=== PATIENT | male | born 1955 | race Caucasian/White ===

== ENCOUNTER 2019-12-09 15:40 | Inpatient (IN) ==
[2019-12-09] MEDS ORDERED: ASPIRIN CHEW 324 MG PO STA (16:05)
[2019-12-09] MEDS ORDERED: HEPARIN (PORCINE) 1000 UNIT/ML 10 ML (CATH LAB USE ONLY) ONE (16:15)
[2019-12-09] MEDS ORDERED: NiCARDipine HCL INJ 2.5 MG/ML 10 ML AMP ONE (16:15)
[2019-12-09] MEDS ORDERED: MIDAZOLAM HCL 1 MG/ML 2ML VIAL ONE (16:16)
[2019-12-09] MEDS ORDERED: fentaNYL citrate 100 MCG/2 ML VIAL ONE (16:16)
[2019-12-09] MEDS ORDERED: NITROGLYCERIN/D5W 100MCG/ML 20ML SYR ONE (16:17)
[2019-12-09 16:31] LABS: Basophils # (auto) 0.01 K/uL (0-0.2); Basophils % (auto) 0.1 %; Eosinophils # (auto) 0.04 K/uL (0-0.5); Eosinophils % (auto) 0.4 %; Hematocrit (blood only) 49.6 % (42-52); Hemoglobin 17.7 g/dL (14.0-18.0); Immature Granulocytes # (auto) 0.01 K/uL (0.00-0.02); Immature Granulocytes % (auto) 0.1 %; Lymphocytes # (auto) 1.36 K/uL (1.2-3.4); Lymphocytes % (auto) 14.2 %; Mean Corpuscular Hemoglobin 30.7 pg (25-34); Mean Corpuscular Hgb Conc 35.7 g/dL (32-36); Mean Platelet Volume 11.5 fL (7.4-10.4); Monocytes # (auto) 0.74 K/uL (0.11-0.59); Monocytes % (auto) 7.7 %; Neutrophils # (auto) 7.44 K/uL (1.4-6.5); Neutrophils % (auto) 77.5 %; Platelet Count 168 K/uL (130-400); RDW Coefficient of Variation 14.1 % (11.5-14.5); RDW Standard Deviation 43.3 fL (36.4-46.3); Red Blood Count 5.77 M/uL (4.7-6.1)
[2019-12-09] MEDS ORDERED: Heparin IV Low Dose WITH Bolus IV STA (16:38)
[2019-12-09 16:51] LABS: BUN Creatinine Ratio 10.5 (10-20); Calcium 9.6 mg/dl (8.5-10.1); Creatinine Clr Calc Pharmacy 47.5 ml/min; Est GFR (African American) 39.9; Est GFR (Non-African American) 34.4; Potassium 3.5 mmol/L (3.5-5.1)
[2019-12-09 17:01] LABS: Troponin I 0.033 ng/ml (0-0.045)
--- NOTE | 2019-12-09 17:39 | Cardiology Consultation ---
Date of Consultation December 09, 2019 Assessment & Plan (1) Atrial fibrillation: (2) Cardiomyopathy: (3) Pulmonary hypertension: (4) LBBB (left bundle branch block): (5) Shortness of breath: (6) Hypertension: (7) Tricuspid regurgitation: (8) CKD (chronic kidney disease): ASSESSMENT/PLAN: 1. Atrial fibrillation: New diagnosis for him. Could be causing his dyspnea with exertion as he is likely more tachycardic with exertion. At rest his heart rate was mostly 90s to 110s. Recommend increasing metoprolol and changing to metoprolol succinate given his reduced LV systolic function. Please consider metoprolol succinate 200 mg daily. Elevated chads Vasc score. Recommend antic oagulation for stroke risk reduction. He was agreeable. 2. Cardiomyopathy: Etiology uncertain. He does have significant QRS widening with his left bundle branch block. He has multiple risk factors for coronary disease including prior tobacco abuse, diabetes, and hypertension. We discussed potential ischemic evaluation but there is no urgent indication at this time is he does not appear to be acutely infarcting. His creatinine is elevated at 1.97 and therefore coronary angiography would increase risk of worsening renal function. It is not clear if this is his new baseline. Recommend metoprolol succinate as above. On losartan at home and can continue with no worsening of his renal function or consider changing to CHARITO-inhibitor. He appears euvolemic on examination and has recently lost 30 lb. Check BNP. He is not hypoxic. Check TSH. Cannot exclude tachycardia as a cause of his cardiomyopathy. 3. LBBB: New diagnosis for him but his most recent ECG to compare to was from 2 007. No acute symptoms to suggest acute infarct. Heart alert canceled. 4. Pulmonary hypertension: Etiology uncertain. No acute symptoms to suggest PE and he will be anticoagulated for atrial fibrillation. If cardiac catheterization is performed, would consider right heart catheterization as well. Does have Tobacco history. 5. Tricuspid regurgitation: Appeared moderate. Follow over time. 6. Hypertension: The can continue home medications with titration of beta- beverly as above for atrial fibrillation and cardiomyopathy. 7. CKD: On 04/06/2019 was 1.47 and today 1.97. As per primary service. 8. Disposition: I will be away from the hospital for the next [address] Huang will be available for any questions or concerns. Plan of care has been discussed with Dr. Wagner the primary hospitalist service. Highly complex medical issues. Thank you for allowing me to participate in the care of your patient. Please call for any other questions or concerns. Sincerely, Justin Solorzano M.D. History of Present Illness Reason for Consultation: Heart Alert Requesting Physician: Dr. Su Attending Physician: Dr. Su History of Present Illness Mr. Wang is a pleasant 64-year-old gentleman with a history significant for type 2 diabetes, prior stroke, and hypertension who was referred to the emergency department by his PCP today due to atrial fibrillation, dyspnea with exertion, and left bundle-branch block. Office ECG demonstrated atrial fibrillation at 92 bpm and LBBB. When he got to the emergency department, he had another ECG which demonstrated atrial fibrillation versus flutter at 97 bpm with LBBB. Due to symptoms of shortness of breath and ECG, heart alert was called by the emergency department. When presenting to the bedside, he admits that he has been short of breath for several months dating back to the summer. His shortness of breath is mostly dyspnea with exertion and believes it actually has gotten better recently. He recalls having PND a few weeks ago but none more recent. He denies orthopnea, syncope, near-syncope, chest discomfort, edema, palpitations, or bleeding such as melena, hematochezia, or hematuria. He has been unable to eat recently due to decreased appetite and could not give any further explanation but admits that he has lost approximately 30 lb over the past couple of months. He is adamant that his symptoms are no worse today than usual and that he is simply here because he was sent by his PCPs office. His PCP appointment was set up a few weeks ago as his neighbor is a physician and recommended that he be evaluated. at times, he denied shortness of breath currently but did appear short of breath at times when moving around in his bed. He denies leg pain, recent fevers, abdominal pain, nausea, vomiting, diarrhea. Review of systems: As above. Review of systems otherwise negative/unremarkable. Family history: No known premature CAD. Father had NV in his 70s. Social history: He quit smoking years ago. He has not consumed alcohol for greater than 1 year. No drugs. He has not been . No children. He lives alone. 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 He is unaccompanied. Allergies Allergy/AdvReac Type Severity Reaction Status Date / Time No Known Allergies Allergy Mild Verified 05/24/19 13:41 Home Medications Home Medications Medication Instructions Recorded Confirmed Type amlodipine 10 mg tablet 5 mg PO BID #30 tab 04/25/19 05/24/19 Rx losartan 100 mg tablet 100 mg PO DAILY #90 tab 06/24/19 Rx metoprolol tartrate 50 mg tablet 50 mg PO BID #180 tab 06/24/19 Rx peg 3350-electrolytes 236 240 ml PO Q10M #4000 ml 07/20/19 Rx gram-22.74 gram-6.74 gram-5.86 gram solution aspirin 81 mg tablet,delayed 81 mg PO DAILY #30 tab 11/29/19 11/29/19 History release metformin 500 mg tablet 500 mg PO DAILY #60 tab 11/29/19 11/29/19 History Patient History Medical History H/O: CVA (cerebrovascular accident) (Resolved) Hypertension (Chronic) Type 2 diabetes mellitus (Chronic) Surgical History History of facial surgery Family History Father Lymphoma Myocardial infarction Mother Lung cancer Social History Preferred Language: Indonesian Feels Safe at Home: Yes Smoking Status: Former smoker Age Started Using Tobacco: 14 ; Age Quit Using Tobacco: 48 ; Cigarettes Per Day: 10 ; Second Hand Exposure: No ; Physical Exam Physical Exam: Gen.: No acute distress. Alert and oriented. HEENT: Anicteric sclera. Neck: No appreciable JVD, but thick neck. No bruits. Normal carotid upstrokes bilaterally. Cardiac: PMI was nondisplaced. No ventricular heave. Irregularly irregular. Normal S1-S2. No murmurs, rubs, or gallops. Pulmonary: Clear to auscultation bilaterally without wheezes, rales, or rhonchi. Abdomen: Soft, nontender, nondistended, with normoactive bowel sounds. No bruits noted. Extremities: 2+ radial pulses bilaterally. 2+ posterior tibialis pulses bilaterally. No edema or cyanosis. No palpable cords. Psychiatric: Affect appears appropriate. Results & Data Vital Signs (Past 12 Hours) Vital Signs Temp Pulse Pulse Resp BP BP Pulse Ox 12/09/19 16:00 84 22 133/100 98 12/09/19 15:45 36.4 C L 104 H 22 154/93 H 97 Laboratory Results Laboratory Results - last 24 hr 12/09/19 12/09/19 12/09/19 16:15 16:15 16:15 WBC 9.60 RBC 5.77 Hgb 17.7 Hct 49.6 MCV 86.0 MCH 30.7 MCHC 35.7 RDW Std Deviation 43.3 RDW Coeff of Liss 14.1 Plt Count 168 MPV 11.5 H Immature Gran % (Auto) 0.1 Neut % (Auto) 77.5 Lymph % (Auto) 14.2 [place] % (Auto) 7.7 Eos % (Auto) 0.4 Baso % (Auto) 0.1 Immature Gran # (Auto) 0.01 Neut # (Auto) 7.44 H Lymph # (Auto) 1.36 [place] # (Auto) 0.74 H Eos # (Auto) 0.04 Baso # (Auto) 0.01 Sodium 139 Potassium 3.5 Chloride 106 Carbon Dioxide 22 Anion Gap 11.0 BUN 21 H Creatinine 1.97 H Est Cr Clr Drug Dosing 47.5 Est GFR ( Amer) 39.9 Est GFR (Non-Af Amer) 34.4 BUN/Creatinine Ratio 10.5 Glucose 181 H Calcium 9.6 Troponin I 0.033 Lipase 256 Diagnostic Findings ECGs personally reviewed as noted above. ECG from 05/03/2007 reviewed: Sinus rhythm 89 bpm. LVH. Lateral T-wave inversion. Chest x-ray 12/09/2019: Personally reviewed. Radiology interpretation is pending. No obvious infiltrate. Cardiomegaly however AP study. Vascular markings similar to 04/06/2019 chest x-ray. Echo 12/09/2019 reviewed at the bedside: Normal LV size with moderately to severely reduced systolic function. EF 30-35%. Global hypokinesis. Septal motion consistent with bundle-branch block. Mild to moderate LVH. Mildly dilated RV with mildly reduced systolic function. Mild MR. Moderate TR. RVSP 73. Medications Administered Current Inpatient Medications Heparin Sodium/Dextrose (Heparin Sodium/Dextrose) 25,000 units in 500 mls @ 20 mls/hr IV .Q24H YESSENIA; Protocol Stop: 01/08/20 16:44 PG Care Time/CCT Total # of Minutes Spent Total Time Spent with Patient: Total time spent is greater than 50% in coordination of care (as documented) at patient's floor/unit and/or counseling patient: Coding Level of Care Code 52069 Initial Inpt Care Lvl 3 Diagnoses Atrial fibrillation I48.91 Cardiomyopathy I42.9 Pulmonary hypertension I27.20 LBBB (left bundle branch block) I44.7 Shortness of breath R06.02 Hypertension I10 Tricuspid regurgitation I07.1 CKD (chronic kidney disease) N18.9
[2019-12-09] MEDS ORDERED: HEPARIN SOD (PORCINE) 1000 UNIT/ML 10 ML VIAL ONE (17:51)
[2019-12-09] MEDS: HEPARIN SODIUM/DEXTROSE 25,000 UNITS/500 ML BAG IV SCH (17:56)
--- NOTE | 2019-12-09 18:13 | XRay Report ---
XR chest 1V portable HISTORY: Atypical Chest Pain COMPARISON: Chest 04/06/2019. FINDINGS: The heart remains mildly enlarged. There are low lung volumes. The lungs are clear. No pleu ral effusion. No pneumothorax. No evidence for pulmonary edema. IMPRESSION: Stable mild cardiomegaly. ACT 112: Negative or not required by law. Electronically signed by: Lester Aviles M.D. 12/09/2019 6:11 PM
[2019-12-09] MEDS ORDERED: ACETAMINOPHEN 325 MG TAB PO PRN (18:36)
[2019-12-09] MEDS ORDERED: ONDANSETRON INJ 2 MG/ML 2 ML VIAL IV PRN (18:36)
[2019-12-09 19:09] LABS: Thyroid Stimulating Hormone 1.68 uIu/ml (0.300-4.500)
--- NOTE | 2019-12-09 19:12 | History & Physical Report ---
Date of Service December 09, 2019 Assessment & Plan (1) Atrial fibrillation: new diagnosis, rate is somewhat controlled at rest, 90-100, goes up with minimal activity will give Lopressor 100mg this evening (increase from normal 50mg dose) will start Toprol 200mg daily in the morning heparin drip for initial anticoagulation because renal function prohibits Lovenox may need a procedure while here so will not commit to NOAC until plan is clearer observation on tele (2) Shortness of breath: chief complaint, ongoing for about a year, slowly getting worse likely multifactorial could have undiagnosed lung disease as he was a smoker up until 15 years ago has severe pulmonary hypertension which is also contributing could be rate related dyspnea if he is have RVR on exertion will discussed with pulmonary tomorrow, hold on formal consult since it could likely wait until outpatient setting (3) Cardiomyopathy: change to Toprol 200mg daily continue Losartan certainly could have ischemic heart disease no need for urgent cath as there is no evidence of infarction renal function would need to be better prior to cath can likely defer to outpatient (4) Pulmonary hypertension: continue Amlodipine discuss with pulmonary may consider work up such as right heart cath while here (5) LBBB (left bundle branch block): troponin negative no chest pain/pressure likely chronic issue (6) CKD (chronic kidney disease): stage III/IV disease will follow BMP daily may be prohibitive of getting heart cath (7) Type 2 diabetes mellitus: (8) Hypertension: History of Present Illness Chief Complaint: I can't breathe Primary Care Provider: Nora Womack MD 64 yo male with history of HTN, tobacco abuse who presented to the ED today due to worsening shortness of breath. He reports that he has noticed some dyspnea over the past year, started with some mild dyspnea on exertion, he noticed he would get winded faster than in the past. He noticed that he could not walk as far without getting short of breath. Progressed to the point that he was having some dyspnea at rest, had some nocturnal dyspnea, orthopnea. He was advised by his neighbor to get evaluated. He called his PCP and she advised him to come to the ED for evaluation. Dyspnea is his primary complaint. He denies having chest pain or pressure, no palpitations. No fever/chills, no cough. He smoked up until 15 years ago, he was 49 at the time he quit, smoked for 30 years. 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 Prior to these symptoms starting gradually a year ago, he has never experienced shortness of breath. Reports that he was an avid hiker, would carry heavy back pack and would hike up the mountains in the area without difficulty. He has not been able to do that the past year. No known history of coronary disease. He does not follow with his PCP very closely, has a history of HTN and he reports that he takes his medications as prescribed. In the ED he was found to be in atrial fibrillation with rates in the 90-100 range. He had a new LBBB on the EKG. Cardiology called to evaluate patient, initially a heart alert was called due to the new LBBB finding. Since he had no chest pain or pressure and it was unclear if the LBBB was brand new, a troponin was ordered. Troponin was 0.03 so he was not taken for heart cath. CXR showed cardiomegaly. BNP elevated at 5000. Urgent echocardiogram performed, showed reduced EF of 35%, extremely high pulmonary pressures at 73mmHg, tricuspid regurgitation. Discussed plan with Dr. Solorzano at the time of admission. Allergies Allergy/AdvReac Type Severity Reaction Status Date / Time No Known Allergies Allergy Mild Verified 05/24/19 13:41 Home Medications Home Medications Medication Instructions Recorded Confirmed Type amlodipine 10 mg tablet 5 mg PO BID #30 tab 04/25/19 05/24/19 Rx losartan 100 mg tablet 100 mg PO DAILY #90 tab 06/24/19 Rx metoprolol tartrate 50 mg tablet 50 mg PO BID #180 tab 06/24/19 Rx peg 3350-electrolytes 236 240 ml PO Q10M #4000 ml 07/20/19 Rx gram-22.74 gram-6.74 gram-5.86 gram solution aspirin 81 mg tablet,delayed 81 mg PO DAILY #30 tab 11/29/19 11/29/19 History release metformin 500 mg tablet 500 mg PO DAILY #60 tab 11/29/19 11/29/19 History Past Med/Surg History Medical History H/O: CVA (cerebrovascular accident) (Resolved) Hypertension (Chronic) Type 2 diabetes mellitus (Chronic) Surgical History History of facial surgery Family History Father Lymphoma Myocardial infarction Mother Lung cancer Social History Preferred Language: [place] Communication Ability: Effective 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 Beliefs That Will Affect Care: None Current Living Situation: Alone Feels Safe at Home: Yes Smoking Status: Former smoker Age Started Using Tobacco: 14 ; Age Quit Using Tobacco: 48 ; Cigarettes Per Day: 10 ; Second Hand Exposure: No ; Hx Alcohol Use: No Hx Substance Use: No Review of Systems Review of Systems: All systems reviewed & are unremarkable except as noted in HPI & below Constitutional: + weight loss (30 lbs); no fever, no chills, no sweats, no fatigue and no weakness Respiratory: + dyspnea and + dyspnea on exertion; no cough, no hemoptysis and no wheezing Cardiovascular: + dyspnea and + dyspnea on exertion; no chest pain, no palpitations, no syncope and no edema Gastrointestinal: no abdominal pain, no nausea, no vomiting, no constipation and no diarrhea/loose stools Genitourinary: no dysuria, no difficulty urinating, no urinary frequency and no urinary hesitancy Neurologic: no falls, no localized weakness, no generalized weakness, no numbness, no tremor(s) and no headache(s) Physical Exam Constitutional: WD/WN, vitals as above + obese; no acute distress Eyes: PERRL, conjunctivae normal, anicteric sclerae ENMT: external ear and nose normal, oropharynx normal Neck: trachea midline, no thyromegaly Respiratory: normal respiratory effort; no respiratory distress Auscultation: + diminished lung sounds; no crackles, no rhonchi and no wheezes Cardiovascular: Rate/Rhythm: + tachycardic and + irregularly irregular Heart Sounds: normal S1 and normal S2 Extremities: normal capillary refill; no edema Gastrointestinal (Abdomen): normal bowel sounds, soft, nontender, no hepatosplenomegaly Musculoskeletal: no cyanosis or clubbing, extremities motor strength 5/5 Skin: no rashes, warm and dry Neurologic: patellar DTR's 2+ bilat, sensation intact and PERRL, EOMI, accommodation nl, no face palsy, no dysarthria Psychiatric: A+Ox3, euthymic affect Lymphatic: no cervical or axillary lymphadenopathy Results & Data Vital Signs (Past 12 Hours) Vital Signs Temp Pulse Pulse Resp BP BP Pulse Ox 12/09/19 18:38 36.8 C 92 H 18 172/100 H 97 12/09/19 18:00 110 H 14 124/69 95 12/09/19 16:05 95 12/09/19 16:00 84 22 133/100 98 12/09/19 15:45 36.4 C L 104 H 22 154/93 H 97 Laboratory Results Laboratory Results - last 24 hr 12/09/19 12/09/19 12/09/19 16:15 16:15 16:15 WBC 9.60 RBC 5.77 Hgb 17.7 Hct 49.6 MCV 86.0 MCH 30.7 MCHC 35.7 RDW Std Deviation 43.3 RDW Coeff of Liss 14.1 Plt Count 168 MPV 11.5 H Immature Gran % (Auto) 0.1 Neut % (Auto) 77.5 Lymph % (Auto) 14.2 [place] % (Auto) 7.7 Eos % (Auto) 0.4 Baso % (Auto) 0.1 Immature Gran # (Auto) 0.01 Neut # (Auto) 7.44 H Lymph # (Auto) 1.36 [place] # (Auto) 0.74 H Eos # (Auto) 0.04 Baso # (Auto) 0.01 Sodium 139 Potassium 3.5 Chloride 106 Carbon Dioxide 22 Anion Gap 11.0 BUN 21 H Creatinine 1.97 H Est Cr Clr Drug Dosing 47.5 Est GFR ( Amer) 39.9 Est GFR (Non-Af Amer) 34.4 BUN/Creatinine Ratio 10.5 Glucose 181 H POC Glucose Calcium 9.6 Magnesium Troponin I 0.033 NT-Pro-B Natriuret Pep Lipase 256 TSH 12/09/19 12/09/19 16:15 20:17 WBC RBC Hgb Hct MCV MCH MCHC RDW Std Deviation RDW Coeff of Liss Plt Count MPV Immature Gran % (Auto) Neut % (Auto) Lymph % (Auto) [place] % (Auto) Eos % (Auto) Baso % (Auto) Immature Gran # (Auto) Neut # (Auto) Lymph # (Auto) [place] # (Auto) Eos # (Auto) Baso # (Auto) Sodium Potassium Chloride Carbon Dioxide Anion Gap BUN Creatinine Est Cr Clr Drug Dosing Est GFR ( Amer) Est GFR (Non-Af Amer) BUN/Creatinine Ratio Glucose POC Glucose 171 H Calcium Magnesium 2.0 Troponin I NT-Pro-B Natriuret Pep 5689 H Lipase TSH 1.680 Diagnostic Findings XR chest 1V portable IMPRESSION: Stable mild cardiomegaly ECHOCARDIOGRAM reduced EF of 35%, elevated pulmonary arterial pressure of 73mmHg, tricuspid regurgitation ECG Indication: SOB/dyspnea Rhythm: atrial fibrillation Findings: + LBBB Change: the following changes noted (LBBB) Code Status & VTE Plan Code Status full code VTE Prophylaxis Plan VTE Prophylaxis will be ordered: Yes PG Care Time/CCT Total # of Minutes Spent Total Time Spent with Patient: Total time spent is greater than 50% in coordination of care (as documented) at patient's floor/unit and/or counseling patient: Coding Level of Care Code 34259 OBS Care - Level 3 Diagnoses Atrial fibrillation I48.91 Shortness of breath R06.02 Cardiomyopathy I42.9 Pulmonary hypertension I27.20 LBBB (left bundle branch block) I44.7 CKD (chronic kidney disease) N18.9 Type 2 diabetes mellitus E11.9 Hypertension I10
--- NOTE | 2019-12-09 20:10 | Emergency Department Note ---
Entered by Bulmaro Hannah acting as a scribe for History of Present Illness General Chief complaint: Shortness of Breath/Dyspnea Stated complaint: SOB Time Seen by Provider: 12/09/19 16:00 Source: patient History of Present Illness Onset (ago): month(s) (few) Location: chest Pain Consistency: + intermittent Maximum Pain Intensity: 1 Quality: + other (SOB) Exacerbated By: + movement (exertion) Associated symptoms: + denies other symptoms (palpitations); no chest pain The patient is a 64 y/o male who presents to the ED w/ CC of intermittent shortness of breath beginning a few months ago. The patient states his shortness of breath worsens with exertion. He reports he was evaluated by his PCP and was diagnosed with new onset A-fib. The patient notes he was told to come to the ED for further evaluation. He denies chest pain at this time and palpitations. Patient denies any recent travel. No exogenous hormone usage. No hemoptysis. No fevers. Home Medications Home Medications Medication Instructions Recorded Confirmed Type amlodipine 10 mg tablet 5 mg PO BID #30 tab 04/25/19 05/24/19 Rx losartan 100 mg tablet 100 mg PO DAILY #90 tab 06/24/19 Rx metoprolol tartrate 50 mg tablet 50 mg PO BID #180 tab 06/24/19 Rx peg 3350-electrolytes 236 240 ml PO Q10M #4000 ml 07/20/19 Rx gram-22.74 gram-6.74 gram-5.86 gram solution aspirin 81 mg tablet,delayed 81 mg PO DAILY #30 tab 11/29/19 11/29/19 History release metformin 500 mg tablet 500 mg PO DAILY #60 tab 11/29/19 11/29/19 History Allergies Allergy/AdvReac Type Severity Reaction Status Date / Time No Known Allergies Allergy Mild Verified 05/24/19 13:41 Past Med/Surg History Medical History H/O: CVA (cerebrovascular accident) (Resolved) Hypertension (Chronic) Type 2 diabetes mellitus (Chronic) Surgical History History of facial surgery Family History Father Lymphoma Myocardial infarction Mother Lung cancer Social History Preferred Language: Bahamian Communication Ability: Effective Ignition Mechanic Required: No Beliefs That Will Affect Care: None Current Living Situation: Alone Feels Safe at Home: Yes Smoking Status: Former smoker Age Started Using Tobacco: 14 ; Age Quit Using Tobacco: 48 ; Cigarettes Per Day: 10 ; Second Hand Exposure: No ; Hx Alcohol Use: No Hx Substance Use: No Review of Systems See HPI for pertinent positives & negatives. and A total of 10 systems reviewed and were otherwise negative Physical Exam Vital Signs Vital Signs - 24 hr 12/09/19 15:45 12/09/19 16:00 12/09/19 16:05 Temperature 36.4 C L Temperature Source Oral Pulse Rate 104 H Pulse Rate [Right Radial] 84 Pulse Rhythm [Right Radial] Irregular Pulse Strength [Right Radial] Normal Respiratory Rate 22 22 Respiratory Effort / Characteristics Non-Labored Spontaneous Respiratory Depth Normal Respiratory Pattern Regular Blood Pressure 154/93 H Blood Pressure [Right Arm] 133/100 Blood Pressure Mean 113 Blood Pressure Mean [Right Arm] 111 Blood Pressure Position [Right Arm] Sitting Pulse Oximetry 97 98 95 Oxygen Delivery Method Room Air Room Air Room Air Sepsis Recent Fever Within 48 Hours No Sepsis New/Unexplained Change in Mental Status No Sepsis Action Taken by Nursing No Action Required GENERAL: He is oriented to person, place, and time. He appears well-developed and well-nourished. He does not appear distressed. HENT: Exam performed. - Head: Normocephalic and atraumatic. - Right Ear: External ear normal. No mastoid tenderness. - Left Ear: External ear normal. No mastoid tenderness. - Mouth/Throat: The oropharynx is clear and moist. No trismus in the jaw. No dental abscesses or uvula swelling. No oropharyngeal exudate or tonsillar abscesses. EYES: Conjunctivae and EOM are normal. Pupils are equal, round, and reactive to light. Right eye exhibits no discharge. Left eye exhibits no discharge. No scleral icterus. NECK: Normal range of motion. Neck supple. No JVD present. No spinous process tenderness present. No carotid bruit present. No rigidity. No tracheal deviation and normal range of motion present. No Brudzinski's sign and no Kernig's sign noted. CV: Regular rate, irregular rhythm, normal heart sounds and intact distal pulses. There is no peripheral edema. Palpable radial pulses bue. PULM/CHEST: Effort normal and breath sounds normal. No respiratory distress. No stridor. He has no wheezes. He has no rales. - Chest Wall: He exhibits no tenderness. ABD: The abdomen is soft. Bowel sounds are normal. He has no distension. No mass is present. There is no tenderness. There is no rebound, no guarding, no Frausto's sign and no tenderness at McBurney's point. Rovsig negative. MUSC/SKEL: Normal range of motion. There is no peripheral edema, tenderness or deformity. LYMPH: No cervical adenopathy. NEURO: He is alert and oriented to person, place, and time. He has normal strength. No cranial nerve deficit or sensory deficit. Coordination and gait normal. GCS eye subscore is 4. GCS verbal subscore is 5. GCS motor subscore is 6. Cerebellar tests wnl. SKIN: Skin is warm and dry. He is not diaphoretic. PSYCH: He has a normal mood and affect. Behavior is normal. Judgment and thought content normal. Course Course 1601: Past medical records reviewed. The patient was evaluated in room B10. A complete history and physical exam was performed. 1613: EKG showed atrial fibrillation with a new left bundle branch block. Kylie's was positive. When compared to the previous EKG, the atrial fibrillation and left bundle branch block are new. A heart alert was called. Dr. Solorzano, Cardiology evaluated the patient because Dr. Andrews was scrubbed in on in the procedure. He asked me to order a STAT echocardiogram. 1623: Dr. Solorzano at bedside viewing the stat echo performed by the machine operator slitter technician and he states the patient has a poor EF and should be admitted to the hospitalist service and started on heparin. If the patient has an elevated troponin, he will take the patient to the lab coordinator. If there is no elevation in his troponin, the patient does not need an emergent catheterization. 1650: I updated the patient of the treatment plan. He is in agreement with the plan. I reviewed the patient's case with Konstantin [facility] Hospitalist. She will evaluate the patient for further management. Administered Medications Heparin Sodium/Dextrose (Heparin Sodium/Dextrose) 25,000 units in 500 mls @ 20 mls/hr IV .Q24H YESSENIA; Protocol Stop: 01/08/20 16:44 Last Titration: 12/09/19 19:15 Dose: 1,000 units/hr, 20 mls/hr Documented by: [id number] Cosigned by: [id number] Titration: 12/09/19 18:30 Dose: 1,000 units/hr, 20 mls/hr Documented by: [id number] Cosigned by: [id number] Admin: 12/09/19 17:56 Dose: 1,000 units/hr, 20 mls/hr Documented by: [id number] Cosigned by: [id number] Discontinued Medications Aspirin (Aspirin) 324 mg PO NOW STA Stop: 12/09/19 16:06 Last Admin: 12/09/19 16:15 Dose: 324 mg Documented by: [id number] Fentanyl Citrate (Fentanyl Citrate) Confirm Administered Dose 100 mcg .ROUTE .STK-MED ONE Stop: 12/09/19 16:17 Last Admin: 12/09/19 17:35 Dose: Not Given Documented by: [id number] Heparin Sodium (Porcine) (Heparin Iv Bolus ([employer] Use Only)) Confirm Ad ministered Dose 10,000 units .ROUTE .STK-MED ONE Stop: 12/09/19 16:16 Last Admin: 12/09/19 17:36 Dose: Not Given Documented by: [id number] Heparin Sodium (Porcine) (Heparin Iv Bolus) Confirm Administered Dose 10,000 units .ROUTE .STK-MED ONE Stop: 12/09/19 17:52 Last Admin: 12/09/19 17:56 Dose: 4,000 units Documented by: [id number] Cosigned by: [id number] Heparin Sodium/Dextrose () 1 ea IV NOW STA; Protocol Stop: 12/09/19 16:39 Last Admin: 12/09/19 17:55 Dose: 1 ea Documented by: [id number] Heparin Sodium/Sodium Chloride (Heparin/Nss 1000 Unit/500ml Flush Bag) Confirm Administered Dose 3,000 units IV .STK-MED ONE Stop: 12/09/19 16:18 Last Admin: 12/09/19 17:35 Dose: Not Given Documented by: [id number] Midazolam HCl (Versed) Confirm Administered Dose 2 mg .ROUTE .STK-MED ONE Stop: 12/09/19 16:17 Last Admin: 12/09/19 17:35 Dose: Not Given Documented by: [id number] Nicardipine HCl (Cardene) Confirm Administered Dose 25 mg .ROUTE .STK-MED ONE Stop: 12/09/19 16:16 Last Admin: 12/09/19 17:36 Dose: Not Given Documented by: [id number] Nitroglycerin/Dextrose (Nitroglycerin/D5w 100 Mcg/Ml 20ml Syringe) Confirm Administered Dose 2,000 mcg .ROUTE .STK-MED ONE Stop: 12/09/19 16:18 Last Admin: 12/09/19 17:35 Dose: Not Given Documented by: [id number] Critical Care Time Critical Care Time: Yes Total Critical Care Time: 49 I have personally spent 49 minutes of critical care time in the direct management of this patient. This includes bedside care, interpretation of diagnostic studies, and testing, discussion with consultants, patient, and family members, and other required patient management activities. This 49 minutes is in excess of all separately billable procedures. Medical Decision Making Medical Records Attestation: I reviewed the patient's medical records. Home Medications Current Medication List: was personally reviewed by me Laboratory Data Attestation: I reviewed the patient's lab results. Result diagrams: 12/09/19 16:15 12/09/19 16:15 Lab Results 12/09/19 12/09/19 12/09/19 Range/Units 16:15 16:15 16:15 WBC 9.60 (4.8-10.8) K/uL RBC 5.77 (4.7-6.1) M/uL Hgb 17.7 (14.0-18.0) g/dL Hct 49.6 (42-52) % MCV 86.0 (80-100) fL MCH 30.7 (25-34) pg MCHC 35.7 (32-36) g/dL RDW Std Deviation 43.3 (36.4-46.3) fL RDW Coeff of Liss 14.1 (11.5-14.5) % Plt Count 168 (130-400) K/uL MPV 11.5 H (7.4-10.4) fL Immature Gran % (Auto) 0.1 % Neut % (Auto) 77.5 % Lymph % (Auto) 14.2 % [place] % (Auto) 7.7 % Eos % (Auto) 0.4 % Baso % (Auto) 0.1 % Immature Gran # (Auto) 0.01 (0.00-0.02) K/uL Neut # (Auto) 7.44 H (1.4-6.5) K/uL Lymph # (Auto) 1.36 (1.2-3.4) K/uL [place] # (Auto) 0.74 H (0.11-0.59) K/uL Eos # (Auto) 0.04 (0-0.5) K/uL Baso # (Auto) 0.01 (0-0.2) K/uL Sodium 139 (136-145) mmol/L Potassium 3.5 (3.5-5.1) mmol/L Chloride 106 (98-107) mmol/L Carbon Dioxide 22 (21-32) mmol/L Anion Gap 11.0 (3-11) BUN 21 H (7-18) mg/dl Creatinine 1.97 H (0.6-1.4) mg/dl Est Cr Clr Drug Dosing 47.5 ml/min Est GFR ( Amer) 39.9 Est GFR (Non-Af Amer) 34.4 BUN/Creatinine Ratio 10.5 (10-20) Glucose 181 H (70-99) mg/dl Calcium 9.6 (8.5-10.1) mg/dl Magnesium (1.8-2.4) mg/dl Troponin I 0.033 (0-0.045) ng/ml NT-Pro-B Natriuret Pep (0-900) pg/ml Lipase 256 (73-393) U/L TSH (0.300-4.500) uIu/ml 12/09/19 Range/Units 16:15 WBC (4.8-10.8) K/uL RBC (4.7-6.1) M/uL Hgb (14.0-18.0) g/dL Hct (42-52) % MCV (80-100) fL MCH (25-34) pg MCHC (32-36) g/dL RDW Std Deviation (36.4-46.3) fL RDW Coeff of Liss (11.5-14.5) % Plt Count (130-400) K/uL MPV (7.4-10.4) fL Immature Gran % (Auto) % Neut % (Auto) % Lymph % (Auto) % [place] % (Auto) % Eos % (Auto) % Baso % (Auto) % Immature Gran # (Auto) (0.00-0.02) K/uL Neut # (Auto) (1.4-6.5) K/uL Lymph # (Auto) (1.2-3.4) K/uL [place] # (Auto) (0.11-0.59) K/uL Eos # (Auto) (0-0.5) K/uL Baso # (Auto) (0-0.2) K/uL Sodium (136-145) mmol/L Potassium (3.5-5.1) mmol/L Chloride (98-107) mmol/L Carbon Dioxide (21-32) mmol/L Anion Gap (3-11) BUN (7-18) mg/dl Creatinine (0.6-1.4) mg/dl Est Cr Clr Drug Dosing ml/min Est GFR ( Amer) Est GFR (Non-Af Amer) BUN/Creatinine Ratio (10-20) Glucose (70-99) mg/dl Calcium (8.5-10.1) mg/dl Magnesium 2.0 (1.8-2.4) mg/dl Troponin I (0-0.045) ng/ml NT-Pro-B Natriuret Pep 5689 H (0-900) pg/ml Lipase (73-393) U/L TSH 1.680 (0.300-4.500) uIu/ml Imaging Data Radiologist's Impression: Radiology results as stated below per my review and the radiologist's interpretation: XR chest 1V portable HISTORY: Atypical Chest Pain COMPARISON: Chest 04/06/2019. FINDINGS: The heart remains mildly enlarged. There are low lung volumes. The lungs are clear. No pleural effusion. No pneumothorax. No evidence for pulmonary edema. IMPRESSION: Stable mild cardiomegaly. ACT 112: Negative or not required by law. Electronically signed by: Lester Aviles M.D. 12/09/2019 6:11 PM ECG Data Attestation: I personally reviewed and interpreted this ECG as follows: Indication: + SOB/dyspnea Rate (beats per minute): 97 Rhythm: + atrial fibrillation ECG Intervals/blocks: + Left bundle branch block ECG Findings: + Other (QRS 154, QTc 457, sgarbossa positive) Comparison ECG Date: from (2006) Change: the following changes noted (A-fib and LBBB are new) Blood Pressure Blood Pressure Findings: Elevated blood pressure Blood Pressure Disposition: further management by hospitalist FLACO Narrative 1601: Past medical records reviewed. The patient was evaluated in room B10. A complete history and physical exam was performed. 1613: EKG showed atrial fibrillation with a new left bundle branch block. Kylie's was positive. When compared to the previous EKG, the atrial fibrillation and left bundle branch block are new. A heart alert was called. Dr. Solorzano, Cardiology evaluated the patient because Dr. Andrews was scrubbed in on in the procedure. He asked me to order a STAT echocardiogram. 1623: Dr. Solorzano at bedside viewing the stat echo performed by the machine operator slitter technician and he states the patient has a poor EF and should be admitted to the hospitalist service and started on heparin. If the patient has an elevated troponin, he will take the patient to the lab coordinator. If there is no elevation in his troponin, the patient does not need an emergent catheterization. 1650: I updated the patient of the treatment plan. He is in agreement with the plan. I reviewed the patient's case with Konstantin [facility] Hospitalist. She will evaluate the patient for further management. Impression & Plan Atrial fibrillation, Left bundle branch block (LBBB) Discharge Plan Visit Data *Final* Discharge Date/Time: 12/09/19 18:12 Chief Complaint: Shortness of Breath/Dyspnea Stated Complaint: SOB ED Provider: Darian Su Discharge Problem: Atrial fibrillation, Left bundle branch block (LBBB) Patient Disposition: Being Evaluated by Hospitalist Discharge Instructions Interventions: ED Discharge Assessment Last Done: 12/09/19 18:12 Discharge Problem: Atrial fibrillation Qualifiers: Atrial fibrillation type: unspecified Qualified Code(s): I48.91 - Unspecified atrial fibrillation The scribe's documentation has been prepared under my direction and personally reviewed by me in its entirety. I confirm that the note above accurately reflects all work, treatment, procedures, and medical decision making performed by me.
[2019-12-09] MEDS: AMLODIPINE BESYLATE 5 MG TAB PO SCH (20:28)
[2019-12-09] MEDS: METOPROLOL TARTRATE 100 MG TAB PO SCH (20:38)
[2019-12-09] MEDS ORDERED: DEXTROSE 50% 50 ML SYRINGE IV PRN (20:54)
[2019-12-09] MEDS ORDERED: GLUCOSE 40% GEL 15 GM TUBE PO PRN (20:54)
[2019-12-09] MEDS ORDERED: CARBOHYDRATES FOR HYPOGLYCEMIA PO PRN (20:54)
[2019-12-09] MEDS ORDERED: GLUCAGON FOR INJ 1 MG VIAL SQ PRN (20:54)
[2019-12-09] MEDS ORDERED: GLUCOSE 10 TABS/TUBE PO PRN (20:54)
[2019-12-09] MEDS ORDERED: METOPROLOL TARTRATE 50 MG TAB PO SCH (21:00)
[2019-12-09] MEDS: INSULIN ASPART 100 UNITS/ML 3 ML PEN SC SCH (21:26)
[2019-12-10 00:43] LABS: Partial Thromboplastin Ratio 1.2; Partial Thromboplastin Time 32.2 Seconds (21.0-31.0)
[2019-12-10] MEDS ORDERED: HEPARIN IV BOLUS 4,500 UNITS in SYRINGE 0 ML IV ONE ×2 (00:49→09:00)
--- NOTE | 2019-12-10 06:42 | Electrocardiogram Report ---
Test Reason : Blood Pressure : / mmHG Vent. Rate : 097 BPM Atrial Rate : 097 BPM P-R Int : 000 ms QRS Dur : 154 ms QT Int : 360 ms P-R-T Axes : 000 -28 126 degrees QTc Int : 457 ms Atrial fibrillation Left bundle branch block Abnormal ECG When compared with ECG of 03-MAY-2007 10:06, Atrial fibrillation has replaced Sinus rhythm Left bundle branch block is now Present Confirmed by Vu Solorzano ([id number]) on 12/10/2019 6:42:16 AM Referred By: REFERRED SELF Confirmed By:Vu Solorzano
[2019-12-10 08:14] LABS: Basophils # (auto) 0.02 K/uL (0-0.2); Basophils % (auto) 0.3 %; Eosinophils # (auto) 0.08 K/uL (0-0.5); Eosinophils % (auto) 1.1 %; Hematocrit (blood only) 49.2 % (42-52); Hemoglobin 17.3 g/dL (14.0-18.0); Immature Granulocytes # (auto) 0.01 K/uL (0.00-0.02); Immature Granulocytes % (auto) 0.1 %; Lymphocytes # (auto) 1.74 K/uL (1.2-3.4); Lymphocytes % (auto) 23.1 %; Mean Corpuscular Hemoglobin 30.2 pg (25-34); Mean Corpuscular Hgb Conc 35.2 g/dL (32-36); Mean Corpuscular Volume 85.9 fL (80-100); Mean Platelet Volume 11.2 fL (7.4-10.4); Monocytes # (auto) 0.62 K/uL (0.11-0.59); Monocytes % (auto) 8.2 %; Neutrophils # (auto) 5.05 K/uL (1.4-6.5); Neutrophils % (auto) 67.2 %; Platelet Count 141 K/uL (130-400); RDW Coefficient of Variation 14.3 % (11.5-14.5); RDW Standard Deviation 43.7 fL (36.4-46.3); Red Blood Count 5.73 M/uL (4.7-6.1); White Blood Count 7.52 K/uL (4.8-10.8)
[2019-12-10 08:23] LABS: Partial Thromboplastin Ratio 1.3; Partial Thromboplastin Time 36.5 Seconds (21.0-31.0)
[2019-12-10] MEDS: INSULIN ASPART 100 UNITS/ML 3 ML PEN SC SCH ×4 (08:40→20:10)
[2019-12-10] MEDS: METOPROLOL TARTRATE 100 MG TAB PO SCH ×2 (08:41→20:12)
[2019-12-10] MEDS: ASPIRIN 81 MG ECTAB PO SCH (08:41)
[2019-12-10] MEDS: AMLODIPINE BESYLATE 5 MG TAB PO SCH ×2 (08:41→20:11)
[2019-12-10 08:55] LABS: BUN Creatinine Ratio 13.6 (10-20); Calcium 9.4 mg/dl (8.5-10.1); Creatinine Clr Calc Pharmacy 46.7 ml/min; Est GFR (African American) 39.4; Potassium 3.4 mmol/L (3.5-5.1)
[2019-12-10] MEDS: METOPROLOL SUCC 50MG EXT REL TAB PO SCH (10:11)
--- NOTE | 2019-12-10 11:10 | Hospitalist Progress Note ---
Date of Service December 10, 2019 Assessment & Plan (1) Atrial fibrillation: new diagnosis, rate is somewhat controlled at rest, 90-100, goes up with minimal activity continue Lopressor 100mg BID will start Toprol 200mg daily tomorrow morning heparin drip for initial anticoagulation because renal function prohibits Lovenox plan for NOAC tomorrow (2) Shortness of breath: chief complaint, ongoing for about a year, slowly getting worse likely multifactorial could have undiagnosed lung disease as he was a smoker up until 15 years ago has severe pulmonary hypertension which is also contributing could be rate related dyspnea if he is have RVR on exertion discussed with Dr. Roy, he recommends outpatient PFT, sleep study and pulmonary follow up (3) Cardiomyopathy: change to Toprol 200mg daily continue Losartan certainly could have ischemic heart disease no need for urgent cath as there is no evidence of infarction renal function would need to be better prior to cath d/w Dr. Huang, no plans for inpatient left heart cath (4) Pulmonary hypertension: continue Amlodipine discuss with pulmonary certainly has several reasons for pulmonary hypertension most obvious would be left heart failure needs work up for COPD with PFT, needs sleep study to look into MARIANA (5) LBBB (left bundle branch block): troponin negative no chest pain/pressure likely chronic issue (6) CKD (chronic kidney disease): stage III/IV disease will follow BMP daily Cr is 1.99, repeat tomorrow (7) Type 2 diabetes mellitus: (8) Hypertension: Subjective patient feeling better, breathing easier HR is better controlled on the metoprolol, pulse consistently in the 80's at rest will need to see his HR on exertion discussed with Dr. Huang, no need for left heart cath at this time reviewed labs, Cr is 1.99 and K is 3.4 CBC is stable patient anxious to leave Review of Systems Review of Systems: All systems reviewed & are unremarkable except as noted in HPI & below Respiratory: + dyspnea on exertion; no cough and no dyspnea Cardiovascular: no chest pain and no edema Gastrointestinal: no abdominal pain, no nausea, no vomiting, no constipation and no diarrhea/loose stools Physical Exam Constitutional: WD/WN, vitals as above + obese; no acute distress Eyes: PERRL, conjunctivae normal, anicteric sclerae ENMT: external ear and nose normal, oropharynx normal Neck: trachea midline, no thyromegaly Respiratory: normal respiratory effort; no respiratory distress Auscultation: + diminished lung sounds; no crackles, no rhonchi and no wheezes Cardiovascular: Rate/Rhythm: regular rate and + irregularly irregular Heart Sounds: normal S1 and normal S2 Extremities: normal capillary refill; no edema Gastrointestinal (Abdomen): normal bowel sounds, soft, nontender, no hepatosplenomegaly Musculoskeletal: no cyanosis or clubbing, extremities motor strength 5/5 Skin: no rashes, warm and dry Neurologic: patellar DTR's 2+ bilat, sensation intact and PERRL, EOMI, accomm odation nl, no face palsy, no dysarthria Psychiatric: A+Ox3, euthymic affect Lymphatic: no cervical or axillary lymphadenopathy Results & Data Vital Signs (Past 12 Hours) Vital Signs Temp Pulse Pulse Resp BP BP Pulse Ox 12/10/19 07:42 87 12/10/19 07:39 36.4 C L 88 22 147/99 H 91 12/10/19 02:56 36.5 C 86 20 121/89 93 12/09/19 23:55 36.5 C 87 18 129/88 91 Laboratory Results Laboratory Results - last 24 hr 12/09/19 12/09/19 12/09/19 16:15 16:15 16:15 WBC 9.60 RBC 5.77 Hgb 17.7 Hct 49.6 MCV 86.0 MCH 30.7 MCHC 35.7 RDW Std Deviation 43.3 RDW Coeff of Liss 14.1 Plt Count 168 MPV 11.5 H Immature Gran % (Auto) 0.1 Neut % (Auto) 77.5 Lymph % (Auto) 14.2 Gray % (Auto) 7.7 Eos % (Auto) 0.4 Baso % (Auto) 0.1 Immature Gran # (Auto) 0.01 Neut # (Auto) 7.44 H Lymph # (Auto) 1.36 Gray # (Auto) 0.74 H Eos # (Auto) 0.04 Baso # (Auto) 0.01 APTT PTT Ratio Sodium 139 Potassium 3.5 Chloride 106 Carbon Dioxide 22 Anion Gap 11.0 BUN 21 H Creatinine 1.97 H Est Cr Clr Drug Dosing 47.5 Est GFR ( Amer) 39.9 Est GFR (Non-Af Amer) 34.4 BUN/Creatinine Ratio 10.5 Glucose 181 H POC Glucose Calcium 9.6 Magnesium Troponin I 0.033 NT-Pro-B Natriuret Pep Lipase 256 TSH 12/09/19 12/09/19 12/10/19 16:15 20:17 00:18 WBC RBC Hgb Hct MCV MCH MCHC RDW Std Deviation RDW Coeff of Liss Plt Count MPV Immature Gran % (Auto) Neut % (Auto) Lymph % (Auto) Gray % (Auto) Eos % (Auto) Baso % (Auto) Immature Gran # (Auto) Neut # (Auto) Lymph # (Auto) Gray # (Auto) Eos # (Auto) Baso # (Auto) APTT 32.2 H PTT Ratio 1.2 Sodium Potassium Chloride Carbon Dioxide Anion Gap BUN Creatinine Est Cr Clr Drug Dosing Est GFR ( Amer) Est GFR (Non-Af Amer) BUN/Creatinine Ratio Glucose POC Glucose 171 H Calcium Magnesium 2.0 Troponin I NT-Pro-B Natriuret Pep 5689 H Lipase TSH 1.680 12/10/19 12/10/19 12/10/19 07:15 07:54 07:54 WBC 7.52 RBC 5.73 Hgb 17.3 Hct 49.2 MCV 85.9 MCH 30.2 MCHC 35.2 RDW Std Deviation 43.7 RDW Coeff of Liss 14.3 Plt Count 141 MPV 11.2 H Immature Gran % (Auto) 0.1 Neut % (Auto) 67.2 Lymph % (Auto) 23.1 Gray % (Auto) 8.2 Eos % (Auto) 1.1 Baso % (Auto) 0.3 Immature Gran # (Auto) 0.01 Neut # (Auto) 5.05 Lymph # (Auto) 1.74 Gray # (Auto) 0.62 H Eos # (Auto) 0.08 Baso # (Auto) 0.02 APTT PTT Ratio Sodium 139 Potassium 3.4 L Chloride 105 Carbon Dioxide 25 Anion Gap 9.0 BUN 27 H Creatinine 1.99 H Est Cr Clr Drug Dosing 46.7 Est GFR ( Amer) 39.4 Est GFR (Non-Af Amer) 34.0 BUN/Creatinine Ratio 13.6 Glucose 141 H POC Glucose 137 H Calcium 9.4 Magnesium Troponin I NT-Pro-B Natriuret Pep Lipase TSH 12/10/19 07:54 WBC RBC Hgb Hct MCV MCH MCHC RDW Std Deviation RDW Coeff of Liss Plt Count MPV Immature Gran % (Auto) Neut % (Auto) Lymph % (Auto) Gray % (Auto) Eos % (Auto) Baso % (Auto) Immature Gran # (Auto) Neut # (Auto) Lymph # (Auto) Gray # (Auto) Eos # (Auto) Baso # (Auto) APTT 36.5 H PTT Ratio 1.3 Sodium Potassium Chloride Carbon Dioxide Anion Gap BUN Creatinine Est Cr Clr Drug Dosing Est GFR ( Amer) Est GFR (Non-Af Amer) BUN/Creatinine Ratio Glucose POC Glucose Calcium Magnesium Troponin I NT-Pro-B Natriuret Pep Lipase TSH Medications Administered Current Inpatient Medications Acetaminophen (Tylenol) 650 mg PO Q4H PRN PRN Reason: Pain or Fever Stop: 01/08/20 18:35 Amlodipine Besylate (Norvasc) 5 mg PO BID [facility] Stop: 01/08/20 20:59 Last Admin: 12/10/19 08:41 Dose: 5 mg Documented by: Aspirin (Ecotrin Ectab) 81 mg PO DAILY [facility] Stop: 01/09/20 08:59 Last Admin: 12/10/19 08:41 Dose: 81 mg Documented by: Dextrose (Dextrose 50%) 25 - 50 ml IV UD PRN; Protocol PRN Reason: Hypoglycemia Protocol Stop: 01/08/20 20:53 Glucagon (Glucagen) 1 mg SQ UD PRN; Protocol PRN Reason: Hypoglycemia Protocol Stop: 01/08/20 20:53 Glucose (Dex4 Glucose) 4 - 8 tabs PO UD PRN; Protocol PRN Reason: Hypoglycemia Protocol Stop: 01/08/20 20:53 Glucose (Glucose 40%) 15 - 30 gm PO UD PRN; Protocol PRN Reason: Hypoglycemia Protocol Stop: 01/08/20 20:53 Heparin Sodium/Dextrose (Heparin Sodium/Dextrose) 25,000 units in 500 mls @ 28 mls/hr IV .[id number] [facility]; Protocol Stop: 01/08/20 16:44 Last Titration: 12/10/19 08:42 Dose: 1,400 units/hr, 28 mls/hr Documented by: Insulin Aspart (Novolog Flexpen) 0 units SC ACHS [facility] Stop: 01/08/20 20:59 Last Admin: 12/10/19 08:40 Dose: 1 units Documented by: Metoprolol Succinate (Toprol Xl) 200 mg PO QAM [facility] Stop: 01/09/20 08:59 Last Admin: 12/10/19 10:11 Dose: Not Given Documented by: Metoprolol Tartrate (Lopressor) 100 mg PO BID [facility] Stop: 01/08/20 20:59 Last Admin: 12/10/19 08:41 Dose: 100 mg Documented by: Miscellaneous (Carbohydrates For Hypoglycemia) 15 - 30 gm PO UD PRN PRN Reason: Hypoglycemia Protocol Stop: 01/08/20 20:53 Ondansetron HCl (Zofran) 4 mg IV Q6H PRN PRN Reason: Nausea Stop: 01/08/20 18:35 PG Care Time/CCT Total # of Minutes Spent Total Time Spent with Patient: Total time spent is greater than 50% in coordination of care (as documented) at patient's floor/unit and/or counseling patient: Coding Level of Care Code 50454 Subseq Obs Care Lvl 3 Diagnoses Atrial fibrillation I48.91 Shortness of breath R06.02 Cardiomyopathy I42.9 Pulmonary hypertension I27.20 LBBB (left bundle branch block) I44.7 CKD (chronic kidney disease) N18.9 Type 2 diabetes mellitus E11.9 Hypertension I10
--- NOTE | 2019-12-10 13:01 | Cardiology Progress Note ---
Date of Service December 10, 2019 Assessment & Plan (1) Atrial fibrillation: (2) Cardiomyopathy: (3) Pulmonary hypertension: (4) LBBB (left bundle branch block): (5) Shortness of breath: (6) Hypertension: (7) Tricuspid regurgitation: (8) CKD (chronic kidney disease): ASSESSMENT/PLAN: 1. Atrial fibrillation: Doing well on beta-blockade. No sense of palpitations. Rate seems reasonable. He is on heparin infusion will need to be transitioned to an oral anticoagulant. This could be accomplished as an outpatient. 2. Cardiomyopathy: Etiology uncertain. No current symptoms suggestive of coronary insufficiency or angina. Will likely need some form of an invasive evaluation. However, this can be deferred in the absence of an acute coronary syndrome especially in the setting of his renal dysfunction. We will initiate standard medical therapy with beta blockade. Tartrate was switched to metoprolol succinate. Defer Evan inhibition currently due to renal dysfunction. He likely has an element of pulmonary vascular congestion as well. He would likely benefit from a dose of diuretic. This may actually improve some renal function. 3. LBBB: Also consistent with his cardiomyopathy. He may be a candidate for cardiac resynchronization therapy at some point. 4. Pulmonary hypertension: Etiology uncertain. Likely combination of primary lung disease and cardiac dysfunction. 5. Tricuspid regurgitation: Appeared moderate. Follow over time. 6. Hypertension: Blood pressure appears well controlled currently. 7. CKD: No significant twisting frame changer the past 24 hours. Perhaps this represents a new baseline. Subjective This morning the patient claims to be feeling much better. He states his breathing is significantly improved. He was ambulatory around his room without limiting dyspnea. He did not report any symptoms of chest discomfort. No dizziness or lightheadedness. No sense of palpitation. Review of Systems Review of Systems: Per HPI Physical Exam Physical Exam: Gen.: No acute distress. Alert and oriented. HEENT: Anicteric sclera. Neck: No appreciable JVD, but thick neck. No bruits. Normal carotid upstrokes bilaterally. Cardiac: PMI was nondisplaced. No ventricular heave. Irregularly irregular. Normal S1-S2. No murmurs, rubs, or gallops. Pulmonary: Occasional crackle in the bases bilaterally. No expiratory wheezing. Normal respiratory effort. Abdomen: Soft, nontender, nondistended, with normoactive bowel sounds. No bruits noted. Extremities: 2+ radial pulses bilaterally. 2+ posterior tibialis pulses bilaterally. No edema or cyanosis. No palpable cords. Psychiatric: Affect appears appropriate. Results & Data Vital Signs (Past 12 Hours) Vital Signs Temp Pulse Pulse Pulse Resp BP BP 12/10/19 11:20 37.0 C 82 17 136/87 12/10/19 07:42 87 12/10/19 07:39 36.4 C L 88 22 147/99 H 12/10/19 02:56 36.5 C 86 20 121/89 Pulse Ox 12/10/19 11:20 95 12/10/19 07:42 12/10/19 07:39 91 12/10/19 02:56 93 Laboratory Results Abnormal Lab Results 12/09/19 12/09/19 12/09/19 16:15 16:15 16:15 WBC 9.60 RBC 5.77 Hgb 17.7 Hct 49.6 MCV 86.0 MCH 30.7 MCHC 35.7 RDW Std Deviation 43.3 RDW Coeff of Liss 14.1 Plt Count 168 MPV 11.5 H Immature Gran % (Auto) 0.1 Neut % (Auto) 77.5 Lymph % (Auto) 14.2 [place] % (Auto) 7.7 Eos % (Auto) 0.4 Baso % (Auto) 0.1 Immature Gran # (Auto) 0.01 Neut # (Auto) 7.44 H Lymph # (Auto) 1.36 [place] # (Auto) 0.74 H Eos # (Auto) 0.04 Baso # (Auto) 0.01 APTT PTT Ratio Sodium 139 Potassium 3.5 Chloride 106 Carbon Dioxide 22 Anion Gap 11.0 BUN 21 H Creatinine 1.97 H Est Cr Clr Drug Dosing 47.5 Est GFR ( Amer) 39.9 Est GFR (Non-Af Amer) 34.4 BUN/Creatinine Ratio 10.5 Glucose 181 H POC Glucose Calcium 9.6 Magnesium Troponin I 0.033 NT-Pro-B Natriuret Pep Lipase 256 TSH 12/09/19 12/09/19 12/10/19 16:15 20:17 00:18 WBC RBC Hgb Hct MCV MCH MCHC RDW Std Deviation RDW Coeff of Liss Plt Count MPV Immature Gran % (Auto) Neut % (Auto) Lymph % (Auto) [place] % (Auto) Eos % (Auto) Baso % (Auto) Immature Gran # (Auto) Neut # (Auto) Lymph # (Auto) [place] # (Auto) Eos # (Auto) Baso # (Auto) APTT 32.2 H PTT Ratio 1.2 Sodium Potassium Chloride Carbon Dioxide Anion Gap BUN Creatinine Est Cr Clr Drug Dosing Est GFR ( Amer) Est GFR (Non-Af Amer) BUN/Creatinine Ratio Glucose POC Glucose 171 H Calcium Magnesium 2.0 Troponin I NT-Pro-B Natriuret Pep 5689 H Lipase TSH 1.680 12/10/19 12/10/19 12/10/19 07:15 07:54 07:54 WBC 7.52 RBC 5.73 Hgb 17.3 Hct 49.2 MCV 85.9 MCH 30.2 MCHC 35.2 RDW Std Deviation 43.7 RDW Coeff of Liss 14.3 Plt Count 141 MPV 11.2 H Immature Gran % (Auto) 0.1 Neut % (Auto) 67.2 Lymph % (Auto) 23.1 [place] % (Auto) 8.2 Eos % (Auto) 1.1 Baso % (Auto) 0.3 Immature Gran # (Auto) 0.01 Neut # (Auto) 5.05 Lymph # (Auto) 1.74 [place] # (Auto) 0.62 H Eos # (Auto) 0.08 Baso # (Auto) 0.02 APTT PTT Ratio Sodium 139 Potassium 3.4 L Chloride 105 Carbon Dioxide 25 Anion Gap 9.0 BUN 27 H Creatinine 1.99 H Est Cr Clr Drug Dosing 46.7 Est GFR ( Amer) 39.4 Est GFR (Non-Af Amer) 34.0 BUN/Creatinine Ratio 13.6 Glucose 141 H POC Glucose 137 H Calcium 9.4 Magnesium Troponin I NT-Pro-B Natriuret Pep Lipase TSH 12/10/19 12/10/19 07:54 11:54 WBC RBC Hgb Hct MCV MCH MCHC RDW Std Deviation RDW Coeff of Liss Plt Count MPV Immature Gran % (Auto) Neut % (Auto) Lymph % (Auto) [place] % (Auto) Eos % (Auto) Baso % (Auto) Immature Gran # (Auto) Neut # (Auto) Lymph # (Auto) [place] # (Auto) Eos # (Auto) Baso # (Auto) APTT 36.5 H PTT Ratio 1.3 Sodium Potassium Chloride Carbon Dioxide Anion Gap BUN Creatinine Est Cr Clr Drug Dosing Est GFR ( Amer) Est GFR (Non-Af Amer) BUN/Creatinine Ratio Glucose POC Glucose 146 H Calcium Magnesium Troponin I NT-Pro-B Natriuret Pep Lipase TSH PG Care Time/CCT Total # of Minutes Spent Total Time Spent with Patient: Total time spent is greater than 50% in coordination of care (as documented) at patient's floor/unit and/or counseling patient: Coding Level of Care Code 11112 Subseq Obs Care Lvl 3 Diagnoses Atrial fibrillation I48.91 Cardiomyopathy I42.9 Pulmonary hypertension I27.20 LBBB (left bundle branch block) I44.7 Shortness of breath R06.02 Hypertension I10 Tricuspid regurgitation I07.1 CKD (chronic kidney disease) N18.9
[2019-12-10] MEDS: HEPARIN SODIUM/DEXTROSE 25,000 UNITS/500 ML BAG IV SCH (15:20)
[2019-12-10 15:23] LABS: Partial Thromboplastin Ratio 1.5; Partial Thromboplastin Time 41.6 Seconds (21.0-31.0)
[2019-12-10] MEDS ORDERED: HEPARIN IV BOLUS 4,000 UNITS in SYRINGE 0 ML IV ONE (15:45)
--- NOTE | 2019-12-10 20:15 | Electrocardiogram Report ---
Test Reason : Blood Pressure : / mmHG Vent. Rate : 086 BPM Atrial Rate : 085 BPM P-R Int : 000 ms QRS Dur : 166 ms QT Int : 434 ms P-R-T Axes : 000 -22 142 degrees QTc Int : 519 ms Atrial fibrillation Left bundle branch block Abnormal ECG When compared with ECG of 09-DEC-2019 15:56, QT has lengthened Confirmed by Morgan Huang ([id number]) on 12/10/2019 8:15:39 PM Referred By: REFERRED SELF Confirmed By:Venkat Huang
[2019-12-10 22:11] LABS: Partial Thromboplastin Ratio 1.8
[2019-12-10 22:14] LABS: Partial Thromboplastin Time 49.3 Seconds (21.0-31.0)
[2019-12-11 05:29] LABS: Hematocrit (blood only) 50.7 % (42-52); Mean Corpuscular Hemoglobin 30.8 pg (25-34); Mean Corpuscular Hgb Conc 35.5 g/dL (32-36); Mean Corpuscular Volume 86.7 fL (80-100); Mean Platelet Volume 11.7 fL (7.4-10.4); Platelet Count 153 K/uL (130-400); RDW Coefficient of Variation 14.2 % (11.5-14.5); RDW Standard Deviation 44.8 fL (36.4-46.3); Red Blood Count 5.85 M/uL (4.7-6.1); White Blood Count 8.52 K/uL (4.8-10.8)
[2019-12-11 05:39] LABS: Partial Thromboplastin Ratio 1.3; Partial Thromboplastin Time 35.1 Seconds (21.0-31.0)
[2019-12-11 05:48] LABS: BUN Creatinine Ratio 17.9 (10-20); Calcium 9.4 mg/dl (8.5-10.1); Creatinine Clr Calc Pharmacy 52.3 ml/min; Est GFR (African American) 45.1; Est GFR (Non-African American) 38.9; Potassium 3.6 mmol/L (3.5-5.1)
[2019-12-11 05:53] LABS: Prostate Specific Antigen 1.46 ng/ml (0-4)
[2019-12-11] MEDS ORDERED: HEPARIN IV BOLUS 4,500 UNITS in SYRINGE 0 ML IV ONE (07:45)
[2019-12-11] MEDS: HEPARIN SODIUM/DEXTROSE 25,000 UNITS/500 ML BAG IV SCH ×2 (08:45→23:41)
[2019-12-11] MEDS: INSULIN ASPART 100 UNITS/ML 3 ML PEN SC SCH ×4 (08:46→20:28)
[2019-12-11] MEDS: AMLODIPINE BESYLATE 5 MG TAB PO SCH ×2 (08:48→20:27)
[2019-12-11] MEDS: METOPROLOL SUCC 50MG EXT REL TAB PO SCH (08:48)
[2019-12-11] MEDS: ASPIRIN 81 MG ECTAB PO SCH (08:48)
--- NOTE | 2019-12-11 09:38 | Cardiology Progress Note ---
Date of Service December 11, 2019 Assessment & Plan (1) Atrial fibrillation: (2) Cardiomyopathy: (3) Pulmonary hypertension: (4) LBBB (left bundle branch block): (5) Shortness of breath: (6) Hypertension: (7) Tricuspid regurgitation: (8) CKD (chronic kidney disease): ASSESSMENT/PLAN: 1. Atrial fibrillation: Doing well on beta-blockade. No sense of palpitations. Seems to have good rate control on his current dose. I reviewed a switch to an oral anticoagulant. Given his degree of renal dysfunction Eliquis sounds most attractive. His renal function did improve today and Xarelto could also be considered. 2. Cardiomyopathy: He seems much better compensated after diuresis. He has been started on metoprolol succinate. He likely will require an invasive evaluation at some point to exclude coronary disease. I think we could also defer initiation of Evan inhibition until his renal function could be evaluated in the outpatient setting. Pulmonary exam is much improved today. Symptoms have also resolved. 3. LBBB: Also consistent with his cardiomyopathy. He may be a candidate for cardiac resynchronization therapy at some point. 4. Pulmonary hypertension: Etiology uncertain. Likely combination of primary lung disease and cardiac dysfunction. 5. Tricuspid regurgitation: Appeared moderate. Follow over time. 6. Hypertension: Blood pressure appears well controlled currently. 7. CKD: Improved today. I think this can be monitored in the outpatient settin g. The timing of cardiac catheterization and initiation of Evan inhibition can be deferred to the outpatient setting. Subjective This more the patient reports feeling much better. He denies significant breathing difficulty. He has been ambulatory around the room without significant limitation. No symptoms of dizziness, lightheadedness or palp itation. Review of Systems Review of Systems: Per HPI Physical Exam Physical Exam: The patient is alert and oriented. Mood and affect appeared normal. He answered all questions appropriately. HEENT: Pupils are equal and reactive to light and accommodation. Extraocular movements are intact. The sclerae are anicteric. Neuro: Cranial nerves intact Lungs: Essentially clear. Rare crackle in the base bilaterally. No expiratory wheezing. Normal respiratory effort. Cardiac: Heart demonstrates an irregular rate and rhythm. Normal S1 and S2. No murmurs on examination. Pulses: The patient has palpable radial pulses bilaterally that are equal in intensity Extremities: There was no evidence of hypoperfusion. There is no cyanosis or clubbing. Skin: I did not appreciate any rashes on examination today. Results & Data Vital Signs (Past 12 Hours) Vital Signs Temp Pulse Resp BP Pulse Ox 12/11/19 07:00 36.6 C 89 20 131/92 96 12/11/19 03:55 36.7 C 87 20 131/92 98 12/10/19 23:49 36.6 C 85 20 143/96 H 95 Laboratory Results Abnormal Lab Results 12/10/19 12/10/19 12/10/19 11:54 15:02 16:22 WBC RBC Hgb Hct MCV MCH MCHC RDW Std Deviation RDW Coeff of Liss Plt Count MPV APTT 41.6 H PTT Ratio 1.5 Sodium Potassium Chloride Carbon Dioxide Anion Gap BUN Creatinine Est Cr Clr Drug Dosing Est GFR ( Amer) Est GFR (Non-Af Amer) BUN/Creatinine Ratio Glucose POC Glucose 146 H 119 H Calcium Prostate Specific Ag 12/10/19 12/10/19 12/11/19 20:03 21:44 05:17 WBC 8.52 RBC 5.85 Hgb 18.0 Hct 50.7 MCV 86.7 MCH 30.8 MCHC 35.5 RDW Std Deviation 44.8 RDW Coeff of Liss 14.2 Plt Count 153 MPV 11.7 H APTT 49.3 H* PTT Ratio 1.8 Sodium Potassium Chloride Carbon Dioxide Anion Gap BUN Creatinine Est Cr Clr Drug Dosing Est GFR ( Amer) Est GFR (Non-Af Amer) BUN/Creatinine Ratio Glucose POC Glucose 163 H Calcium Prostate Specific Ag 12/11/19 12/11/19 12/11/19 05:17 05:17 07:19 WBC RBC Hgb Hct MCV MCH MCHC RDW Std Deviation RDW Coeff of Liss Plt Count MPV APTT 35.1 H PTT Ratio 1.3 Sodium 138 Potassium 3.6 Chloride 106 Carbon Dioxide 26 Anion Gap 6.0 BUN 32 H Creatinine 1.78 H Est Cr Clr Drug Dosing 52.3 Est GFR ( Amer) 45.1 Est GFR (Non-Af Amer) 38.9 BUN/Creatinine Ratio 17.9 Glucose 156 H POC Glucose 157 H Calcium 9.4 Prostate Specific Ag 1.460 PG Care Time/CCT Total # of Minutes Spent Total Time Spent with Patient: Total time spent is greater than 50% in coordination of care (as documented) at patient's floor/unit and/or counseling patient: Coding Level of Care Code 68771 Subseq Hosp Care Lvl 3 Diagnoses Atrial fibrillation I48.91 Cardiomyopathy I42.9 Pulmonary hypertension I27.20 LBBB (left bundle branch block) I44.7 Shortness of breath R06.02 Hypertension I10 Tricuspid regurgitation I07.1 CKD (chronic kidney disease) N18.9
[2019-12-11] MEDS ORDERED: WARFARIN SOD 10 MG TAB PO ONE (10:47)
[2019-12-11] MEDS: lisinopriL 5 MG TAB PO SCH (12:51)
--- NOTE | 2019-12-11 14:14 | Hospitalist Progress Note ---
Date of Service December 11, 2019 Assessment & Plan (1) Atrial fibrillation: new diagnosis, rate is well controlled at rest on Toprol 200mg went up to 116 with activity today which is acceptable heparin drip for initial anticoagulation because renal function prohibits Lovenox patient does not have insurance, NOAC would be too expensive start Coumadin 10mg daily, check INR ideally could use Lovenox bridge but likely Lovenox would be a few hundred dollars will need close follow up with cardiology likely a referral to coagulation clinic would be appropriate (2) Shortness of breath: chief complaint, ongoing for about a year, slowly getting worse over 6 months then really bad the past month likely multifactorial could have undiagnosed lung disease as he was a smoker up until 15 years ago has severe pulmonary hypertension which is also contributing could be rate related dyspnea if he is have RVR on exertion discussed with Dr. Roy, he recommends outpatient PFT, sleep study and pulmonary follow up [place] [facility] [place] to help set up PFT, sleep study and pulm visit also, ordered nocturnal desaturation study tonight and morning ABG to see if he would qualify for nocturnal oxygen in the meantime 2 step done today, no oxygen required at rest or on exertion (3) Cardiomyopathy: continue Toprol 200mg daily Losartan stopped start on Lisinopril 5mg daily certainly could have ischemic heart disease no need for urgent cath as there is no evidence of infarction renal function would need to be better prior to cath d/w Dr. Huang, no plans for inpatient left heart cath EF is 30-35%, global hypokinesis will need close follow up with cardiology after discharge no signs of volume overload, no edema, lungs clear, did not require Lasix during admission (4) Pulmonary hypertension: continue Amlodipine discussed with pulmonary certainly has several reasons for pulmonary hypertension most obvious would be left heart failure needs work up for COPD with PFT, needs sleep study to look into MARIANA (5) LBBB (left bundle branch block): troponin negative no chest pain/pressure likely chronic issue (6) CKD (chronic kidney disease): stage III/IV disease will follow BMP daily Cr is 1.78, repeat tomorrow (7) Type 2 diabetes mellitus: was prescribed Metformin, would not use this with CKD checking HbA1c at this time, due to complex issues with breathing and heart, would just recommend diet control certainly if his A1c is extremely high then another approach would be warranted sugars here have been stable (8) Hypertension: BP well controlled on Norvasc 5mg BID, Toprol 200mg daily and Lisinopril 5mg the Toprol and Lisinopril are new medications Plan: keep the patient again today to monitor HR response to Toprol nocturnal desaturation study tonight will need Coumadin on discharge and referral to coagulation clinic will need PFT and sleep study referrals and pulm follow up will need cardiology follow up can likely go home tomorrow, patient is anxious to leave no Medicare or other insurance, ask CM to help him with Medicare paperwork new meds are Toprol, Lisinopril, Coumadin should stop Losartan, Lopressor, Metformin Subjective patient continues to report that he is feeling better, however he gets winded just talking with me no hypoxia, had respiratory perform 2 step, no oxygen needed HR better while at rest on the Toprol 200mg, in the 80's he said that the RN placed oxygen on him last night for some desaturations, he slept well with the oxygen discussed the need to arrange for a lot of testing after discharge he has no insurance, we discussed NOAC but there is no way he could afford it will start Coumadin today 10mg Cr is 1.7 today, CBC stable PSA normal (he was c/o LUTS) HbA1c pending due to the weekend Review of Systems Review of Systems: All systems reviewed & are unremarkable except as noted in HPI & below Respiratory: + dyspnea and + dyspnea on exertion Cardiovascular: no chest pain and no edema Gastrointestinal: no abdominal pain, no nausea, no vomiting, no constipation and no diarrhea/loose stools Physical Exam Constitutional: WD/WN, vitals as above + obese; no acute distress Eyes: PERRL, conjunctivae normal, anicteric sclerae ENMT: external ear and nose normal, oropharynx normal Neck: trachea midline, no thyromegaly Respiratory: normal respiratory effort; no respiratory distress Auscultation: + diminished lung sounds; no crackles, no rhonchi and no wheezes Cardiovascular: Rate/Rhythm: regular rate and + irregularly irregular Heart Sounds: normal S1 and normal S2 Extremities: normal capillary refill; no edema Gastrointestinal (Abdomen): normal bowel sounds, soft, nontender, no hepatosplenomegaly Musculoskeletal: no cyanosis or clubbing, extremities motor strength 5/5 Skin: no rashes, warm and dry Neurologic: patellar DTR's 2+ bilat, sensation intact and PERRL, EOMI, accommodation nl, no face palsy, no dysarthria Psychiatric: A+Ox3, euthymic affect Lymphatic: no cervical or axillary lymphadenopathy Results & Data Vital Signs (Past 12 Hours) Vital Signs Temp Pulse Pulse Pulse Pulse Resp Resp 12/11/19 12:53 12/11/19 11:55 116 H 85 77 26 H 12/11/19 11:35 36.6 C 97 H 20 12/11/19 07:00 36.6 C 89 20 12/11/19 03:55 36.7 C 87 20 Resp Resp BP BP Pulse Ox Pulse Ox Pulse Ox 12/11/19 12:53 125/88 12/11/19 11:55 20 14 93 94 12/11/19 11:35 134/94 93 12/11/19 07:00 131/92 96 12/11/19 03:55 131/92 98 Pulse Ox 12/11/19 12:53 12/11/19 11:55 98 12/11/19 11:35 12/11/19 07:00 12/11/19 03:55 Laboratory Results Laboratory Results - last 24 hr 12/10/19 12/10/19 12/10/19 15:02 16:22 20:03 WBC RBC Hgb Hct MCV MCH MCHC RDW Std Deviation RDW Coeff of Liss Plt Count MPV APTT 41.6 H PTT Ratio 1.5 Sodium Potassium Chloride Carbon Dioxide Anion Gap BUN Creatinine Est Cr Clr Drug Dosing Est GFR ( Amer) Est GFR (Non-Af Amer) BUN/Creatinine Ratio Glucose POC Glucose 119 H 163 H Estimat Average Glucose Hemoglobin A1c Calcium Prostate Specific Ag 12/10/19 12/11/19 12/11/19 21:44 05:17 05:17 WBC 8.52 RBC 5.85 Hgb 18.0 Hct 50.7 MCV 86.7 MCH 30.8 MCHC 35.5 RDW Std Deviation 44.8 RDW Coeff of Liss 14.2 Plt Count 153 MPV 11.7 H APTT 49.3 H* PTT Ratio 1.8 Sodium 138 Potassium 3.6 Chloride 106 Carbon Dioxide 26 Anion Gap 6.0 BUN 32 H Creatinine 1.78 H Est Cr Clr Drug Dosing 52.3 Est GFR ( Amer) 45.1 Est GFR (Non-Af Amer) 38.9 BUN/Creatinine Ratio 17.9 Glucose 156 H POC Glucose Estimat Average Glucose Hemoglobin A1c Calcium 9.4 Prostate Specific Ag 1.460 12/11/19 12/11/19 12/11/19 05:17 05:17 07:19 WBC RBC Hgb Hct MCV MCH MCHC RDW Std Deviation RDW Coeff of Liss Plt Count MPV APTT 35.1 H PTT Ratio 1.3 Sodium Potassium Chloride Carbon Dioxide Anion Gap BUN Creatinine Est Cr Clr Drug Dosing Est GFR ( Amer) Est GFR (Non-Af Amer) BUN/Creatinine Ratio Glucose POC Glucose 157 H Estimat Average Glucose Pending Hemoglobin A1c Pending Calcium Prostate Specific Ag 12/11/19 11:30 WBC RBC Hgb Hct MCV MCH MCHC RDW Std Deviation RDW Coeff of Liss Plt Count MPV APTT PTT Ratio Sodium Potassium Chloride Carbon Dioxide Anion Gap BUN Creatinine Est Cr Clr Drug Dosing Est GFR ( Amer) Est GFR (Non-Af Amer) BUN/Creatinine Ratio Glucose POC Glucose 193 H Estimat Average Glucose Hemoglobin A1c Calcium Prostate Specific Ag Medications Administered Current Inpatient Medications Acetaminophen (Tylenol) 650 mg PO Q4H PRN PRN Reason: Pain or Fever Stop: 01/08/20 18:35 Amlodipine Besylate (Norvasc) 5 mg PO BID YESSENIA Stop: 01/08/20 20:59 Last Admin: 12/11/19 08:48 Dose: 5 mg Documented by: Aspirin (Ecotrin Ectab) 81 mg PO DAILY YESSENIA Stop: 01/09/20 08:59 Last Admin: 12/11/19 08:48 Dose: 81 mg Documented by: Dextrose (Dextrose 50%) 25 - 50 ml IV UD PRN; Protocol PRN Reason: Hypoglycemia Protocol Stop: 01/08/20 20:53 Glucagon (Glucagen) 1 mg SQ UD PRN; Protocol PRN Reason: Hypoglycemia Protocol Stop: 01/08/20 20:53 Glucose (Dex4 Glucose) 4 - 8 tabs PO UD PRN; Protocol PRN Reason: Hypoglycemia Protocol Stop: 01/08/20 20:53 Glucose (Glucose 40%) 15 - 30 gm PO UD PRN; Protocol PRN Reason: Hypoglycemia Protocol Stop: 01/08/20 20:53 Heparin Sodium/Dextrose (Heparin Sodium/Dextrose) 25,000 units in 500 mls @ 34 mls/hr IV .[id number] [facility]; Protocol Stop: 01/08/20 16:44 Last Admin: 12/11/19 08:45 Dose: 1,700 units/hr, 34 mls/hr Documented by: Insulin Aspart (Novolog Flexpen) 0 units SC ACHS [facility] Stop: 01/08/20 20:59 Last Admin: 12/11/19 12:01 Dose: 5 units Documented by: [facility]op[facility]est[facility]) [facility] Stop: 01/10/20 10:59 Last Admin: 12/11/19 12:51 Dose: 5 mg Documented by: Metoprolol Succinate (Toprol Xl) 200 [facility] [place] Stop: 01/09/20 08:59 Last Admin: 12/11/19 08:48 Dose: 200 mg Documented by: Miscellaneous (Carbohydrates For Hypoglycemia) 15 - 30 gm PO UD PRN PRN Reason: Hypoglycemia Protocol Stop: 01/08/20 20:53 Ondansetron HCl (Zofran) 4 mg IV Q6H PRN PRN Reason: Nausea Stop: 01/08/20 18:35 PG Care Time/CCT Total # of Minutes Spent Total Time Spent: 40 Total Time Spent with Patient: Total time spent is greater than 50% in coordination of care (as documented) at patient's floor/unit and/or counseling patient: Coding Level of Care Code 55275 Subseq Hosp Care Lvl 3 Diagnoses Atrial fibrillation I48.91 Shortness of breath R06.02 Cardiomyopathy I42.9 Pulmonary hypertension I27.20 LBBB (left bundle branch block) I44.7 CKD (chronic kidney disease) N18.9 Type 2 diabetes mellitus E11.9 Hypertension I10
[2019-12-11 15:19] LABS: Partial Thromboplastin Ratio 2.1
[2019-12-11 15:29] LABS: Partial Thromboplastin Time 55.7 Seconds (21.0-31.0)
--- NOTE | 2019-12-11 18:13 | Electrocardiogram Report ---
Test Reason : Blood Pressure : / mmHG Vent. Rate : 090 BPM Atrial Rate : 088 BPM P-R Int : 000 ms QRS Dur : 160 ms QT Int : 426 ms P-R-T Axes : 000 -20 132 degrees QTc Int : 521 ms Atrial fibrillation Left bundle branch block Abnormal ECG When compared with ECG of 10-DEC-2019 06:43, No significant change was found Confirmed by Morgan Huang ([id number] on 12/11/2019 6:13:13 PM Referred By: REFERRED SELF Confirmed By:Venkat Huang
[2019-12-12 06:13] LABS: Estimated Average Glucose 212 mg/dl
[2019-12-12 08:37] LABS: Base Excess ABG 0.4 mEq/L (-9-1.8); HCO3 ABG 23 mmol/L (19-24); Oxygen Saturation ABG 96.1 % (90-95); PCO2 ABG 31 mmHg (35-46); PO2 ABG 75 mmHg (80-95); pH ABG 7.48 (7.35-7.45)
[2019-12-12 08:38] LABS: Allen Test Pos (Pos)
[2019-12-12 08:51] LABS: INR 1.4 (0.9-1.1); Prothrombin Time 13.8 Seconds (9.0-12.0)
[2019-12-12] MEDS: INSULIN ASPART 100 UNITS/ML 3 ML PEN SC SCH ×4 (09:20→20:48)
[2019-12-12] MEDS: AMLODIPINE BESYLATE 5 MG TAB PO SCH ×2 (09:21→20:48)
[2019-12-12] MEDS: lisinopriL 5 MG TAB PO SCH (09:22)
[2019-12-12] MEDS: METOPROLOL SUCC 50MG EXT REL TAB PO SCH (09:23)
[2019-12-12] MEDS: ASPIRIN 81 MG ECTAB PO SCH (09:23)
--- NOTE | 2019-12-12 09:40 | Cardiology Progress Note ---
Date of Service December 12, 2019 Assessment & Plan (1) Atrial fibrillation: (2) Left bundle branch block (LBBB): (3) CKD (chronic kidney disease): (4) Tricuspid regurgitation: (5) Shortness of breath: (6) Cardiomyopathy: (7) Pulmonary hypertension: (8) Hypertension: ASSESSMENT/PLAN: 1. Atrial fibrillation: Heart rate adequately controlled. Continue metoprolol succinate 200 mg daily. This may or may not have been contributing to his symptoms of shortness of breath. Elevated chads Vasc score. Continue outpatient anticoagulation for stroke risk reduction. Hospitalist service has chosen warfarin. If financially an option, could consider Eliquis. 2. Cardiomyopathy: Etiology uncertain. He does have significant QRS widening with his left bundle branch block. He has multiple risk factors for coronary disease including prior tobacco abuse, diabetes, and hypertension. We discussed potential ischemic evaluation but there is no urgent indication at this time. He prefers to have this done as an outpatient in the future. Continue metoprolol succinate. Continue CHARITO-inhibitor, which was started during this hospitalization in place of losartan. His exam is difficult to determine volume status. Will attempt 1 dose of Lasix 40 mg IV x1 to see if it improves his breathing. Monitor electrolytes and renal function. We discussed importance of low-sodium diet. 3. LBBB: New diagnosis for him but his most recent ECG to compare to was from 2006. No acute symptoms to suggest acute infarct. 4. Pulmonary hypertension: Etiology uncertain. No acute symptoms to suggest PE and he will be anticoagulated for atrial fibrillation. If cardiac catheterization is performed, would consider right heart catheterization as well. Does have Tobacco history. 5. Tricuspid regurgitation: Appeared moderate. Follow over time. 6. Hypertension: Blood pressure mostly normal but at times mildly hypertensive. He has had several adjustments as noted above. 7. CKD: Monitor over time. 8. Shortness of breath: Could be due to underlying pulmonary issues. Cannot rule out some degree of hypervolemia however difficult exam. One dose of Lasix as above. Pulmonology evaluation is being arranged by the primary hospitalist service. He feels much better on supplemental oxygen. 9. Disposition: Recommended cardiology follow-up on discharge in approximately 2 weeks. He is asking to go home today. Plan of care discussed with Dr. Win the primary hospitalist service. Subjective He states that he feels much better. He is now on oxygen and feels much better while on supplemental oxygen. He denies shortness of breath, chest pain, syncope, near-syncope, palpitations, or edema. He wants to go home. He does not want to undergo cardiac catheterization while hospitalized. Review of systems: As above. Physical Exam Physical Exam: Gen.: No acute distress. Alert and oriented. HEENT: Anicteric sclera. Neck: No appreciable JVD, but thick neck. Cardiac: No ventricular heave. Irregularly irregular. Normal S1-S2. No murmurs, rubs, or gallops. Pulmonary: Clear to auscultation bilaterally without wheezes, rales, or rhonchi. Abdomen: Soft, nontender, nondistended, with normoactive bowel sounds. No bruits noted. Extremities: 2+ radial pulses bilaterally. 2+ posterior tibialis pulses bilaterally. No edema or cyanosis. No palpable cords. Psychiatric: Affect appears appropriate. Results & Data Vital Signs (Past 12 Hours) Vital Signs Temp Pulse Pulse Resp BP BP Pulse Ox 12/12/19 07:13 36.5 C 86 22 146/104 H 96 12/12/19 04:00 36.3 C L 78 22 143/88 H 99 12/12/19 01:35 81 12/11/19 23:48 36.4 C L 92 H 22 139/77 97 12/11/19 21:35 90 Pulse Ox 12/12/19 07:13 12/12/19 04:00 12/12/19 01:35 94 12/11/19 23:48 12/11/19 21:35 95 Intake & Output 12/10/19 12/11/19 12/12/19 12/13/19 06:59 06:59 06:59 06:59 Intake Total 1087.000 / 5707.614 9835.133 / 9385.490 6735.867 / 1672.867 260.667 / 260.667 Output Total 275 / 275 700 / 700 850 / 850 Balance 812.000 / 812.000 920.133 / 920.133 822.867 / 822.867 260.667 / 260.667 Weight 113.3 kg 114.6 kg 114.9 kg Laboratory Results Laboratory Results - last 24 hr 12/11/19 12/11/19 12/11/19 05:17 11:30 14:52 PT INR APTT 55.7 H* PTT Ratio 2.1 ABG pH ABG pCO2 ABG pO2 ABG HCO3 ABG O2 Saturation ABG Base Excess Micah Test Barometric Pressure Oxygen Given POC Glucose 193 H Estimat Average Glucose 212 Hemoglobin A1c 9.0 H 12/11/19 12/11/19 12/12/19 16:01 20:08 07:29 PT INR APTT PTT Ratio ABG pH ABG pCO2 ABG pO2 ABG HCO3 ABG O2 Saturation ABG Base Excess Micah Test Barometric Pressure Oxygen Given POC Glucose 132 H 139 H 142 H Estimat Average Glucose Hemoglobin A1c 12/12/19 12/12/19 08:22 08:22 PT 13.8 H INR 1.4 H APTT PTT Ratio ABG pH 7.48 H ABG pCO2 31 L ABG pO2 75 L ABG HCO3 23 ABG O2 Saturation 96.1 H ABG Base Excess 0.4 Micah Test Pos Barometric Pressure 725.5 Oxygen Given 2L POC Glucose Estimat Average Glucose Hemoglobin A1c Diagnostic Findings Telemetry personally reviewed: Rate controlled atrial fibrillation. Medications Administered Current Inpatient Medications Acetaminophen (Tylenol) 650 mg PO Q4H PRN PRN Reason: Pain or Fever Stop: 01/08/20 18:35 Amlodipine Besylate (Norvasc) 5 mg PO BID [facility] Stop: 01/08/20 20:59 Last Admin: 12/12/19 09:21 Dose: 5 mg Documented by: Aspirin (Ecotrin Ectab) 81 mg PO DAILY [facility] Stop: 01/09/20 08:59 Last Admin: 12/12/19 09:23 Dose: 81 mg Documented by: Dextrose (Dextrose 50%) 25 - 50 ml IV UD PRN; Protocol PRN Reason: Hypoglycemia Protocol Stop: 01/08/20 20:53 Glucagon (Glucagen) 1 mg SQ UD PRN; Protocol PRN Reason: Hypoglycemia Protocol Stop: 01/08/20 20:53 Glucose (Dex4 Glucose) 4 - 8 tabs PO UD PRN; Protocol PRN Reason: Hypoglycemia Protocol Stop: 01/08/20 20:53 Glucose (Glucose 40%) 15 - 30 gm PO UD PRN; Protocol PRN Reason: Hypoglycemia Protocol Stop: 01/08/20 20:53 Heparin Sodium/Dextrose (Heparin Sodium/Dextrose) 25,000 units in 500 mls @ 34 mls/hr IV .[id number] [facility]; Protocol Stop: 01/08/20 16:44 Last Titration: 12/12/19 07:21 Dose: 1,700 units/hr, 34 mls/hr Documented by: Insulin Aspart (Novolog Flexpen) 0 units SC ACHS [facility] Stop: 01/08/20 20:59 Last Admin: 12/12/19 09:20 Dose: 3 units Documented by: Lisinopril (Zestril) 5 mg PO [facility] Stop: 01/10/20 10:59 Last Admin: 12/12/19 09:22 Dose: 5 mg Documented by: Metoprolol Succinate (Toprol Xl) 200 mg PO [facility] Stop: 01/09/20 08:59 Last Admin: 12/12/19 09:23 Dose: 200 mg Documented by: Miscellaneous (Carbohydrates For Hypoglycemia) 15 - 30 gm PO UD PRN PRN Reason: Hypoglycemia Protocol Stop: 01/08/20 20:53 Ondansetron HCl (Zofran) 4 mg IV Q6H PRN PRN Reason: Nausea Stop: 01/08/20 18:35 Warfarin Sodium (Coumadin) 5 mg PO DAILY@1600 [facility] Stop: 01/11/20 15:59 PG Care Time/CCT Total # of Minutes Spent Total Time Spent with Patient: Total time spent is greater than 50% in coordination of care (as documented) at patient's floor/unit and/or counseling patient: Coding Level of Care Code 47382 Subseq Hosp Care Lvl 3 Diagnoses Atrial fibrillation I48.91 Atrial fibrillation type: unspecified Left bundle branch block (LBBB) I44.7 CKD (chronic kidney disease) N18.9 Tricuspid regurgitation I07.1 Shortness of breath R06.02 Cardiomyopathy I42.9 Pulmonary hypertension I27.20 Hypertension I10 (1) Atrial fibrillation Atrial fibrillation type: unspecified Qualified Code(s): I48.91 - Unspecified atrial fibrillation
[2019-12-12] MEDS ORDERED: FUROSEMIDE 40 MG in SYRINGE 0 ML IV ONE (10:00)
[2019-12-12 10:11] LABS: Partial Thromboplastin Ratio 1.8
[2019-12-12 10:45] LABS: Partial Thromboplastin Time 48.2 Seconds (21.0-31.0)
[2019-12-12] MEDS: HEPARIN SODIUM/DEXTROSE 25,000 UNITS/500 ML BAG IV SCH (11:38)
[2019-12-12] MEDS: WARFARIN SOD 5 MG TAB PO SCH (17:01)
--- NOTE | 2019-12-12 18:32 | Hospitalist Progress Note ---
Date of Service December 12, 2019 Assessment & Plan (1) Atrial fibrillation: new diagnosis, presented with rapid rate which may account for his dyspnea -Now rate is well controlled at rest on Toprol 200mg and dyspnea is resolved Appreciate cardiology management -Continue heparin drip for initial anticoagulation because renal function prohibits Lovenox patient does not have insurance, NOAC would be too expensive -Continue Coumadin 5 mg daily, check INR in a.m. ideally could use Lovenox bridge but likely Lovenox would be a few hundred dollars so will not bridge upon discharge hopefully tomorrow will need close follow up with cardiology -Referral to coagulation clinic has been made (2) Systolic CHF, acute on chronic: Acute systolic CHF in setting of Afib and cardiomyopathy Now improved after 2 doses of IV Lasix No lower extremity edema, dyspnea is resolved -Follow daily weights, I's and O's -Needs low-sodium diet, fluid restriction -On Toprol-XL, lisinopril was added -Will follow-up with cardiology as an outpatient (3) Shortness of breath: chief complaint, ongoing for about a year, slowly getting worse over 6 months then really bad the past month likely multifactorial could have undiagnosed lung disease as he was a smoker up until 15 years ago has severe pulmonary hypertension which is also contributing could be rate related dyspnea if he is have RVR on exertion -Needs outpatient PFT, sleep study and pulmonary follow up -consulted [facility] [place] Nurse Navigator to help set up PFT, sleep study and pulm visit -also, ordered nocturnal desaturation study and he qualifies for nocturnal oxygen in the meantime-Case management has arranged this-he will pay out of pocket as he has no insurance 2 step done here-no oxygen required at rest or on exertion (4) Cardiomyopathy: continue Toprol 200mg daily Losartan stopped started on Lisinopril 5mg daily certainly could have ischemic heart disease no need for urgent cath as there is no evidence of infarction renal function would need to be better prior to cath d/w cardiology, no plans for inpatient left heart cath EF is 30-35%, global hypokinesis will need close follow up with cardiology after discharge -IV Lasix was given as above (5) Pulmonary hypertension: continue Amlodipine certainly has several reasons for pulmonary hypertension most obvious would be left heart failure needs work up for COPD with PFT, needs sleep study to look into MARIANA as above (6) LBBB (left bundle branch block): New since ECG in 2017 Troponin negative no chest pain/pressure likely chronic issue (7) CKD (chronic kidney disease): stage III/IV disease will follow BMP daily Cr was 1.78, repeat tomorrow in the setting of giving IV Lasix today -Avoid nephrotoxins, renally dose medications when appropriate Consider outpatient follow-up with nephrology (8) Type 2 diabetes mellitus: was prescribed Metformin, would not use this with CKD, creatinine greater than 1.5 Hemoglobin A1c here is quite elevated at 9.0% Appreciate diabetic nurse educator speaking with him-plans for diet control at this time and he has not been able to exercise much given his dyspnea which is now improved -Could consider low-dose glipizide although with renal impairment and cardiac issues, this may not be the best choice -Follow-up with PCP ultimately (9) Hypertension: BP well controlled on Norvasc 5mg BID, Toprol 200mg daily and Lisinopril 5mg the Toprol and Lisinopril are new medications Plan: keep the patient again today to monitor response to IV Lasix and renal function will need Coumadin on discharge and referral to coagulation clinic will need PFT and sleep study referrals and pulm follow up will need cardiology follow up can likely go home tomorrow, patient is anxious to leave no Medicare or other insurance, ask CM to help him with Medicare paperwork new meds are Toprol, Lisinopril, Coumadin should stop Losartan, Lopressor, Metformin Subjective Patient feeling much improved since admission. He is making more urine today after receiving another dose of Lasix. I discussed the case with cardiology. He denies chest pain. He denies shortness of breath but has not been ambulating much. Overnight oximetry showed significant hypoxemia requiring O2 this morning. Telemetry with atrial fibrillation with rates in the 80s to 90s Review of Systems Review of Systems: All systems reviewed & are unremarkable except as noted in HPI & below Physical Exam Constitutional: WD/WN, vitals as above + obese Eyes: + anicteric sclerae ENMT: external ear and nose normal, oropharynx normal Neck: trachea midline, no thyromegaly Respiratory: normal respiratory effort, lungs clear to auscultation Cardiovascular: Rate/Rhythm: regular rate and + irregularly irregular Heart Sounds: no murmur Extremities: no edema Chest (Breasts): Chest: normal inspection of chest Gastrointestinal (Abdomen): normal bowel sounds, soft, nontender, no hepatosplenomegaly Musculoskeletal: Extremities: extremities normal to inspection; no cyanosis and no clubbing Skin: no rashes, warm and dry Neurologic: moves all extremities and awake; no focal motor deficits Psychiatric: A+Ox3, euthymic affect Lymphatic: no lymphedema Results & Data Vital Signs (Past 12 Hours) Vital Signs Temp Pulse Pulse Resp BP BP Pulse Ox 12/12/19 15:09 36.4 C L 84 26 H 134/92 96 12/12/19 12:47 79 12/12/19 11:33 87 20 135/91 97 12/12/19 07:13 36.5 C 86 22 146/104 H 96 Laboratory Results 12/12/19 12/12/19 12/12/19 Range/Units 20:37 16:18 11:40 PT (9.0-12.0) Seconds INR (0.9-1.1) APTT (21.0-31.0) Seconds PTT Ratio ABG pH (7.35-7.45) ABG pCO2 (35-46) mmHg ABG pO2 (80-95) mmHg ABG HCO3 (19-24) mmol/L ABG O2 Saturation (90-95) % ABG Base Excess (-9-1.8) mEq/L Micah Test (Pos) Barometric Pressure mm/Hg Oxygen Given POC Glucose 162 H 155 H 147 H (70-99) mg/dl Estimat Average Glucose mg/dl Hemoglobin A1c (4.5-5.6) % 12/12/19 12/12/19 12/12/19 Range/Units 08:22 08:22 08:22 PT 13.8 H (9.0-12.0) Seconds INR 1.4 H (0.9-1.1) APTT 48.2 H* (21.0-31.0) Seconds PTT Ratio 1.8 ABG pH 7.48 H (7.35-7.45) ABG pCO2 31 L (35-46) mmHg ABG pO2 75 L (80-95) mmHg ABG HCO3 23 (19-24) mmol/L ABG O2 Saturation 96.1 H (90-95) % ABG Base Excess 0.4 (-9-1.8) mEq/L Micah Test Pos (Pos) Barometric Pressure 725.5 mm/Hg Oxygen Given 2L POC Glucose (70-99) mg/dl Estimat Average Glucose mg/dl Hemoglobin A1c (4.5-5.6) % 12/12/19 12/11/19 Range/Units 07:29 05:17 PT (9.0-12.0) Seconds INR (0.9-1.1) APTT (21.0-31.0) Seconds PTT Ratio ABG pH (7.35-7.45) ABG pCO2 (35-46) mmHg ABG pO2 (80-95) mmHg ABG HCO3 (19-24) mmol/L ABG O2 Saturation (90-95) % ABG Base Excess (-9-1.8) mEq/L Micah Test (Pos) Barometric Pressure mm/Hg Oxygen Given POC Glucose 142 H (70-99) mg/dl Estimat Average Glucose 212 mg/dl Hemoglobin A1c 9.0 H (4.5-5.6) % PG Care Time/CCT Total # of Minutes Spent Total Time Spent with Patient: Total time spent is greater than 50% in coordination of care (as documented) at patient's floor/unit and/or counseling patient: Coding Level of Care Code 93438 Subseq Hosp Care Lvl 2 Diagnoses Atrial fibrillation I48.91 Systolic CHF, acute on chronic I50.23 Shortness of breath R06.02 Cardiomyopathy I42.9 Pulmonary hypertension I27.20 LBBB (left bundle branch block) I44.7 CKD (chronic kidney disease) N18.9 Type 2 diabetes mellitus E11.9 Hypertension I10
[2019-12-13] MEDS: HEPARIN SODIUM/DEXTROSE 25,000 UNITS/500 ML BAG IV SCH (02:12)
[2019-12-13 06:02] LABS: INR 2.2 (0.9-1.1); Partial Thromboplastin Ratio 2.1
[2019-12-13 06:03] LABS: Hematocrit (blood only) 50.3 % (42-52); Hemoglobin 17.6 g/dL (14.0-18.0); Mean Corpuscular Volume 85.8 fL (80-100); Mean Platelet Volume 12.2 fL (7.4-10.4); Platelet Count 116 K/uL (130-400); RDW Coefficient of Variation 14.2 % (11.5-14.5); RDW Standard Deviation 43.5 fL (36.4-46.3); Red Blood Count 5.86 M/uL (4.7-6.1); White Blood Count 7.69 K/uL (4.8-10.8)
[2019-12-13 06:04] LABS: Basophils # (auto) 0.01 K/uL (0-0.2); Basophils % (auto) 0.1 %; Eosinophils # (auto) 0.07 K/uL (0-0.5); Eosinophils % (auto) 0.9 %; Immature Granulocytes # (auto) 0.02 K/uL (0.00-0.02); Immature Granulocytes % (auto) 0.3 %; Lymphocytes # (auto) 1.27 K/uL (1.2-3.4); Lymphocytes % (auto) 16.5 %; Monocytes # (auto) 0.71 K/uL (0.11-0.59); Monocytes % (auto) 9.2 %; Neutrophils # (auto) 5.61 K/uL (1.4-6.5); Platelet Estimate Decreased (Normal)
[2019-12-13 06:11] LABS: BUN Creatinine Ratio 21.2 (10-20); Calcium 9.1 mg/dl (8.5-10.1); Creatinine Clr Calc Pharmacy 60.8 ml/min; Est GFR (African American) 53.7; Est GFR (Non-African American) 46.3; Potassium 3.4 mmol/L (3.5-5.1)
[2019-12-13] MEDS ORDERED: POTASSIUM CHLORIDE 20 MEQ TABCR PO STA (06:54)
[2019-12-13] MEDS: ASPIRIN 81 MG ECTAB PO SCH (08:09)
[2019-12-13] MEDS: METOPROLOL SUCC 50MG EXT REL TAB PO SCH (08:09)
[2019-12-13] MEDS: lisinopriL 5 MG TAB PO SCH (08:10)
[2019-12-13] MEDS: AMLODIPINE BESYLATE 5 MG TAB PO SCH ×2 (08:10→20:51)
[2019-12-13] MEDS: INSULIN ASPART 100 UNITS/ML 3 ML PEN SC SCH ×4 (08:11→20:50)
[2019-12-13] MEDS ORDERED: FUROSEMIDE 40 MG in SYRINGE 0 ML IV ONE (10:00)
[2019-12-13] MEDS ORDERED: POTASSIUM CHLORIDE 20 MEQ TABCR PO ONE (12:00)
--- NOTE | 2019-12-13 14:24 | Hospitalist Progress Note ---
Date of Service December 13, 2019 Assessment & Plan (1) Atrial fibrillation: new diagnosis, presented with rapid rate which may account for his dyspnea -Now rate is well controlled at rest on Toprol 200mg, dyspnea was improved, but now worse again as below despite rate control Appreciate cardiology management -can now dc heparin drip as INR therapeutic patient does not have insurance, NOAC would be too expensive -Continue Coumadin 5 mg daily, follow INR in a.m. -will need close follow up with cardiology -Referral to coagulation clinic has been made (2) Systolic CHF, acute on chronic: Acute systolic CHF in setting of Afib and cardiomyopathy ECHO here with reduced LVEF at 30-35%, global hypokinesis Somewhat improved after 2 doses of IV Lasix No lower extremity edema, dyspnea is worse today though, weight slightly down, I/Os not accurate -give another IV lasix today -Follow daily weights, I's and O's -continue low-sodium diet, fluid restriction -On Toprol-XL, lisinopril was added -Will follow-up with cardiology as an outpatient (3) Shortness of breath: chief complaint, ongoing for about a year, slowly getting worse over 6 months then really bad the past month likely multifactorial could have undiagnosed lung disease as he was a smoker up until 15 years ago has severe pulmonary hypertension which is also contributing could be rate related dyspnea if he is have RVR on exertion Was much improved, now worse again, especially with minimal exertion -diuresing as above -start IV Solu Medrol -continue scheduled nebs -Needs outpatient PFT, sleep study and pulmonary follow up-consulted [facility] Nurse Navigator to help set up -also, ordered nocturnal desaturation study and he qualifies for nocturnal oxygen in the meantime-Case management has arranged this-he will pay out of pocket as he has no insurance -will need repeat 2 step walk test prior to dc (4) Acute respiratory failure with hypoxia: as above, now requiring O2 during day and at nighttime -continue supplemental O2 to keep POx>88-92% (5) Cardiomyopathy: continue Toprol 200mg daily Losartan from home stopped started on Lisinopril 5mg daily certainly could have ischemic heart disease no need for urgent cath as there is no evidence of infarction renal function would need to be better prior to cath d/w cardiology, no plans for inpatient left heart cath EF is 30-35%, global hypokinesis will need close follow up with cardiology after discharge -IV Lasix was given as above (6) Pulmonary hypertension: continue Amlodipine certainly has several reasons for pulmonary hypertension most obvious would be left heart failure needs work up for COPD with PFT, needs sleep study to look into MARIANA as above (7) LBBB (left bundle branch block): New since ECG in 2017 Troponin negative no chest pain/pressure likely chronic issue (8) CKD (chronic kidney disease): stage III/IV disease will follow BMP daily Cr was 1.78, now down to 1.5 after IV lasix -Avoid nephrotoxins, renally dose medications when appropriate Consider outpatient follow-up with nephrology (9) Type 2 diabetes mellitus: was prescribed Metformin, would not use this with CKD, creatinine greater than 1.5 Hemoglobin A1c here is quite elevated at 9.0% Appreciate diabetic nurse educator speaking with him-plans for diet control at this time and he has not been able to exercise much given his dyspnea which is now improved -Could consider low-dose glipizide although with renal impairment and cardiac issues, this may not be the best choice -Follow-up with PCP ultimately (10) Hypertension: BP well controlled on Norvasc 5mg BID, Toprol 200mg daily and Lisinopril 5mg the Toprol and Lisinopril are new medications Plan: keep the patient again today for worsening dyspnea will need Coumadin on discharge and referral to coagulation clinic will need PFT and sleep study referrals and pulm follow up will need cardiology follow up can likely go home tomorrow, patient is anxious to leave no Medicare or other insurance, ask CM to help him with Medicare paperwork new meds are Toprol, Lisinopril, Coumadin should stop Losartan, Lopressor, Metformin Subjective Pt significantly more SOB today and not sure why. He denies cough. He ambulated to the bathroom and back shortly before I saw him and he remained tachypneic, working ot breathe which did improve with time at rest. No chest pain. He is back on O2 today. IV lasix given again this AM andhe is urinating more today. UOP not accurately recorded from yesterday. No fevers. Tele with Afib, rates mostly 80s-90s, with some brief dips into the 40s at times. Review of Systems Review of Systems: All systems reviewed & are unremarkable except as noted in HPI & below Physical Exam Constitutional: WD/WN, vitals as above + obese Eyes: + anicteric sclerae Neck: trachea midline, no thyromegaly Respiratory: + labored breathing Auscultation: + diminished lung sounds (throughout); no crackles, no rhonchi and no wheezes Cardiovascular: Rate/Rhythm: regular rate and + irregularly irregular Heart Sounds: no murmur Extremities: no edema Chest (Breasts): Chest: normal inspection of chest Gastrointestinal (Abdomen): normal bowel sounds, soft, nontender, no hepatosplenomegaly Musculoskeletal: Extremities: extremities normal to inspection; no cyanosis and no clubbing Skin: no rashes, warm and dry Neurologic: moves all extremities and awake; no focal motor deficits Psychiatric: A+Ox3, euthymic affect Lymphatic: no lymphedema Results & Data Vital Signs (Past 12 Hours) Vital Signs Temp Pulse Resp BP Pulse Ox Pulse Ox Pulse Ox 12/13/19 11:05 36.3 C L 92 H 26 H 119/85 92 12/13/19 10:37 92 92 12/13/19 07:13 92 12/13/19 07:08 26 H 134/96 84 L 12/13/19 04:07 36.3 C L 97 H 20 155/94 H 94 Pulse Ox 12/13/19 11:05 12/13/19 10:37 88 L 12/13/19 07:13 12/13/19 07:08 12/13/19 04:07 Laboratory Results 12/13/19 12/13/19 12/13/19 Range/Units 20:33 16:27 11:27 WBC (4.8-10.8) K/uL RBC (4.7-6.1) M/uL Hgb (14.0-18.0) g/dL Hct (42-52) % MCV (80-100) fL MCH (25-34) pg MCHC (32-36) g/dL RDW Std Deviation (36.4-46.3) fL RDW Coeff of Liss (11.5-14.5) % Plt Count (130-400) K/uL MPV (7.4-10.4) fL Immature Gran % (Auto) % Neut % (Auto) % Lymph % (Auto) % Thomas % (Auto) % Eos % (Auto) % Baso % (Auto) % Immature Gran # (Auto) (0.00-0.02) K/uL Neut # (Auto) (1.4-6.5) K/uL Lymph # (Auto) (1.2-3.4) K/uL Thomas # (Auto) (0.11-0.59) K/uL Eos # (Auto) (0-0.5) K/uL Baso # (Auto) (0-0.2) K/uL Platelet Estimate (Normal) PT (9.0-12.0) Seconds INR (0.9-1.1) APTT (21.0-31.0) Seconds PTT Ratio Sodium (136-145) mmol/L Potassium (3.5-5.1) mmol/L Chloride (98-107) mmol/L Carbon Dioxide (21-32) mmol/L Anion Gap (3-11) BUN (7-18) mg/dl Creatinine (0.6-1.4) mg/dl Est Cr Clr Drug Dosing ml/min Est GFR ( Amer) Est GFR (Non-Af Amer) BUN/Creatinine Ratio (10-20) Glucose (70-99) mg/dl POC Glucose 257 H 142 H 174 H (70-99) mg/dl Calcium (8.5-10.1) mg/dl Magnesium (1.8-2.4) mg/dl 12/13/19 12/13/19 12/13/19 Range/Units 07:08 05:20 05:20 WBC 7.69 (4.8-10.8) K/uL RBC 5.86 (4.7-6.1) M/uL Hgb 17.6 (14.0-18.0) g/dL Hct 50.3 (42-52) % MCV 85.8 (80-100) fL MCH 30.0 (25-34) pg MCHC 35.0 (32-36) g/dL RDW Std Deviation 43.5 (36.4-46.3) fL RDW Coeff of Liss 14.2 (11.5-14.5) % Plt Count 116 L (130-400) K/uL MPV 12.2 H (7.4-10.4) fL Immature Gran % (Auto) 0.3 % Neut % (Auto) 73.0 % Lymph % (Auto) 16.5 % Thomas % (Auto) 9.2 % Eos % (Auto) 0.9 % Baso % (Auto) 0.1 % Immature Gran # (Auto) 0.02 (0.00-0.02) K/uL Neut # (Auto) 5.61 (1.4-6.5) K/uL Lymph # (Auto) 1.27 (1.2-3.4) K/uL Thomas # (Auto) 0.71 H (0.11-0.59) K/uL Eos # (Auto) 0.07 (0-0.5) K/uL Baso # (Auto) 0.01 (0-0.2) K/uL Platelet Estimate Decreased L (Normal) PT (9.0-12.0) Seconds INR (0.9-1.1) APTT (21.0-31.0) Seconds PTT Ratio Sodium 138 (136-145) mmol/L Potassium 3.4 L (3.5-5.1) mmol/L Chloride 107 (98-107) mmol/L Carbon Dioxide 22 (21-32) mmol/L Anion Gap 9.0 (3-11) BUN 33 H (7-18) mg/dl Creatinine 1.54 H (0.6-1.4) mg/dl Est Cr Clr Drug Dosing 60.8 ml/min Est GFR ( Amer) 53.7 Est GFR (Non-Af Amer) 46.3 BUN/Creatinine Ratio 21.2 H (10-20) Glucose 161 H (70-99) mg/dl POC Glucose 181 H (70-99) mg/dl Calcium 9.1 (8.5-10.1) mg/dl Magnesium 2.0 (1.8-2.4) mg/dl 12/13/19 Range/Units 05:20 WBC (4.8-10.8) K/uL RBC (4.7-6.1) M/uL Hgb (14.0-18.0) g/dL Hct (42-52) % MCV (80-100) fL MCH (25-34) pg MCHC (32-36) g/dL RDW Std Deviation (36.4-46.3) fL RDW Coeff of Liss (11.5-14.5) % Plt Count (130-400) K/uL MPV (7.4-10.4) fL Immature Gran % (Auto) % Neut % (Auto) % Lymph % (Auto) % Thomas % (Auto) % Eos % (Auto) % Baso % (Auto) % Immature Gran # (Auto) (0.00-0.02) K/uL Neut # (Auto) (1.4-6.5) K/uL Lymph # (Auto) (1.2-3.4) K/uL Thomas # (Auto) (0.11-0.59) K/uL Eos # (Auto) (0-0.5) K/uL Baso # (Auto) (0-0.2) K/uL Platelet Estimate (Normal) PT 21.0 H (9.0-12.0) Seconds INR 2.2 H (0.9-1.1) APTT 58.0 H* (21.0-31.0) Seconds PTT Ratio 2.1 Sodium (136-145) mmol/L Potassium (3.5-5.1) mmol/L Chloride (98-107) mmol/L Carbon Dioxide (21-32) mmol/L Anion Gap (3-11) BUN (7-18) mg/dl Creatinine (0.6-1.4) mg/dl Est Cr Clr Drug Dosing ml/min Est GFR ( Amer) Est GFR (Non-Af Amer) BUN/Creatinine Ratio (10-20) Glucose (70-99) mg/dl POC Glucose (70-99) mg/dl Calcium (8.5-10.1) mg/dl Magnesium (1.8-2.4) mg/dl PG Care Time/CCT Total # of Minutes Spent Total Time Spent with Patient: Total time spent is greater than 50% in coordination of care (as documented) at patient's floor/unit and/or counseling patient: Coding Level of Care Code 86743 Subseq Hosp Care Lvl 3 Diagnoses Atrial fibrillation I48.91 Systolic CHF, acute on chronic I50.23 Shortness of breath R06.02 Acute respiratory failure with hypoxia J96.01 Cardiomyopathy I42.9 Pulmonary hypertension I27.20 LBBB (left bundle branch block) I44.7 CKD (chronic kidney disease) N18.9 Type 2 diabetes mellitus E11.9 Hypertension I10
[2019-12-13] MEDS ORDERED: methylPREDNISolone 125 MG in SYRINGE 0 ML IV STA (14:28)
[2019-12-13] MEDS: ALBUT/IPRATROP 3MG/0.5MG NEB 3 ML VIAL NEB SCH ×2 (15:32→19:49)
[2019-12-13] MEDS: WARFARIN SOD 5 MG TAB PO SCH (16:07)
[2019-12-14] MEDS: methylPREDNISolone 60 MG in SYRINGE 0 ML IV SCH ×2 (03:53→12:33)
[2019-12-14] MEDS: ALBUT/IPRATROP 3MG/0.5MG NEB 3 ML VIAL NEB SCH (07:10)
[2019-12-14 07:42] LABS: Prothrombin Time 41.7 Seconds (9.0-12.0)
[2019-12-14 08:00] LABS: BUN Creatinine Ratio 24.2 (10-20); Calcium 9.5 mg/dl (8.5-10.1); Est GFR (African American) 50.9; Est GFR (Non-African American) 43.9; Magnesium 2.2 mg/dl (1.8-2.4); Potassium 4.6 mmol/L (3.5-5.1)
[2019-12-14 08:10] LABS: INR 4.5 (0.9-1.1)
[2019-12-14] MEDS: INSULIN ASPART 100 UNITS/ML 3 ML PEN SC SCH ×2 (08:39→12:34)
[2019-12-14] MEDS: ASPIRIN 81 MG ECTAB PO SCH (08:40)
[2019-12-14] MEDS: lisinopriL 5 MG TAB PO SCH (08:40)
[2019-12-14] MEDS: METOPROLOL SUCC 50MG EXT REL TAB PO SCH (08:40)
[2019-12-14] MEDS: AMLODIPINE BESYLATE 5 MG TAB PO SCH (08:42)
[2019-12-14] MEDS ORDERED: guaiFENesin 600 MG TABCR PO SCH (09:00)
--- NOTE | 2019-12-14 09:05 | Cardiology Progress Note ---
Date of Service December 14, 2019 Assessment & Plan (1) Atrial fibrillation: (2) Left bundle branch block (LBBB): (3) CKD (chronic kidney disease): (4) Tricuspid regurgitation: (5) Shortness of breath: (6) Cardiomyopathy: (7) Pulmonary hypertension: (8) Hypertension: ASSESSMENT/PLAN: 1. Atrial fibrillation: Heart rate adequately controlled. Metoprolol has been increased during this hospital stay. Continue metoprolol succinate 200 mg daily. Elevated chads Vasc score. Continue outpatient anticoagulation for stroke risk reduction. Hospitalist service has chosen warfarin. Financial issues have made it more challenging for NOAC agent. INR currently supratherapeutic. Hold/adjust warfarin. 2. Cardiomyopathy: Etiology uncertain. He does have significant QRS widening with his left bundle branch block. He has multiple risk factors for coronary disease including prior tobacco abuse, diabetes, and hypertension. We discussed potential ischemic evaluation but there is no urgent indication at this time. He has declined cardiac catheterization during this hospitalization but states that he would consider in the future. Continue metoprolol succinate. Continue CHARITO-inhibitor, which was started during this hospitalization in place of losartan. He has received 2 doses of Lasix 40 mg IV. His net fluid balance remains positive however he did not collect all of his urine. His weight has not significantly improved. His breathing difficulties likely due to COPD, w hich is not yet formally diagnosed. He does not appear to be significantly hypervolemic, however difficult exam. We have discussed importance of a low- sodium diet. Check daily weights at home. Titrate medications as an outpatient. 3. LBBB: New diagnosis for him but his most recent ECG to compare to was from 2006. No acute symptoms to suggest acute infarct. 4. Pulmonary hypertension: Etiology uncertain. No acute symptoms to suggest PE and he will be anticoagulated for atrial fibrillation. If cardiac catheterization is performed, would consider right heart catheterization as well. Does have Tobacco history and likely COPD. 5. Tricuspid regurgitation: Appeared moderate. Follow over time. 6. Hypertension: Blood pressure reasonably controlled. Continue current regimen. 7. CKD: Monitor over time. 8. Shortness of breath: Likely due to COPD, however he has not yet had PFTs. He has noted significant improvement in his breathing following administration of IV steroids and albuterol. As per primary service. 9. Disposition: Recommended cardiology follow-up on discharge in approximately 2 weeks. He wants to go home today. Plan of care discussed with Dr. Win the primary hospitalist service. Subjective He feels much better today. His dyspnea with exertion has almost resolved. He has received 2 doses of IV Lasix and admits that he did not collect all of his urine but most of it. Despite this, his net fluid balance is still quite positive for hospital stay if accurate. His weight has also not significantly improve, changing less than 1 keeping g. He reports significant improvement in his breathing after receiving nebulizer treatment yesterday. He really wants to go home today. He denies bleeding, chest pain, palpitations, syncope, orthopnea, or PND. Review of systems: As above. Physical Exam Physical Exam: Gen.: No acute distress. Alert and oriented. HEENT: Anicteric sclera. Neck: No appreciable JVD, but thick neck. Cardiac: No ventricular heave. Irregularly irregular. Normal heart rate. Normal S1-S2. No murmurs, rubs, or gallops. Pulmonary: Clear to auscultation bilaterally without wheezes, rales, or rhonchi. Abdomen: Soft, nontender, nondistended, with normoactive bowel sounds. No bruits noted. Extremities: 2+ radial pulses bilaterally. 2+ posterior tibialis pulses bilaterally. No edema or cyanosis. Psychiatric: Affect appears appropriate. Results & Data Vital Signs (Past 12 Hours) Vital Signs Temp Pulse Resp BP Pulse Ox 12/14/19 07:36 36.5 C 90 18 140/84 93 12/14/19 07:11 91 H 16 94 12/14/19 03:49 36.6 C 88 32 H 136/95 98 12/13/19 23:30 36.8 C 99 H 32 H 130/90 97 Intake & Output 12/12/19 12/13/19 12/14/19 12/15/19 06:59 06:59 06:59 06:59 Intake Total 1672.867 / 0398.814 4102.567 / 5167.208 9142 / 1550 Output Total 850 / 850 301 / 301 600 / 600 Balance 822.867 / 359.537 5675.567 / 1320.567 950 / 950 Weight 114.9 kg 114.4 kg 114.2 kg Laboratory Results Laboratory Results - last 24 hr 12/13/19 12/13/19 12/13/19 11:27 16:27 20:33 PT INR Sodium Potassium Chloride Carbon Dioxide Anion Gap BUN Creatinine Est Cr Clr Drug Dosing Est GFR ( Amer) Est GFR (Non-Af Amer) BUN/Creatinine Ratio Glucose POC Glucose 174 H 142 H 257 H Calcium Magnesium 12/14/19 12/14/19 12/14/19 07:07 07:07 07:33 PT 41.7 H INR 4.5 H Sodium 139 Potassium 4.6 D Chloride 108 H Carbon Dioxide 21 Anion Gap 9.0 BUN 39 H Creatinine 1.61 H Est Cr Clr Drug Dosing 58.0 Est GFR ( Amer) 50.9 Est GFR (Non-Af Amer) 43.9 BUN/Creatinine Ratio 24.2 H Glucose 273 H POC Glucose 252 H Calcium 9.5 Magnesium 2.2 Diagnostic Findings Telemetry personally reviewed: Atrial fibrillation. Reasonable heart rate control. Medications Administered Current Inpatient Medications Acetaminophen (Tylenol) 650 mg PO Q4H PRN PRN Reason: Pain or Fever Stop: 01/08/20 18:35 Albuterol (Duoneb) 3 ml NEB QIDR [facility] Stop: 01/12/20 14:59 Last Admin: 12/14/19 07:10 Dose: 3 ml Documented by: Amlodipine Besylate (Norvasc) 5 mg PO BID [facility] Stop: 01/08/20 20:59 Last Admin: 12/14/19 08:42 Dose: 5 mg Documented by: Aspirin (Ecotrin Ectab) 81 mg PO DAILY [facility] Stop: 01/09/20 08:59 Last Admin: 12/14/19 08:40 Dose: 81 mg Documented by: Dextrose (Dextrose 50%) 25 - 50 ml IV UD PRN; Protocol PRN Reason: Hypoglycemia Protocol Stop: 01/08/20 20:53 Glucagon (Glucagen) 1 mg SQ UD PRN; Protocol PRN Reason: Hypoglycemia Protocol Stop: 01/08/20 20:53 Glucose (Dex4 Glucose) 4 - 8 tabs PO UD PRN; Protocol PRN Reason: Hypoglycemia Protocol Stop: 01/08/20 20:53 Glucose (Glucose 40%) 15 - 30 gm PO UD PRN; Protocol PRN Reason: Hypoglycemia Protocol Stop: 01/08/20 20:53 Guaifenesin (Mucinex) 1,200 mg PO Q12 [facility] Stop: 01/13/20 08:59 Last Admin: 12/14/19 08:40 Dose: 1,200 mg Documented by: Methylprednisolone 60 mg/ (Syringe) 0.96 mls @ 1.5 mls/min IV Q12H [facility] Stop: 01/13/20 01:59 Last Admin: 12/14/19 03:53 Dose: 1.5 mls/min Documented by: Insulin Aspart (Novolog Flexpen) 0 units SC ACHS [facility] Stop: 01/08/20 20:59 Last Admin: 12/14/19 08:39 Dose: 6 units Documented by: Insulin Glargine (Lantus Solostar Pen) 5 units SC DAILY [facility] Stop: 01/13/20 08:59 Lisinopril (Zestril) 5 mg PO QAM [facility] Stop: 01/10/20 10:59 Last Admin: 12/14/19 08:40 Dose: 5 mg Documented by: Metoprolol Succinate (Toprol Xl) 200 mg PO QAM [facility] Stop: 01/09/20 08:59 Last Admin: 12/14/19 08:40 Dose: 200 mg Documented by: Miscellaneous (Carbohydrates For Hypoglycemia) 15 - 30 gm PO UD PRN PRN Reason: Hypoglycemia Protocol Stop: 01/08/20 20:53 Ondansetron HCl (Zofran) 4 mg IV Q6H PRN PRN Reason: Nausea Stop: 01/08/20 18:35 Warfarin Sodium (Coumadin) 5 mg PO DAILY@1600 [facility] Stop: 01/11/20 15:59 Last Admin: 12/13/19 16:07 Dose: 5 mg Documented by: PG Care Time/CCT Total # of Minutes Spent Total Time Spent with Patient: Total time spent is greater than 50% in coordination of care (as documented) at patient's floor/unit and/or counseling patient: Coding Level of Care Code 08789 Subseq Hosp Care Lvl 3 Diagnoses Atrial fibrillation I48.91 Atrial fibrillation type: unspecified Left bundle branch block (LBBB) I44.7 CKD (chronic kidney disease) N18.9 Tricuspid regurgitation I07.1 Shortness of breath R06.02 Cardiomyopathy I42.9 Pulmonary hypertension I27.20 Hypertension I10 (1) Atrial fibrillation Atrial fibrillation type: unspecified Qualified Code(s): I48.91 - Unspecified atrial fibrillation
[2019-12-14] MEDS ORDERED: INSULIN GLARGINE SOLOSTAR 100 UNITS/ML 3 ML PEN SC SCH (10:00)
--- NOTE | 2019-12-14 12:45 | Discharge Summary ---
Date of Service December 14, 2019 Admission HPI Per Admitting Provider 64 yo male with history of HTN, tobacco abuse who presented to the ED today due to worsening shortness of breath. He reports that he has noticed some dyspnea over the past year, started with some mild dyspnea on exertion, he noticed he would get winded faster than in the past. He noticed that he could not walk as far without getting short of breath. Progressed to the point that he was having some dyspnea at rest, had some nocturnal dyspnea, orthopnea. He was advised by his neighbor to get evaluated. He called his PCP and she advised him to come to the ED for evaluation. Dyspnea is his primary complaint. He denies having chest pain or pressure, no palpitations. No fever/chills, no cough. He smoked up until 15 years ago, he was 49 at the time he quit, smoked for 30 years. 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 Prior to these symptoms starting gradually a year ago, he has never experienced shortness of breath. Reports that he was an avid hiker, would carry heavy back pack and would hike up the mountains in the area without difficulty. He has not been able to do that the past year. No known history of coronary disease. He does not follow with his PCP very closely, has a history of HTN and he reports that he takes his medications as prescribed. In the ED he was found to be in atrial fibrillation with rates in the 90-100 range. He had a new LBBB on the EKG. Cardiology called to evaluate patient, initially a heart alert was called due to the new LBBB finding. Since he had no chest pain or pressure and it was unclear if the LBBB was brand new, a troponin was ordered. Troponin was 0.03 so he was not taken for heart cath. CXR showed cardiomegaly. BNP elevated at 5000. Urgent echocardiogram performed, showed reduced EF of 35%, extremely high pulmonary pressures at 73mmHg, tricuspid regurgitation. Discussed plan with Dr. Solorzano at the time of admission. Principal Diagnosis Rapid atrial fibrillation, Chronic systolic CHF, Nocturnal hypoxia Discharge Exam Constitutional WD/WN, vitals as above + obese Eyes + anicteric sclerae ENMT external ear and nose normal, oropharynx normal Neck trachea midline, no thyromegaly Respiratory normal respiratory effort, lungs clear to auscultation + labored breathing Auscultation: + diminished lung sounds (throughout); no crackles, no rhonchi and no wheezes Cardiovascular Rate/Rhythm: regular rate and + irregularly irregular Heart Sounds: no murmur Extremities: no edema Chest (Breasts) Chest: normal inspection of chest Gastrointestinal (Abdomen) normal bowel sounds, soft, nontender, no hepatosplenomegaly Musculoskeletal Extremities: extremities normal to inspection; no cyanosis and no clubbing Skin no rashes, warm and dry Neurologic moves all extremities and awake; no focal motor deficits Psychiatric A+Ox3, euthymic affect Lymphatic no lymphedema Discharge Data Allergies Allergy/AdvReac Type Severity Reaction Status Date / Time No Known Allergies Allergy Mild Verified 05/24/19 13:41 Consultations 12/09/19 16:51 ED Decision to Admit Stat 12/09/19 18:36 Consult Cardiology Routine 12/11/19 13:55 Consult [facility] diagnostic technologist Routine Procedures Performed Operation Date: 12/09/19 16:30 Actual Procedures p Aspiration/PCI w/SHEN for Stemi - Ezequiel Andrews MD Ordered Studies 12/09/19 16:20 CL Cath Imgs for PACS use only Stat CXR ECHO Hospital Course (1) Atrial fibrillation: new diagnosis, presented with rapid rate which may account for some of his dyspnea -Now rate is well controlled at rest on Toprol 200mg, dyspnea improved Appreciate cardiology management -initially was on heparin drip which was stopped when INR became therapeutic patient does not have insurance, NOAC would be too expensive -initiated Coumadin --> INR dale very quickly and was high on day of discharge at 4.5 -advised to hold coumadin and has appt with Anticoag clinic tomorrow -will need close follow up with cardiology (2) Systolic CHF, acute on chronic: Acute systolic CHF in setting of Afib and cardiomyopathy ECHO here with reduced LVEF at 30-35%, global hypokinesis Dyspnea also improved after several doses of IV Lasix No lower extremity edema, weight slightly down, I/Os not accurate throughout his stay -Follow daily weights at home, gave CHF counseling -continue low-sodium diet, fluid restriction -On Toprol-XL, lisinopril was added -Will follow-up with cardiology as an outpatient (3) Shortness of breath: chief complaint, ongoing for about a year, slowly getting worse over 6 months then really bad the past month likely multifactorial could have undiagnosed lung disease as he was a smoker up until 15 years ago has severe pulmonary hypertension which is also contributing could be rate related dyspnea if he is have RVR on exertion Also with newly diagnosed cardiomyopathy as above, improved with IV lasix -diuresed as above -treated with IV Solu Medrol and will give prednisone taper upon discharge -treated with bronchodilators -Needs outpatient PFT, sleep study and pulmonary follow up-consulted [facility] Nurse Navigator to help set up -also, ordered nocturnal desaturation study and he qualifies for nocturnal oxygen in the meantime-Case management has arranged this-he will pay out of pocket as he has no insurance - he passed a 2 step walk test prior to discharge and does not qualify for daytime O2 (4) Acute respiratory failure with hypoxia: as above, only needs O2 at nighttime at time of discharge, but was requiring O2 during the day intermittently througout his stay (5) Cardiomyopathy: continue Toprol 200mg daily Losartan from home stopped started on Lisinopril 5mg daily certainly could have ischemic heart disease no need for urgent cath as there is no evidence of infarction renal function would need to be better prior to cath d/w cardiology, no plans for inpatient left heart cath EF is 30-35%, global hypokinesis will need close follow up with cardiology after discharge -IV Lasix was given as above (6) Pulmonary hypertension: continue Amlodipine certainly has several reasons for pulmonary hypertension most obvious would be left heart failure needs work up for COPD with PFT, needs formal sleep study to look into MARIANA as above-continue nocturnal O2 for now (7) LBBB (left bundle branch block): New since ECG in 2017 Troponin negative no chest pain/pressure likely chronic issue (8) CKD (chronic kidney disease): stage III/IV disease will follow BMP daily Cr was 1.78, now down to 1.6 after IV lasix -Avoid nephrotoxins, renally dose medications when appropriate Consider outpatient follow-up with nephrology (9) Type 2 diabetes mellitus: was prescribed Metformin, would not use this with CKD, creatinine greater than 1.5 Hemoglobin A1c here is quite elevated at 9.0% Appreciate diabetic nurse educator speaking with him-plans for diet control at this time and he has not been able to exercise much given his dyspnea which is now improved -Could consider low-dose glipizide although with renal impairment and cardiac issues, this may not be the best choice -Follow-up with PCP ultimately--> discharged to home on NO meds for DMII--> it was felt that he would not be able to handle starting insulin currently given all of the other new medications and issues going on. ALso has no insurance and no income -needs close PCP follow up, possibly samples at office could be given (10) Hypertension: BP well controlled on Norvasc 5mg BID, Toprol 200mg daily and Lisinopril 5mg the Toprol and Lisinopril are new medications Plan: stable for dc to home, much improved no Medicare or other insurance, CM helped him with Medical assistance paperwork new meds are Toprol, Lisinopril, Coumadin should stop Losartan, Lopressor, Metformin Total Time Total Time Spent Total Time Spent (In Minutes): 45 min Total Time Includes: Examination of the Patient, Discharge Planning, Medication Reconciliation and Communication With Other Providers (Cardiology) Discharge Plan Discharge Items Patient Disposition: Home - Home Health Services Reason For Visit: NEW ONSET AFIB,SYSTOLIC HEART FAILURE Discharge Diagnosis: Atrial fibrillation, acute on chronic systolic CHF, nocturnal hypoxemia Condition on Discharge: Fair Activity: As commented below Lifting: Gradually increase as tolerated Bathing: No limitations Exercise/Sports: Gradually increase as tolerated Weightbearing: Full weightbearing Non-emergency contact: Primary Care Provider, Carton Machine Operator and Gang Worker Call non-emergency contact if: you have any medication questions and your s ymptoms worsen Follow-up/Referrals: [facility] [Provider Group] - 12/15/19 10:30 am (Please, follow up at [facility] (Coumadin Clinic) on December 15 at 10:30 am. *The clinic is located in the rear of this hospital building. Park BEHIND the hospital in [address] and enter via [facility]. If you need to change this appointment, call Central Scheduling at [phone].) Jackie Yanez PA-C [Physician Thread Trimmer] - 12/26/19 8:30 am (Please, follow up at [facility] Cardiology Office with Jackie Yanez PA-C on ThursdayDecember 26 at 8:30 am. *The office is located in [address] [facility], next to this hospital. If you need to change this appointment, call the office at [phone].) Nora Womack MD [Primary Care Provider] - 12/20/19 2:00 pm (Please, follow up with Dr. Womack on ThursdayDecember 20 at 2:00 pm. *If you need to change this appointment, call the office at [phone].) Isak Roy MD [Physician] - 12/23/19 1:00 pm (Please, follow up at [facility] Pulmonology Office with Dr. Isak Roy on ThursdayDecember 23 at 1:00 pm. *The office is located in [address] [facility], next to this hospital. If you need to change this appointment, call the office at [phone].) Diet: Carb Consistent or DM2 and Low Sodium (2gm) Fluids: 1800ml (7 cups) Addtl Attending Provider Instructions: You are admitted for shortness of breath and found to have a rapid irregular heart rhythm called atrial fibrillation. You are placed on a blood thinner to reduce the risk of you having a stroke that can be caused by atrial fibrillation. The blood thinners called Coumadin or warfarin. He requires a blood test and you have an appointment scheduled for tomorrow with the anticoagulation clinic to have this blood test done. Because your blood was too thin today, please do not take the Coumadin on 12/14 and await further instructions at the anticoagulation clinic appointment tomorrow. You have also been started on additional heart medications. Please follow the medication list carefully You most likely have COPD from your history of smoking. You were given inhaler to help with this and a course of prednisone to reduce inflammation in your lungs. It is important for you to wear the oxygen every night at bedtime or when taking naps. Because your kidney function is not normal, it is recommended that you stop taking metformin for your diabetes. Please work on eating a low carbohydrate diet and working on weight loss and increased activity as tolerated to improve your diabetes. Please discuss a different or alternative medication for your diabetes with your primary care physician. Please follow-up with the radar operator, the assistant strength coach, and your primary care physician as scheduled for you. Call your Primary Care doctor if any of the following symptoms or problems start or get worse: * Shortness of breath or difficulty breathing * Wake up at night short of breath * Chest pain * Cough * Swelling of your hands, feet, or legs * More fatigued or tired with your normal activity * Palpitations - sudden fast heart beats WEIGHT * Weigh yourself every morning after using the bathroom. * Use the same scale. * Wear the same amount of clothing. * Write your weight down on a chart. * Call your Primary Care doctor if you gain more than 2-3 pounds in 1-2 days. MEDICATIONS * Use this discharge instruction sheet for medication instructions. * Take your medications at the time your doctor ordered. * Do not skip a dose of your medicines. * If you miss a dose of medicine, take it as soon as possible, but DO NOT DOUBLE A DOSE. * Read your medicine information when you get home. * Know all of the side effects of your medicine. If in doubt, ask your pharmacist * Call your Primary Care doctor's office if you have any side effects. * Be sure all of your doctors know what medicine and herbs you take (including cold, flu, and herbal medicine). Take the following with you to your follow-up doctor appointments: * Weight Chart * Medication List * List of questions Do not drink excessive alcohol, beer or wine. Pending Studies at Discharge: No Stand-Alone Forms: [facility] Medications and DC Order Prescriptions: New Combivent Respimat 20-100 mcg/actuation Mist 1 puff inhalation QID PRN (Reason: shortness of breath or wheezing) Qty: 4 RF: 0 lisinopril [Zestril] 5 mg Tablet 5 mg PO QAM Qty: 30 RF: 0 metoprolol succinate 200 mg tablet extended release 24 hr 200 mg PO DAILY Qty: 30 RF: 0 furosemide [Lasix] 40 mg tablet 40 mg PO DAILY PRN (Reason: weight gain of 2-3 lbs in 1 day) Qty: 30 RF: 0 prednisone 10 mg tablet 40 mg PO DAILY Qty: 20 RF: 0 Continued amlodipine 10 mg tablet 5 mg PO BID Qty: 30 RF: 5 aspirin 81 mg tablet,delayed release (DR/EC) 81 mg PO DAILY Qty: 30 RF: 0 Discontinued losartan 100 mg tablet 100 mg PO DAILY Qty: 90 RF: 3 metoprolol tartrate 50 mg tablet 50 mg PO BID Qty: 180 RF: 3 peg 3350-electrolytes [Golytely] 236-22.74-6.74 -5.86 gram recon soln 240 ml PO Q10M Qty: 4000 RF: 0 metformin 500 mg tablet 500 mg PO DAILY Qty: 60 RF: 0 No Action warfarin 1 mg tablet See Rx Instructions PO DAILY 30 Days Qty: 30 RF: 2 Discharge Orders: Discharge Order (Routine); Ordered 12/14/19 Ordered By: Mi Vasquez/Other Patient Handouts: Taking Coumadin, Diabetes Technical Communication Teacher Complications, Hyperglycemia, Hypoglycemia, Diabetes Resources, Diabetes Healthy Meals, Diabetes Exercise Benefits, Diabetes Living Life, Diabetes Manage A1C Test Admission Data Admit Date/Time: 12/11/19 21:34 Attending Provider: Mi Win Admit Provider: Angel Wagner Primary Care Provider: Nora Womack Other Providers: Jaquelin Pryor ; Vu Solorzano Other Interventions: Discharge Summary Assessment (RN) Last Done: 12/14/19 13:23 DC Date/Time DO NOT enter until pt leaves facility: 12/14/19 13:57 Coding Level of Care Code D/C Day Management >30 mins Diagnoses Atrial fibrillation I48.91 Systolic CHF, acute on chronic I50.23 Shortness of breath R06.02 Acute respiratory failure with hypoxia J96.01 Cardiomyopathy I42.9 Pulmonary hypertension I27.20 LBBB (left bundle branch block) I44.7 CKD (chronic kidney disease) N18.9 Type 2 diabetes mellitus E11.9 Hypertension I10
[2019-12-14] MEDS ORDERED: IPRATROPIUM BROMIDE/ALBUTEROL respimat INH INH SCH (13:00)
== END 2019-12-14 13:57 | disposition home health service (06) | DRG 308 ==
LOC: ED 15:40 → 2S 17:08 → INTOOBSV 17:08 → 2S 18:12 → SUATTDRO 12-11 21:34

== ENCOUNTER 2020-03-02 11:02 | Inpatient (IN) ==
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
[2020-03-02] MEDS ORDERED: SODIUM CHLORIDE 0.9% 1000ML 1,000 ML IV SCH (11:30)
[2020-03-02 11:36] LABS: Basophils # (auto) 0.02 K/uL (0-0.2); Basophils % (auto) 0.2 %; Eosinophils % (auto) 2.2 %; Hematocrit (blood only) 50.8 % (42-52); Hemoglobin 16.8 g/dL (14.0-18.0); Immature Granulocytes # (auto) 0.01 K/uL (0.00-0.02); Immature Granulocytes % (auto) 0.1 %; Lymphocytes # (auto) 1.82 K/uL (1.2-3.4); Lymphocytes % (auto) 20.2 %; Mean Corpuscular Hemoglobin 29.2 pg (25-34); Mean Corpuscular Hgb Conc 33.1 g/dL (32-36); Mean Corpuscular Volume 88.2 fL (80-100); Mean Platelet Volume 11.8 fL (7.4-10.4); Monocytes # (auto) 0.55 K/uL (0.11-0.59); Monocytes % (auto) 6.1 %; Neutrophils # (auto) 6.39 K/uL (1.4-6.5); Neutrophils % (auto) 71.2 %; Platelet Count 209 K/uL (130-400); RDW Coefficient of Variation 17.8 % (11.5-14.5); RDW Standard Deviation 53.9 fL (36.4-46.3); Red Blood Count 5.76 M/uL (4.7-6.1); White Blood Count 8.99 K/uL (4.8-10.8)
--- NOTE | 2020-03-02 11:41 | XRay Report ---
XR chest 1V portable HISTORY: 64 years-old Male weakness acute weakness COMPARISON: Chest radiograph 12/09/2019 TECHNIQUE: Portable AP view of the chest FINDINGS: Cardiac silhouette is enlarged, unchanged. Mild right hemidiaphragmatic elevation. No pneumothorax, p leural effusion, airspace consolidation or overt pulmonary edema. Bones of the chest appear grossly i ntact. IMPRESSION: Cardiomegaly without acute process. ACT 112: Negative or not required by law. The above report was generated using voice recognition software. It may contain grammatical, syntax o r spelling errors. Electronically signed by: Osmin Shirley M.D. 03/02/2020 11:40 AM
[2020-03-02 11:47] LABS: INR 1.6 (0.9-1.1); Partial Thromboplastin Ratio 1.1; Partial Thromboplastin Time 29.7 Seconds (21.0-31.0); Prothrombin Time 16.1 Seconds (9.0-12.0)
[2020-03-02 11:53] LABS: Alanine Aminotransferase 45 U/L (12-78); Albumin Level 3.3 gm/dl (3.4-5.0); Aspartate Aminotransferase 39 U/L (15-37); BUN Creatinine Ratio 18.7 (10-20); Blood Urea Nitrogen 65 mg/dl (7-18); Calcium 9.2 mg/dl (8.5-10.1); Carbon Dioxide 26 mmol/L (21-32); Chloride 99 mmol/L (98-107); Est GFR (Non-African American) 17.3; Glucose 137 mg/dl (70-99); Magnesium 2.2 mg/dl (1.8-2.4); Potassium 3.8 mmol/L (3.5-5.1); Sodium 135 mmol/L (136-145)
[2020-03-02 12:04] LABS: Alkaline Phosphatase 78 U/L (45-117); Bilirubin,Total 1.6 mg/dl (0.2-1); Creatine Kinase 168 U/L (39-308); Globulin 3.2 gm/dl (2.5-4.0); Total Protein 6.5 gm/dl (6.4-8.2)
[2020-03-02 12:16] LABS: T4 Free Thyroxine 1.42 ng/dl (0.8-1.6)
--- NOTE | 2020-03-02 12:24 | CT Scan Report ---
CT head/brain wo con CLINICAL HISTORY: 64 years-old Male with confusion. Acutely altered mental status TECHNIQUE: Multiple axial CT images of the head were obtained without contrast. A dose lowering tech nique was utilized adhering to the principles of ALARA. CT DOSE: 614.27 mGy.cm COMPARISON: None. FINDINGS: No acute intracranial hemorrhage, midline shift, intracranial mass, hydrocephalus, territorial ischem ia or abnormal extra-axial collection. Age-related involutional changes with ex vacuo ventriculomegal y. Patchy white matter hypodensities suggest chronic microvascular ischemic disease. Suggestion of re mote lacunar infarcts of the bilateral squires radiata distributions. Cerebral vascular calcifications . The calvarium is intact. The paranasal sinuses, mastoid air cells, and middle ear cavities are clear . IMPRESSION: No acute intracranial abnormality. ACT 112: Negative or not required by law. The above report was generated using voice recognition software. It may contain grammatical, syntax o r spelling errors. Electronically signed by: Osmin Shirley M.D. 03/02/2020 12:23 PM
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
[2020-03-02] MEDS ORDERED: ONDANSETRON INJ 2 MG/ML 2 ML VIAL IV PRN (14:40)
[2020-03-02] MEDS ORDERED: POLYETHYLENE (MIRALAX) 17 GM PACK PO PRN (14:40)
[2020-03-02] MEDS ORDERED: IPRATROPIUM BROMIDE/ALBUTEROL respimat INH INH PRN (14:40)
[2020-03-02] MEDS ORDERED: CARBOHYDRATES FOR HYPOGLYCEMIA PO PRN (15:00)
[2020-03-02] MEDS ORDERED: DEXTROSE 50% 50 ML SYRINGE IV PRN (15:00)
[2020-03-02] MEDS ORDERED: GLUCAGON FOR INJ 1 MG VIAL IM PRN (15:00)
[2020-03-02] MEDS ORDERED: GLUCOSE 40% GEL 15 GM TUBE PO PRN (15:00)
[2020-03-02] MEDS ORDERED: GLUCOSE 10 TABS/TUBE PO PRN (15:00)
[2020-03-02] MEDS: NYSTATIN 30 ML, DEXAMETHASONE CONC 3.75 MG, DiphenhydrAMINE Syrup 300 MG, ORA-SWEET SYR... PO SCH ×2 (15:30→20:56)
[2020-03-02] MEDS: Heparin IV Standard *NO* Bolus IV SCH ×3 (15:31→15:52)
[2020-03-02] MEDS ORDERED: NSS + 20MEQ KCL 20 MEQ/1,000 ML BAG IV ONE (16:00)
[2020-03-02] MEDS: HEPARIN SODIUM/DEXTROSE 25,000 UNITS/500 ML BAG IV SCH (16:04)
[2020-03-02] MEDS: WARFARIN SOD 2 MG TAB PO SCH (16:58)
[2020-03-02 17:31] LABS: BUN Creatinine Ratio 21.5 (10-20); Calcium 9.3 mg/dl (8.5-10.1); Creatinine Clr Calc Pharmacy 26.5 ml/min; Est GFR (African American) 21.1; Est GFR (Non-African American) 18.2
--- NOTE | 2020-03-02 17:44 | Electrocardiogram Report ---
Test Reason : Blood Pressure : / mmHG Vent. Rate : 081 BPM Atrial Rate : 075 BPM P-R Int : 000 ms QRS Dur : 104 ms QT Int : 414 ms P-R-T Axes : 000 040 057 degrees QTc Int : 480 ms Atrial fibrillation T wave abnormality, consider anterolateral ischemia Prolonged QT Abnormal ECG When compared with ECG of 11-DEC-2019 06:41, Left bundle branch block is no longer Present Confirmed by Vu Solorzano ([id number]) on 03/02/2020 5:43:39 PM Referred By: ED Confirmed By:Vu Solorzano
[2020-03-02 17:45] LABS: Potassium 4.4 mmol/L (3.5-5.1)
[2020-03-02] MEDS: INSULIN ASPART 100 UNITS/ML 3 ML PEN SC SCH ×2 (17:56→21:39)
--- NOTE | 2020-03-02 19:07 | XRay Report ---
XR lumbar spine 2-3V CLINICAL HISTORY: pain s/p fall trauma. Pain. COMPARISON STUDY: No previous studies for comparison. FINDINGS: Mild degenerative disc change. Mild osteophytic formation. No evidence for compression defo rmity. No evidence for subluxation. IMPRESSION: No acute process. Mild degenerative change. ACT 112: Negative or not required by law. The above report was generated using voice recognition software. It may contain grammatical, syntax or spelling errors. Electronically signed by: Jose A Baker M.D. 03/02/2020 7:05 PM
[2020-03-02 22:31] LABS: Partial Thromboplastin Ratio 3.4
[2020-03-02 22:34] LABS: Partial Thromboplastin Time 94.3 Seconds (21.0-31.0)
[2020-03-03] MEDS: NYSTATIN 30 ML, DEXAMETHASONE CONC 3.75 MG, DiphenhydrAMINE Syrup 300 MG, ORA-SWEET SYR... PO SCH ×7 (01:26→23:46)
[2020-03-03 06:15] LABS: Appearance Urine Clear (Clear); Bilirubin Urine Negative (Negative); Blood Urine Negative (Negative); Color Urine Yellow; Glucose Urine UA Negative (Negative); Ketones Urine Negative (Negative); Leukocyte Esterase Urine Negative (Negative); Nitrite Urine Negative (Negative); Protein Urine Trace (Negative); Urobilinogen Urine Negative (Negative)
[2020-03-03 06:32] LABS: INR 1.8 (0.9-1.1); Partial Thromboplastin Ratio 3.7; Prothrombin Time 18.2 Seconds (9.0-12.0)
[2020-03-03 06:33] LABS: Bacteria Urine Negative (Negative); Epithelial Cell Urine 0-5 /lpf (0-5); RBC Urine 0-4 /hpf (0-4); WBC Urine 0-5 /hpf (0-5)
[2020-03-03 06:34] LABS: Hyaline Casts Urine 0-5 /lpf (0-5)
[2020-03-03 06:38] LABS: Albumin Level 3.1 gm/dl (3.4-5.0); BUN Creatinine Ratio 17.6 (10-20); Bilirubin Direct 0.8 mg/dl (0-0.2); Creatinine Clr Calc Pharmacy 24.6 ml/min; Est GFR (Non-African American) 16.4; Partial Thromboplastin Time 102.2 Seconds (21.0-31.0); Potassium 4.2 mmol/L (3.5-5.1)
[2020-03-03 06:40] LABS: Bilirubin,Total 1.8 mg/dl (0.2-1); Total Protein 6.5 gm/dl (6.4-8.2)
[2020-03-03 06:47] LABS: Estimated Average Glucose 197 mg/dl; Hemoglobin A1C 8.5 % (4.5-5.6)
[2020-03-03] MEDS: INSULIN ASPART 100 UNITS/ML 3 ML PEN SC SCH ×4 (08:02→22:37)
[2020-03-03] MEDS: ASPIRIN 81 MG ECTAB PO SCH (08:03)
[2020-03-03] MEDS: METOPROLOL SUCC 50MG EXT REL TAB PO SCH (08:03)
[2020-03-03 09:01] LABS: Folate (Folic Acid) 6.67 ng/ml (>5.38)
[2020-03-03] MEDS: HEPARIN SODIUM/DEXTROSE 25,000 UNITS/500 ML BAG IV SCH ×2 (12:38→14:49)
--- NOTE | 2020-03-03 12:51 | Nephrology Consultation ---
Date of Consultation March 03, 2020 Assessment & Plan (1) XAVIER (acute kidney injury): 64 Year old male with past medical history of hypertension, diabetes, stage III CKD, admitted to the hospital with XAVIER, generalized weakness and weight loss over last 1 month. Renal function has been relatively stable since admission, electrolyte acceptable. Remained nonoliguric. Urinalysis with trace proteinuria but no hematuria or pyuria. Unclear etiology for XAVIER, could be hemodynamically mediated with volume depletion with history of poor p.o. intake with concomitant use of diuretics and lisinopril. Urinalysis is not suggestive of any intrinsic renal pathology. History dense not suggestive of postrenal obstruction however cannot rule out the possibility. --will get renal ultrasound to exclude the possibility for postrenal obstruction. --start on gentle hydration and encourage p.o. intake --continue to hold CHARITO-inhibitor/ARB, diuretics, monitor renal function electrolyte with daily renal panel --unclear etiology for generalized weakness, poor p.o. intake and weight loss over last 1 month, chest x-ray and CT head was unremarkable, may need to consider CT abdomen pelvis without contrast for further evaluation. Recommend age-appropriate screening including colonoscopy and PSA Will follow Thank you for allowing me to participate in your patient's care. It was a pleasure to see David (2) Cardiomyopathy: (3) Hypertension: (4) Type 2 diabetes mellitus: History of Present Illness Reason for Consultation: Acute kidney injury with history of chronic kidney disease. Attending Physician: Angel Wagner, DO History of Present Illness David Wang is a 64-year-old gentleman with past medical history significant for hypertension, diabetes, cardiomyopathy, stage III CKD with variable creatinine, admitted to the hospital with generalized weakness, weight loss and XAVIER. Nephrology consult was requested to manage AK with CKD. Electronic medical records including labs and imaging are reviewed in detail during patient's visit. David has been having generalized weakness, shortness of breath with activity and weight loss of almost 40 pounds over last 1 month. He had outpatient lab done by his PCP 2 days ago and found to have AK with creatinine of 3.6 and advised to come to ED. Was admitted for further evaluation. On admission creatinine was 3.6 which has been staying pretty same over last 2 days. Electrolyte has been normal. Chest x-ray, CT head was unremarkable. Urinalysis was positive for trace proteinuria with no hematuria and had prior history of proteinuria at least 2 years ago. He reports voiding normally at home. P.o. intake has been poor as he did not have any appetite. Denied recent NSAID use. Was on lisinopril and Lasix at home which was discontinued on admission. Blood pressure initially was low but since had been stable. Initially received some IV fluid on admission. He reports thirst. P.o. intake remains poor. Has stage III CKD with variable creatinine from 1.5-2.0. Has low grade proteinuria. Denied any known family history of chronic kidney disease or end- stage renal disease. Ex-smoker more than 20 years ago, occasional alcohol use. 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 He has not been having regular health care. Diabetes seems to be poorly controlled, A1c has been around 8.5-9. Echo showed EF of 35 percent. Currently he denies any specific symptoms however feels thirsty. No shortness o f breath or chest pain. Allergies Allergy/AdvReac Type Severity Reaction Status Date / Time No Known Allergies Allergy Mild Verified 03/02/20 11:50 Home Medications Home Medications Medication Instructions Recorded Confirmed Type aspirin 81 mg tablet,delayed 81 mg PO DAILY #30 tab 11/29/19 03/02/20 History release amlodipine 10 mg tablet 5 mg PO BID #30 tab 02/28/20 03/02/20 Rx furosemide 40 mg tablet 40 mg PO DAILY PRN #30 tab 02/28/20 03/02/20 Rx ipratropium 20 mcg-albuterol 100 1 puff INHALATION QID PRN #4 gm 02/28/20 03/02/20 Rx mcg/actuation mist for inhalation lisinopril 10 mg tablet 10 mg PO DAILY #30 tab 02/28/20 03/02/20 Rx metoprolol succinate 200 mg 200 mg PO DAILY #30 tab 02/28/20 03/02/20 Rx tablet,extended release 24 hr tramadol 50 mg tablet 50 mg PO Q8H PRN #30 tab 02/28/20 03/02/20 Rx Patient History Medical History (Updated 03/02/20 @ 16:19 by Martínez Barrett) Atrial fibrillation (Acute) Back pain Cardiomyopathy CKD (chronic kidney disease) Elevated LFTs H/O: CVA (cerebrovascular accident) (Resolved) Hypertension (Chronic) Left bundle branch block (LBBB) (Acute) Pulmonary hypertension Tobacco abuse Type 2 diabetes mellitus (Chronic) Weight loss Surgical History History of facial surgery Family History Father Lymphoma Myocardial infarction Mother Lung cancer Social History Preferred Language: Yakut Communication Ability: Effective Test Borer Required: No Beliefs That Will Affect Care: None marital status: Single Current Living Situation: Alone Other Information That Helps Us Care for You: No Feels Safe at Home: Yes Safety Concerns: Feels Safe At This Time Smoking Status: Former smoker Tobacco Type: cigarettes ; Age Started Using Tobacco: 14 ; Age Quit Using Tobacco: 48 ; Cigarettes Per Day: 10 ; Do You Dip or Chew Tobacco: No ; Second Hand Exposure: No ; Tobacco Cessation Education Requested by Patient: No Hx Alcohol Use: Yes Alcohol type: beer Hx Substance Use: No Review of Systems Review of Systems: All systems reviewed & are unremarkable except as noted in HPI & below Physical Exam Constitutional: WD/WN, vitals as above + ill appearing Eyes: PERRL, conjunctivae normal, anicteric sclerae ENMT: external ear and nose normal, oropharynx normal Neck: trachea midline Respiratory: normal respiratory effort, lungs clear to auscultation Cardiovascular: RRR, no murmur, no edema Gastrointestinal (Abdomen): Inspection/Auscultation: abdomen normal to inspection Percussion/Palpation: abdomen soft; abdomen nontender, no guarding and abdomen not rigid Musculoskeletal: Extremities: extremities normal to inspection Skin: no rashes, warm and dry Neurologic: moves all extremities and awake; no focal motor deficits and not confused Psychiatric: A+Ox3, euthymic affect Results & Data Vital Signs (Past 12 Hours) Vital Signs Temp Pulse Pulse Resp BP BP Pulse Ox 03/03/20 11:32 36.3 C L 84 20 142/87 H 96 03/03/20 08:57 82 03/03/20 07:08 36.4 C L 93 H 20 112/83 91 03/03/20 04:11 36.4 C L 84 20 121/87 95 PG Care Time/CCT Total # of Minutes Spent Total Time Spent with Patient: Total time spent is greater than 50% in coordination of care (as documented) at patient's floor/unit and/or counseling patient: Coding Level of Care Code 38550 Inpt Consult Level 5 Diagnoses XAVIER (acute kidney injury) N17.9 Cardiomyopathy I42.9 Hypertension I10 Type 2 diabetes mellitus E11.9
[2020-03-03 14:22] LABS: Partial Thromboplastin Ratio 2.7
[2020-03-03 14:25] LABS: Partial Thromboplastin Time 74.4 Seconds (21.0-31.0)
--- NOTE | 2020-03-03 14:58 | Hospitalist Progress Note ---
Date of Service March 03, 2020 Assessment & Plan (1) Acute confusion: improved mentation today, answering some questions appropriately no obvious signs of infection electrolytes stable renal function worsening, seems like most logical cause for some degree of confusion continue to watch closely (2) XAVIER (acute kidney injury): Multifactorial as patient is hyportensive, appears dry and is on multiple nephrotoxic medications. Hold lisinopril and lasix. Hold amlodipine. continue gentle hydration today check renal US to rule out obstruction instructed RN to follow UO closely, patient has a bedside urinal, he knows to use this consulted nephrology, discussed with Dr. Purdy, she will follow (3) Type 2 diabetes mellitus: Patient currently not taking any medications. Metformin was previously held due to elevated creatinine use Novolog SS, diabetic diet at home he says he just eats [place] bars (4) Weight loss: Patient reporting loss of 40 pounds over last couple of months. Reports food is not appetizing to him. There is ulcer on roof of mouth. Will give magic mouth wash. Have speech therapy eval for dysphagia. PSA is normal. No masses on head ct or cxr. Would likely need ct chest / abd and pelvis when creatinine improves. reviewed record, he has not had any imaging in the past year (5) Elevated LFTs: mildly elevated. coming down, continue to follow (6) Atrial fibrillation: Currently rate controlled. Continue metoprolol Place patient on heparin bridge as he is subtherapeutic. Coumadin 2mg daily. Patient was noncompliant in past. Plan was to change to NOAC. Due to renal function and lack of insurance patient not be candidate for NOAC. will need to discuss further with patient, may not want to use any anticoagulation if he is non-compliant (7) Back pain: Patient reports secondary to fall. Check lumbar xray - no fracture or other abnormality (8) Hypoxia: Patient with suspected, but no formal diagnosis of COPD. Continue combivent. Titrate o2 Pulm htn likely contributing. Patient will eventually need right heart cath. Patient was discharged with nocturnal oxygen last admission but has not been using. (9) Hypertension: Hold amlodipine and lisinopril due to hypotension and acute renal failure. Will continue to monitor, BP is stable today (10) Cardiomyopathy: Will likely need further workup including left heart cath. Patient with no complaints of chest pain at this time. Kidney function would also prohibit cath at this time. (11) CKD (chronic kidney disease): stage 3; baseline Cr about 1.5/1.6 (12) Pulmonary hypertension: (13) Tobacco abuse: (14) Severe protein-calorie malnutrition: Admission and Anticipated Discharge Date Admission Date: March 02, 2020 Subjective patient awake this morning, admits that he does not remember me as I took care of him in November he says he is not short of breath, feels better, hopes to go home tomorrow I discussed with him that he is very ill, his Cr is worse, I will need nephrology to see him reviewing the record, it seems that clinically he has only declined further since his diagnosis of afib, cardiomyopathy and pulmonary HTN in November he is only eating [place] bars at home, says that all other food tastes horrible his breathing is stable he remembers that his brother drove up from [place] to bring him here to the hospital spoke with Dr. Purdy, she will see the patient, will order some gentle hydration, check renal US reviewed labs, Cr up to 3.6 from 3.4, he is making a little urine, electrolytes stable Review of Systems Review of Systems: All systems reviewed & are unremarkable except as noted in HPI & below Constitutional: + fatigue and + weakness; no fever, no chills and no sweats Respiratory: + dyspnea on exertion; no cough and no dyspnea Cardiovascular: no chest pain, no palpitations, no syncope and no edema Gastrointestinal: + early satiety; no abdominal pain, no nausea, no vomiting, no constipation and no diarrhea/loose stools Genitourinary: no dysuria Physical Exam Constitutional: well developed, well nourished and + overweight; no acute distress Eyes: PERRL, conjunctivae normal, anicteric sclerae ENMT: external ear and nose normal, oropharynx normal Neck: trachea midline, no thyromegaly Respiratory: normal respiratory effort, lungs clear to auscultation Cardiovascular: Rate/Rhythm: regular rate and + irregularly irregular Heart Sounds: normal S1 and normal S2; no murmur Extremities: normal capillary refill; no edema Gastrointestinal (Abdomen): normal bowel sounds, soft, nontender, no hepatosplenomegaly Musculoskeletal: no cyanosis or clubbing, extremities motor strength 5/5 Skin: no rashes, warm and dry Neurologic: patellar DTR's 2+ bilat, sensation intact and PERRL, EOMI, accommodation nl, no face palsy, no dysarthria Psychiatric: Orientation: oriented to person and oriented to place; + not alert (sleepy) and + not oriented to time Lymphatic: no cervical or axillary lymphadenopathy Results & Data Results & Data ([facility]) Vital Signs (Past 12 Hours) Vital Signs Temp Pulse Pulse Resp BP BP Pulse Ox 03/03/20 14:48 83 03/03/20 11:32 36.3 C L 84 20 142/87 H 96 03/03/20 08:57 82 03/03/20 07:08 36.4 C L 93 H 20 112/83 91 03/03/20 04:11 36.4 C L 84 20 121/87 95 Laboratory Results Laboratory Results - last 24 hr 03/02/20 03/02/20 03/02/20 16:09 16:55 20:16 PT INR APTT PTT Ratio Sodium 135 L Potassium 4.4 D Chloride 101 Carbon Dioxide 24 Anion Gap 10.0 BUN 72 H Creatinine 3.34 H Est Cr Clr Drug Dosing 26.5 Est GFR ( Amer) 21.1 Est GFR (Non-Af Amer) 18.2 BUN/Creatinine Ratio 21.5 H Glucose 127 H POC Glucose 115 H 131 H Estimat Average Glucose Hemoglobin A1c Calcium 9.3 Total Bilirubin Direct Bilirubin AST ALT Alkaline Phosphatase Total Protein Albumin Vitamin B12 Folate Specimen Hemolysis Urine Color Urine Appearance Urine pH Ur Specific [place] Urine Protein Urine Glucose (UA) Urine Ketones Urine Blood Urine Nitrite Urine Bilirubin Urine Urobilinogen Ur Leukocyte Esterase Urine RBC Urine WBC Ur Epithelial Cells Urine Bacteria Hyaline Casts Ur Random Creatinine Ur Random Sodium 03/02/20 03/03/20 03/03/20 21:55 05:50 05:50 PT INR APTT 94.3 H* PTT Ratio 3.4 Sodium Potassium Chloride Carbon Dioxide Anion Gap BUN Creatinine Est Cr Clr Drug Dosing Est GFR ( Amer) Est GFR (Non-Af Amer) BUN/Creatinine Ratio Glucose POC Glucose Estimat Average Glucose Hemoglobin A1c Calcium Total Bilirubin Direct Bilirubin AST ALT Alkaline Phosphatase Total Protein Albumin Vitamin B12 Folate Specimen Hemolysis Urine Color Yellow Urine Appearance Clear Urine pH 5.0 Ur Specific [place] 1.020 Urine Protein Trace H Urine Glucose (UA) Negative Urine Ketones Negative Urine Blood Negative Urine Nitrite Negative Urine Bilirubin Negative Urine Urobilinogen Negative Ur Leukocyte Esterase Negative Urine RBC 0-4 Urine WBC 0-5 Ur Epithelial Cells 0-5 Urine Bacteria Negative Hyaline Casts 0-5 Ur Random Creatinine 167.0 Ur Random Sodium 03/03/20 03/03/20 03/03/20 05:50 05:58 05:58 PT INR APTT PTT Ratio Sodium 133 L Potassium 4.2 Chloride 101 Carbon Dioxide 23 Anion Gap 9.0 BUN 64 H Creatinine 3.63 H Est Cr Clr Drug Dosing 24.6 Est GFR ( Amer) 19.0 Est GFR (Non-Af Amer) 16.4 BUN/Creatinine Ratio 17.6 Glucose 135 H POC Glucose Estimat Average Glucose 197 Hemoglobin A1c 8.5 H Calcium 9.0 Total Bilirubin 1.8 H Direct Bilirubin 0.8 H AST 59 H ALT 57 Alkaline Phosphatase 85 Total Protein 6.5 Albumin 3.1 L Vitamin B12 Folate Specimen Hemolysis Urine Color Urine Appearance Urine pH Ur Specific [place] Urine Protein Urine Glucose (UA) Urine Ketones Urine Blood Urine Nitrite Urine Bilirubin Urine Urobilinogen Ur Leukocyte Esterase Urine RBC Urine WBC Ur Epithelial Cells Urine Bacteria Hyaline Casts Ur Random Creatinine Ur Random Sodium 17 03/03/20 03/03/20 03/03/20 05:58 05:58 11:31 PT 18.2 H INR 1.8 H APTT 102.2 H* PTT Ratio 3.7 Sodium Potassium Chloride Carbon Dioxide Anion Gap BUN Creatinine Est Cr Clr Drug Dosing Est GFR ( Amer) Est GFR (Non-Af Amer) BUN/Creatinine Ratio Glucose POC Glucose 148 H Estimat Average Glucose Hemoglobin A1c Calcium Total Bilirubin Direct Bilirubin AST ALT Alkaline Phosphatase Total Protein Albumin Vitamin B12 1571 H Folate 6.67 Specimen Hemolysis Urine Color Urine Appearance Urine pH Ur Specific [place] Urine Protein Urine Glucose (UA) Urine Ketones Urine Blood Urine Nitrite Urine Bilirubin Urine Urobilinogen Ur Leukocyte Esterase Urine RBC Urine WBC Ur Epithelial Cells Urine Bacteria Hyaline Casts Ur Random Creatinine Ur Random Sodium 03/03/20 13:55 PT INR APTT 74.4 H* PTT Ratio 2.7 Sodium Potassium Chloride Carbon Dioxide Anion Gap BUN Creatinine Est Cr Clr Drug Dosing Est GFR ( Amer) Est GFR (Non-Af Amer) BUN/Creatinine Ratio Glucose POC Glucose Estimat Average Glucose Hemoglobin A1c Calcium Total Bilirubin Direct Bilirubin AST ALT Alkaline Phosphatase Total Protein Albumin Vitamin B12 Folate Specimen Hemolysis Urine Color Urine Appearance Urine pH Ur Specific [place] Urine Protein Urine Glucose (UA) Urine Ketones Urine Blood Urine Nitrite Urine Bilirubin Urine Urobilinogen Ur Leukocyte Esterase Urine RBC Urine WBC Ur Epithelial Cells Urine Bacteria Hyaline Casts Ur Random Creatinine Ur Random Sodium Medications Administered Current Inpatient Medications Albuterol (Combivent Respimat) 1 puffs INH QID PRN PRN Reason: shortness of breath or wheezing Stop: 04/01/20 14:39 Aspirin (Ecotrin Ectab) 81 mg PO DAILY [facility] Stop: 04/02/20 08:59 Last Admin: 03/03/20 08:03 Dose: 81 mg Documented by: Nystatin 30 ml/ Dexamethasone 3.75 mg/ Diphenhydramine HCl 300 mg/ Sucrose 45 ml/Microcrystalline Cellulose 45 ml/ BARCODE IDENTIFIER 1 ea 0 ml PO Q4 [facility] Stop: 04/01/20 15:59 Last Admin: 03/03/20 12:37 Dose: Not Given Documented by: Dextrose (Dextrose 50%) 25 - 50 ml IV UD PRN; Protocol PRN Reason: Hypoglycemia Protocol Stop: 04/01/20 14:59 Glucagon (Glucagen) 1 mg IM UD PRN; Protocol PRN Reason: Hypoglycemia Protocol Stop: 04/01/20 14:59 Glucose (Glucose 40%) 15 - 30 gm PO UD PRN; Protocol PRN Reason: Hypoglycemia Protocol Stop: 04/01/20 14:59 Glucose (Dex4 Glucose) 4 - 8 tabs PO UD PRN; Protocol PRN Reason: Hypoglycemia Protocol Stop: 04/01/20 14:59 Heparin Sodium/Dextrose (Heparin Sodium/Dextrose) 25,000 units in 500 mls @ 22 mls/hr IV .[id number] [facility]; Protocol Stop: 04/01/20 15:59 Last Admin: 03/03/20 14:49 Dose: Not Given Documented by: Insulin Aspart (Novolog Flexpen) 0 units SC ACHS [facility] Stop: 04/01/20 16:29 Last Admin: 03/03/20 12:36 Dose: 1 units Documented by: Metoprolol Succinate (Toprol Xl) 200 mg PO DAILY [facility] Stop: 04/02/20 08:59 Last Admin: 03/03/20 08:03 Dose: 200 mg Documented by: Miscellaneous (Carbohydrates For Hypoglycemia) 15 - 30 gm PO UD PRN PRN Reason: Hypoglycemia Treatment Stop: 04/01/20 14:59 Ondansetron HCl (Zofran) 4 mg IV Q6H PRN PRN Reason: Nausea Stop: 04/01/20 14:39 Polyethylene Glycol (Miralax Powder Packet) 17 gm PO DAILY PRN PRN Reason: Constipation Stop: 04/01/20 14:39 Warfarin Sodium (Coumadin) 2 mg PO DAILY@1600 YESSENIA Stop: 04/01/20 15:59 Last Admin: 03/02/20 16:58 Dose: 2 mg Documented by: PG Care Time/CCT Total # of Minutes Spent Total Time Spent with Patient: Total time spent is greater than 50% in coordination of care (as documented) at patient's floor/unit and/or counseling patient: Coding Level of Care Code 07442 Subseq Hosp Care Lvl 3 Diagnoses Acute confusion R41.0 XAVIER (acute kidney injury) N17.9 Type 2 diabetes mellitus E11.9 Weight loss R63.4 Elevated LFTs R79.89 Atrial fibrillation I48.91 Atrial fibrillation type: unspecified Back pain M54.9 Hypoxia R09.02 Hypertension I10 Cardiomyopathy I42.9 CKD (chronic kidney disease) N18.9 Pulmonary hypertension I27.20 Tobacco abuse Z72.0 Severe protein-calorie malnutrition E43 (1) Atrial fibrillation Atrial fibrillation type: unspecified Qualified Code(s): I48.91 - Unspecified atrial fibrillation
[2020-03-03] MEDS: WARFARIN SOD 2 MG TAB PO SCH (17:13)
[2020-03-03 20:47] LABS: Partial Thromboplastin Ratio 2.4
[2020-03-04 03:33] LABS: Partial Thromboplastin Ratio 2.4
[2020-03-04 03:42] LABS: Partial Thromboplastin Time 66.9 Seconds (21.0-31.0)
[2020-03-04] MEDS: NYSTATIN 30 ML, DEXAMETHASONE CONC 3.75 MG, DiphenhydrAMINE Syrup 300 MG, ORA-SWEET SYR... PO SCH ×5 (04:46→20:24)
[2020-03-04] MEDS: INSULIN ASPART 100 UNITS/ML 3 ML PEN SC SCH ×4 (08:14→20:24)
[2020-03-04] MEDS: HEPARIN SODIUM/DEXTROSE 25,000 UNITS/500 ML BAG IV SCH (08:14)
[2020-03-04] MEDS: ASPIRIN 81 MG ECTAB PO SCH (08:15)
[2020-03-04] MEDS ORDERED: SODIUM CHLORIDE 0.9% 500 ML IV SCH (08:15)
[2020-03-04] MEDS: METOPROLOL SUCC 50MG EXT REL TAB PO SCH (08:15)
[2020-03-04 08:48] LABS: Hematocrit (blood only) 47.8 % (42-52); Hemoglobin 16.2 g/dL (14.0-18.0); Mean Corpuscular Hemoglobin 29.6 pg (25-34); Mean Corpuscular Hgb Conc 33.9 g/dL (32-36); Mean Corpuscular Volume 87.2 fL (80-100); Mean Platelet Volume 11.8 fL (7.4-10.4); Platelet Count 191 K/uL (130-400); RDW Coefficient of Variation 17.7 % (11.5-14.5); RDW Standard Deviation 53.9 fL (36.4-46.3); Red Blood Count 5.48 M/uL (4.7-6.1); White Blood Count 10.24 K/uL (4.8-10.8)
[2020-03-04 09:14] LABS: BUN Creatinine Ratio 17.9 (10-20); Creatinine Clr Calc Pharmacy 23.6 ml/min; Est GFR (Non-African American) 15.5; Phosphorus 4.1 mg/dl (2.5-4.9); Potassium 3.9 mmol/L (3.5-5.1)
--- NOTE | 2020-03-04 10:58 | Ultrasound Report ---
US renal/blad retro comp HISTORY: 64 years-old Male celena acute kidney injury COMPARISON: None multiple real-time sonographic images of the kidneys and urinary bladder TECHNIQUE: Assessing grayscale appearance and color flow FINDINGS: Study is limited secondary to obscuring bowel gas. The right kidney measures 11.0 cm in length and is unremarkable without renal calculi, hydronephrosis or suspicious mass lesion. Left kidney measures 11.1 cm in length and is also unremarkable without r enal calculi, hydronephrosis or suspicious mass lesion. Urinary bladder is partially decompressed. No ureteral jets identified. IMPRESSION: Unremarkable renal ultrasound. ACT 112: Negative or not required by law. The above report was generated using voice recognition software. It may contain grammatical, syntax o r spelling errors. Electronically signed by: Osmin Shirley M.D. 03/04/2020 10:57 AM
--- NOTE | 2020-03-04 11:55 | Hospitalist Progress Note ---
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 continue to hold lisinopril and lasix. continue gentle hydration for another 24 hours not making much urine, only urinated once in 24 hours, essentially oliguric check renal US to rule out obstruction Dr. Purdy following discussed HD with patient on 03/04, he said "sure, why not" concerned about his capacity to truly understand updated his brother Ivan about worsening renal function, he is designated to help make decisions please keep him updated with any changes will consult palliative care to help determine goals of care (3) Type 2 diabetes mellitus: Patient currently not taking any medications. Metformin was previously held due to elevated creatinine use Novolog SS, diabetic diet at home he says he just eats [place] bars no hypoglycemia per his brother, he was not making any effort to manage his DM at home (4) Weight loss: Patient reporting loss of 40 pounds over last couple of months. Reports food is not appetizing to him. There is ulcer on roof of mouth. Will continue magic mouth wash. Have speech therapy eval for dysphagia. PSA is normal. No masses on head ct or cxr. Would likely need ct chest / abd and pelvis when creatinine improves unsure Cr will improve for CT imaging, would not change overall prognosis reviewed record, he has not had any imaging in the past year (5) Elevated LFTs: mildly elevated. coming down, continue to follow (6) Atrial fibrillation: Currently rate controlled. Continue metoprolol Place patient on heparin bridge as he is subtherapeutic. Coumadin 2mg daily. Patient was noncompliant in past. Plan was to change to NOAC. Due to renal function and lack of insurance patient not be candidate for NOAC. will need to discuss further with patient, may not want to use any anticoagulation if he is non-compliant (7) Back pain: Patient reports secondary to fall. Check lumbar xray - no fracture or other abnormality (8) Hypoxia: Patient with suspected, but no formal diagnosis of COPD. Continue combivent. Titrate o2 Pulm htn likely contributing. Patient will eventually need right heart cath. Patient was discharged with nocturnal oxygen last admission but has not been using. (9) Hypertension: Hold amlodipine and lisinopril due to hypotension and acute renal failure. Will continue to monitor, BP is stable today off of medications (10) Cardiomyopathy: cardiology had discussed further workup including left heart cath when they saw him in November 2019 Kidney function would prohibit cath at this time. (11) CKD (chronic kidney disease): stage 3; baseline Cr about 1.5/1.6 Cr up to 3.8 today (12) Pulmonary hypertension: (13) Tobacco abuse: (14) Severe protein-calorie malnutrition: Admission and Anticipated Discharge Date Admission Date: March 02, 2020 Subjective patient remains confused he is awake and alert, responds appropriately, but does not grasp the gravity of his illness he wants to get up and sit at edge of bed even though he has been instructed numerous times he is too weak he wants to know if he can go home tomorrow reviewed labs, Cr getting worse, up to 3.8, only urinated once yesterday according to RN, so he is oliguric electrolytes stable continue IV fluids another 24 hours per nephrology, follow up on renal US I asked the patient if he would want HD if his kidneys got worse, he said "sure, give it a try, why not" he could not understand the risks, benefits of going down that course of treatment I called his brother Ivan who lives down in [place] but has been helping take care of him intermittently he says that the patient has NOT been compliant with his medications his home is in disrepair, it is dirty, cluttered, there is no way the patient can live there, he would anticipate he needs SNF the patient is profoundly weak, unsteady, unsafe to live alone very nandini with Ivan about the patient's condition, just diagnosed with cardiomyopathy, severe pulmonary HTN in November, now renal function deteriorating quickly discussed that dialysis would NOT be a good option, unsure it would provide any quality of life, Ivan is going to think about whether or not it is appropriate we discussed code status, he says that the patient should be DNR, that the patient has told him in the past he would NOT want CPR or other resuscitation Ivan is next of kin, he is getting paper work for official POA spent 25 minutes on the phone with him I will ask palliative care to see patient tomorrow Review of Systems Review of Systems: All systems reviewed & are unremarkable except as noted in HPI & below Constitutional: + fatigue and + weakness; no fever, no chills and no sweats Respiratory: + dyspnea and + dyspnea on exertion; no cough and no wheezing Cardiovascular: no chest pain and no edema Gastrointestinal: no abdominal pain, no nausea, no vomiting, no constipation and no diarrhea/loose stools Physical Exam Constitutional: well developed, well nourished and + overweight; no acute distress Eyes: PERRL, conjunctivae normal, anicteric sclerae ENMT: external ear and nose normal, oropharynx normal Neck: trachea midline, no thyromegaly Respiratory: normal respiratory effort, lungs clear to auscultation Cardiovascular: Rate/Rhythm: regular rate and + irregularly irregular Heart Sounds: normal S1 and normal S2; no murmur Extremities: normal capillary refill; no edema Gastrointestinal (Abdomen): normal bowel sounds, soft, nontender, no hepatosplenomegaly Musculoskeletal: no cyanosis or clubbing, extremities motor strength 5/5 Skin: no rashes, warm and dry Neurologic: patellar DTR's 2+ bilat, sensation intact and PERRL, EOMI, accommodation nl, no face palsy, no dysarthria Psychiatric: Orientation: oriented to person and oriented to place; + not alert (sleepy) and + not oriented to time Lymphatic: no cervical or axillary lymphadenopathy Results & Data Results & Data ([facility]) Vital Signs (Past 12 Hours) Vital Signs Temp Pulse Pulse Resp BP Pulse Ox 03/04/20 08:03 36.3 C L 77 20 118/83 92 03/04/20 07:10 84 03/04/20 04:57 81 20 120/91 98 03/04/20 04:30 37.1 C Laboratory Results Laboratory Results - last 24 hr 03/03/20 03/03/20 03/03/20 13:55 16:18 20:03 WBC RBC Hgb Hct MCV MCH MCHC RDW Std Deviation RDW Coeff of Liss Plt Count MPV APTT 74.4 H* PTT Ratio 2.7 Sodium Potassium Chloride Carbon Dioxide Anion Gap BUN Creatinine Est Cr Clr Drug Dosing Est GFR ( Amer) Est GFR (Non-Af Amer) BUN/Creatinine Ratio Glucose POC Glucose 137 H 153 H Calcium Phosphorus Magnesium 03/03/20 03/04/20 03/04/20 20:21 02:59 04:24 WBC RBC Hgb Hct MCV MCH MCHC RDW Std Deviation RDW Coeff of Liss Plt Count MPV APTT 68.0 H* 66.9 H* PTT Ratio 2.4 2.4 Sodium Potassium Chloride Carbon Dioxide Anion Gap BUN Creatinine Est Cr Clr Drug Dosing Est GFR ( Amer) Est GFR (Non-Af Amer) BUN/Creatinine Ratio Glucose POC Glucose 105 H Calcium Phosphorus Magnesium 03/04/20 03/04/20 03/04/20 07:24 08:42 08:42 WBC 10.24 RBC 5.48 Hgb 16.2 Hct 47.8 MCV 87.2 MCH 29.6 MCHC 33.9 RDW Std Deviation 53.9 H RDW Coeff of Liss 17.7 H Plt Count 191 MPV 11.8 H APTT PTT Ratio Sodium 137 Potassium 3.9 Chloride 100 Carbon Dioxide 24 Anion Gap 13.0 H BUN 68 H Creatinine 3.81 H Est Cr Clr Drug Dosing 23.6 Est GFR ( Amer) 18.0 Est GFR (Non-Af Amer) 15.5 BUN/Creatinine Ratio 17.9 Glucose 111 H POC Glucose 105 H Calcium 9.0 Phosphorus 4.1 Magnesium 2.0 03/04/20 03/04/20 10:58 11:27 WBC RBC Hgb Hct MCV MCH MCHC RDW Std Deviation RDW Coeff of Liss Plt Count MPV APTT Pending PTT Ratio Pending Sodium Potassium Chloride Carbon Dioxide Anion Gap BUN Creatinine Est Cr Clr Drug Dosing Est GFR ( Amer) Est GFR (Non-Af Amer) BUN/Creatinine Ratio Glucose POC Glucose 110 H Calcium Phosphorus Magnesium Medications Administered Current Inpatient Medications Albuterol (Combivent Respimat) 1 puffs INH QID PRN PRN Reason: shortness of breath or wheezing Stop: 04/01/20 14:39 Aspirin (Ecotrin Ectab) 81 mg PO DAILY YESSENIA Stop: 04/02/20 08:59 Last Admin: 03/04/20 08:15 Dose: 81 mg Documented by: Nystatin 30 ml/ Dexamethasone 3.75 mg/ Diphenhydramine HCl 300 mg/ Sucrose 45 ml/Microcrystalline Cellulose 45 ml/ BARCODE IDENTIFIER 1 ea 0 ml PO Q4 YESSENIA Stop: 04/01/20 15:59 Last Admin: 03/04/20 08:15 Dose: Not Given Documented by: Dextrose (Dextrose 50%) 25 - 50 ml IV UD PRN; Protocol PRN Reason: Hypoglycemia Protocol Stop: 04/01/20 14:59 Glucagon (Glucagen) 1 mg IM UD PRN; Protocol PRN Reason: Hypoglycemia Protocol Stop: 04/01/20 14:59 Glucose (Glucose 40%) 15 - 30 gm PO UD PRN; Protocol PRN Reason: Hypoglycemia Protocol Stop: 04/01/20 14:59 Glucose (Dex4 Glucose) 4 - 8 tabs PO UD PRN; Protocol PRN Reason: Hypoglycemia Protocol Stop: 04/01/20 14:59 Heparin Sodium/Dextrose (Heparin Sodium/Dextrose) 25,000 units in 500 mls @ 18 mls/hr IV .Q24H [facility]; Protocol Stop: 04/01/20 15:59 Last Admin: 03/04/20 08:14 Dose: 900 units/hr, 18 mls/hr Documented by: Sodium Chloride (Nss) 500 mls @ 80 mls/hr IV .Q6H15M [facility] Stop: 03/04/20 14:29 Last Admin: 03/04/20 08:38 Dose: 80 mls/hr Documented by: Insulin Aspart (Novolog Flexpen) 0 units SC ACHS [facility] Stop: 04/01/20 16:29 Last Admin: 03/04/20 08:14 Dose: 4 units Documented by: Metoprolol Succinate (Toprol Xl) 200 mg PO DAILY [facility] Stop: 04/02/20 08:59 Last Admin: 03/04/20 08:15 Dose: 200 mg Documented by: Miscellaneous (Carbohydrates For Hypoglycemia) 15 - 30 gm PO UD PRN PRN Reason: Hypoglycemia Treatment Stop: 04/01/20 14:59 Ondansetron HCl (Zofran) 4 mg IV Q6H PRN PRN Reason: Nausea Stop: 04/01/20 14:39 Polyethylene Glycol (Miralax Powder Packet) 17 gm PO DAILY PRN PRN Reason: Constipation Stop: 04/01/20 14:39 Warfarin Sodium (Coumadin) 2 mg PO DAILY@1600 YESSENIA Stop: 04/01/20 15:59 Last Admin: 03/03/20 17:13 Dose: 2 mg Documented by: PG Care Time/CCT Total # of Minutes Spent Total Time Spent: 40 Total Time Spent with Patient: Total time spent is greater than 50% in coordination of care (as documented) at patient's floor/unit and/or counseling patient: spent 25 minutes on phone with patient's brother Ivan Coding Level of Care Code 52939 Subseq Hosp Care Lvl 3 Diagnoses Acute confusion R41.0 XAVIER (acute kidney injury) N17.9 Type 2 diabetes mellitus E11.9 Weight loss R63.4 Elevated LFTs R79.89 Atrial fibrillation I48.91 Atrial fibrillation type: unspecified Back pain M54.9 Hypoxia R09.02 Hypertension I10 Cardiomyopathy I42.9 CKD (chronic kidney disease) N18.9 Pulmonary hypertension I27.20 Tobacco abuse Z72.0 Severe protein-calorie malnutrition E43 (1) Atrial fibrillation Atrial fibrillation type: unspecified Qualified Code(s): I48.91 - Unspecified atrial fibrillation
[2020-03-04 12:06] LABS: Partial Thromboplastin Time 55.1 Seconds (21.0-31.0)
--- NOTE | 2020-03-04 12:16 | Nephrology Progress Note ---
Date of Service March 04, 2020 Assessment & Plan (1) XAVIER (acute kidney injury): 64 Year old male with past medical history of hypertension, diabetes, stage III CKD, admitted to the hospital with XAVIER, generalized weakness and weight loss over last 1 month. Renal function has been relatively stable since admission, electrolyte acceptable. Remained nonoliguric. Urinalysis with trace proteinuria but no hematuria or pyuria. Unclear etiology for XAVIER, could be hemodynamically mediated with volume depletion with history of poor p.o. intake with concomitant use of diuretics and lisinopril. Urinalysis is not suggestive of any intrinsic renal pathology. History dense not suggestive of postrenal obstruction however cannot rule out the possibility. Renal function continues to worsen, electrolyte, BP , volume status acceptable. --will get renal ultrasound to exclude the possibility for postrenal obstruction. --continue IV fluid for now. --continue to hold CHARITO-inhibitor/ARB, diuretics, monitor renal function electrolyte with daily renal panel --unclear etiology for generalized weakness, poor p.o. intake and weight loss over last 1 month, chest x-ray and CT head was unremarkable, may need to consider CT abdomen pelvis without contrast for further evaluation. Recommend age-appropriate screening including colonoscopy and PSA Will follow Admission and Anticipated Discharge Date Admission Date: March 02, 2020 Clinton Hernandez was off floor for USG. Discussed with his nurse, has been otherwise doing well, denied any SOB or CP. Appetite has been decent. Non oliguric. Renal function slightly worsened. Results & Data ([facility]) Vital Signs (Past 12 Hours) Vital Signs Temp Pulse Pulse Resp BP Pulse Ox 03/04/20 12:03 36.4 C L 78 20 123/87 92 03/04/20 08:03 36.3 C L 77 20 118/83 92 03/04/20 07:10 84 03/04/20 04:57 81 20 120/91 98 03/04/20 04:30 37.1 C PG Care Time/CCT Total # of Minutes Spent Total Time Spent with Patient: Total time spent is greater than 50% in coordination of care (as documented) at patient's floor/unit and/or counseling patient: Coding Level of Care Code 02263 Subseq Hosp Care Lvl 2 Diagnoses XAVIER (acute kidney injury) N17.9
[2020-03-04] MEDS: SODIUM CHLORIDE 0.9% 1000ML 1,000 ML IV SCH (15:05)
[2020-03-04] MEDS: WARFARIN SOD 2 MG TAB PO SCH (16:37)
[2020-03-05] MEDS: NYSTATIN 30 ML, DEXAMETHASONE CONC 3.75 MG, DiphenhydrAMINE Syrup 300 MG, ORA-SWEET SYR... PO SCH ×7 (00:06→23:43)
[2020-03-05] MEDS: SODIUM CHLORIDE 0.9% 1000ML 1,000 ML IV SCH (03:17)
[2020-03-05 06:28] LABS: Hemoglobin 16.2 g/dL (14.0-18.0); Mean Corpuscular Hemoglobin 29.6 pg (25-34); Mean Corpuscular Hgb Conc 33.8 g/dL (32-36); Mean Corpuscular Volume 87.6 fL (80-100); Mean Platelet Volume 11.4 fL (7.4-10.4); Platelet Count 177 K/uL (130-400); RDW Coefficient of Variation 17.5 % (11.5-14.5); Red Blood Count 5.48 M/uL (4.7-6.1); White Blood Count 10.31 K/uL (4.8-10.8)
[2020-03-05 06:47] LABS: Partial Thromboplastin Ratio 2.1
[2020-03-05 06:53] LABS: Partial Thromboplastin Time 57.3 Seconds (21.0-31.0)
[2020-03-05 07:05] LABS: BUN Creatinine Ratio 18.2 (10-20); Est GFR (African American) 18.1; Est GFR (Non-African American) 15.6; Potassium 4.4 mmol/L (3.5-5.1)
[2020-03-05] MEDS: INSULIN ASPART 100 UNITS/ML 3 ML PEN SC SCH ×4 (09:06→21:27)
[2020-03-05] MEDS: HEPARIN SODIUM/DEXTROSE 25,000 UNITS/500 ML BAG IV SCH (09:07)
[2020-03-05] MEDS: ASPIRIN 81 MG ECTAB PO SCH (09:09)
[2020-03-05] MEDS: METOPROLOL SUCC 50MG EXT REL TAB PO SCH (09:09)
--- NOTE | 2020-03-05 11:34 | Nephrology Progress Note ---
Date of Service March 05, 2020 Assessment & Plan (1) XAVIER (acute kidney injury): 64 Year old male with past medical history of hypertension, diabetes, stage III CKD, admitted to the hospital with XAVIER, generalized weakness and weight loss over last 1 month. Renal function has been relatively stable since admission, electrolyte acceptable. Remained nonoliguric. Urinalysis with trace proteinuria but no hematuria or pyuria. Unclear etiology for XAVIER, could be hemodynamically mediated with volume depletion with history of poor p.o. intake with concomitant use of diuretics and lisinopril. Urinalysis is not suggestive of any intrinsic renal pathology. History dense not suggestive of postrenal obstruction however cannot rule out the possibility. Renal function has been relatively stable without any changes, creatinine has been stable around 3.6-2 in 3.8, electrolyte acceptable. Volume status, blood pressure stable, decent urine output. Renal ultrasound showed otherwise normal size kidney without any hydronephrosis. --discontinue IV fluid, encourage p.o. intake and monitor renal function daily renal panel poor. As there is no change in renal function with IV hydration, blood pressure has been acceptable, would avoid IV fluid at this time with patient's history of low EF. --continue to hold CHARITO-inhibitor/ARB, diuretics, monitor renal function electrolyte with daily renal panel --no acute indication for dialysis at this time, hopefully renal function will start improved. --hold discharge until we see definitive indication for improvement in renal function Will follow Admission and Anticipated Discharge Date Admission Date: March 02, 2020 Clinton Hernandez was seen and examined in his room this morning. Overall he is feeling better, denies any shortness of breath or chest pain. Appetite has been decent. Has been voiding normally. Blood pressure decent. Volume status acceptable. Review of Systems Review of Systems: All systems reviewed & are unremarkable except as noted in HPI & below Physical Exam Constitutional: WD/WN, vitals as above + obese; no acute distress Respiratory: normal respiratory effort; no respiratory distress Auscultation: + diminished lung sounds Cardiovascular: RRR, no murmur, no edema Musculoskeletal: Extremities: extremities normal to inspection Skin: no rashes, warm and dry Neurologic: moves all extremities and awake; no focal motor deficits and not confused Psychiatric: A+Ox3, euthymic affect Results & Data ([facility]) Vital Signs (Past 12 Hours) Vital Signs Temp Pulse Resp BP BP Pulse Ox 04/20/20 07:23 36.7 C 84 22 149/94 H 94 03/05/20 05:27 36.4 C L 79 20 126/89 93 03/04/20 23:56 36.4 C L 73 22 108/75 95 PG Care Time/CCT Total # of Minutes Spent Total Time Spent with Patient: Total time spent is greater than 50% in coordination of care (as documented) at patient's floor/unit and/or counseling patient: Coding Level of Care Code 15087 Subseq Hosp Care Lvl 3 Diagnoses XAVIER (acute kidney injury) N17.9
--- NOTE | 2020-03-05 12:54 | Hospitalist Progress Note ---
Date of Service March 05, 2020 Assessment & Plan (1) Acute confusion: Patient presented with acute metabolic encephalopathy-could be secondary to suspected acute cholecystitis as well as acute kidney injury answering some questions appropriately, but overall does not grasp severity of his illness brother confirms his thinking has not been appropriate for some time -Unclear if is improved in mental status today, but clearly has declined since I last saw him in November earlier this year. -Received IV fluids with not much change in renal function-discontinued IV fluids today -Work-up for acute cholecystitis as below -Starting antibiotics as below brother Ivan is next of kin, getting POA paperwork, he is decision maker he is well informed of his worsening renal function and poor longterm prognosis (2) XAVIER (acute kidney injury): Multifactorial as patient was hypotensive, appears dry and is on multiple nephrotoxic medications. continue to hold lisinopril and lasix. -Received gentle IV fluids for 48 hours without much change in renal function-DC IV fluids today as is getting short of breath and has CHF Renal ultrasound without evidence of obstruction Appreciate nephrology consultation MERI cage -Continue to follow BMP and urine output-no indication for urgent dialysis -Patient stated to previous provider he would consider trying dialysis, however he still seems confused and does not comply with much medical treatment currently-hard to believe he would be compliant with dialysis. His brother is aware of the situation and also does not think his brother would be able to tolerate dialysis-the brother will be discussing the situation with the patient today Appreciate palliative care consultation for goals of care (3) Type 2 diabetes mellitus: Patient currently not taking any medications for this at home. Metformin was previously held due to elevated creatinine Hemoglobin A1c is 8.5% here -Continue use Novolog SS, diabetic diet at home he says he just eats Saline bars no hypoglycemia per his brother, he was not making any effort to manage his DM at home (4) Elevated LFTs: LFTs continue to be elevated on are increased from previous on admission He had an episode of nausea with vomiting today after eating fatty sausage for breakfast and has loss of appetite Right upper quadrant ultrasound obtained which showed thickened gallbladder with sludge and trace pericholecystic fluid, CBD normal in size, also with hepatic steatosis and nodular liver contour -We will start empiric antibiotics with IV Zosyn for acute cholecystitis -Check HIDA scan in the morning -Make diet clear liquids only at this point and then n.p.o. for HIDA scan -Follow LFTs in the morning (5) Weight loss: Patient reporting loss of 40 pounds over last couple of months. Reports food is not appetizing to him. There is ulcer on roof of mouth. Will continue magic mouth wash. Have speech therapy eval for dysphagia. PSA is normal. No masses on head ct or cxr. Would likely need ct chest / abd and pelvis when creatinine improves if looking for malignancy-unclear if he would even be able to tolerate any sort of treatment if there was 1 (6) Atrial fibrillation: Remains rate controlled. Continue metoprolol 200 mg daily Was placed on heparin bridge as he was subtherapeutic-DC heparin as INR is now therapeutic. Continue Coumadin 2mg daily. Patient was noncompliant in past. Plan was to change to NOAC. Due to renal function and lack of insurance patient not be candidate for NOAC. will need to discuss further with patient, may not want to use any anticoagulation if he is non-compliant -Continue Coumadin 2 mg daily and follow INR in the morning (7) Back pain: Patient reports secondary to fall. Checked lumbar xray - no fracture or other abnormality (8) Hypoxia: Patient with suspected, but no formal diagnosis of COPD. Continue combivent. Titrate o2 Pulm htn likely contributing. Patient will eventually need right heart cath. Patient was discharged with nocturnal oxygen last admission but has not been using. (9) Hypertension: Continue to hold amlodipine and lisinopril due to hypotension and acute renal failure. Will continue to monitor, continue metoprolol as above (10) Cardiomyopathy: With chronic systolic CHF, LVEF 30-35% and with severe pulmonary hypertension on echo in 11/2019 Was volume depleted at the time of this admission and was given gentle IV fluids x2 days Is now euvolemic -Holding home lisinopril and Lasix -Continue home Toprol-XL -Cardiology had discussed further workup including left heart cath when they saw him in November 2019 but declined at that time (11) CKD (chronic kidney disease): stage 3; baseline Cr about 1.5/1.6 Cr up to 3.8 here with acute kidney injury as above (12) Pulmonary hypertension: Severe as per echo 11/2019 -Likely secondary to lung disease (13) Tobacco abuse: (14) Severe protein-calorie malnutrition: (15) DVT prophylaxis: Heparin drip now discontinued Coumadin Disposition-continued stay for acute kidney injury, possible acute cholecystitis Admission and Anticipated Discharge Date Admission Date: March 02, 2020 Subjective Patient reports he had some upper abdominal pain this morning and then vomited after eating sausage for breakfast. No further abdominal pain since that time but has no appetite at all and did not want to eat his lunch. He denies chest pain. He does have some intermittent shortness of breath. He is still mildly confused at times. I discussed his case with the manager material as well as palliative care Telemetry with atrial fibrillation with rates in the 70s, no ectopy Review of Systems Review of Systems: All systems reviewed & are unremarkable except as noted in HPI & below Physical Exam Constitutional: + ill appearing and + obese; no acute distress Eyes: + anicteric sclerae ENMT: external ear and nose normal, oropharynx normal Neck: trachea midline, no thyromegaly Respiratory: normal respiratory effort, lungs clear to auscultation Cardiovascular: Rate/Rhythm: regular rate and + irregularly irregular Heart Sounds: no murmur Extremities: no edema Chest (Breasts): Chest: normal inspection of chest Gastrointestinal (Abdomen): normal bowel sounds, soft, nontender, no hepatosplenomegaly Musculoskeletal: Extremities: extremities normal to inspection; no cyanosis and no clubbing Skin: no rashes, warm and dry Neurologic: moves all extremities, awake and + confused Motor/Sensory: no tremor Psychiatric: Orientation: alert, oriented to person, oriented to time (Year and month but not date) and cooperative; + not oriented to place (Says "I am at the [facility]") Eye Contact: + fair eye contact Affect: + flat affect Lymphatic: no lymphedema Results & Data Results & Data ([facility]) Vital Signs (Past 12 Hours) Vital Signs Temp Pulse Pulse Resp BP BP Pulse Ox 03/05/20 11:30 36.8 C 74 24 119/78 96 03/05/20 08:00 72 03/05/20 07:23 36.7 C 84 22 149/94 H 94 03/05/20 05:27 36.4 C L 79 20 126/89 93 Laboratory Results 03/05/20 03/05/20 03/05/20 Range/Units 20:06 16:12 13:11 WBC (4.8-10.8) K/uL RBC (4.7-6.1) M/uL Hgb (14.0-18.0) g/dL Hct (42-52) % MCV (80-100) fL MCH (25-34) pg MCHC (32-36) g/dL RDW Std Deviation (36.4-46.3) fL RDW Coeff of Liss (11.5-14.5) % Plt Count (130-400) K/uL MPV (7.4-10.4) fL PT (9.0-12.0) Seconds INR (0.9-1.1) APTT (21.0-31.0) Seconds PTT Ratio Sodium (136-145) mmol/L Potassium (3.5-5.1) mmol/L Chloride (98-107) mmol/L Carbon Dioxide (21-32) mmol/L Anion Gap (3-11) BUN (7-18) mg/dl Creatinine (0.6-1.4) mg/dl Est Cr Clr Drug Dosing ml/min Est GFR ( Amer) Est GFR (Non-Af Amer) BUN/Creatinine Ratio (10-20) Glucose (70-99) mg/dl POC Glucose 127 H 135 H (70-99) mg/dl Calcium (8.5-10.1) mg/dl Total Bilirubin 1.8 H (0.2-1) mg/dl Direct Bilirubin 0.8 H (0-0.2) mg/dl AST 162 H (15-37) U/L ALT 137 H (12-78) U/L Alkaline Phosphatase 113 (45-117) U/L Total Protein 5.7 L (6.4-8.2) gm/dl Albumin 2.9 L (3.4-5.0) gm/dl 03/05/20 03/05/20 03/05/20 Range/Units 13:11 11:33 07:31 WBC (4.8-10.8) K/uL RBC (4.7-6.1) M/uL Hgb (14.0-18.0) g/dL Hct (42-52) % MCV (80-100) fL MCH (25-34) pg MCHC (32-36) g/dL RDW Std Deviation (36.4-46.3) fL RDW Coeff of Liss (11.5-14.5) % Plt Count (130-400) K/uL MPV (7.4-10.4) fL PT 22.2 H (9.0-12.0) Seconds INR 2.2 H (0.9-1.1) APTT (21.0-31.0) Seconds PTT Ratio Sodium (136-145) mmol/L Potassium (3.5-5.1) mmol/L Chloride (98-107) mmol/L Carbon Dioxide (21-32) mmol/L Anion Gap (3-11) BUN (7-18) mg/dl Creatinine (0.6-1.4) mg/dl Est Cr Clr Drug Dosing ml/min Est GFR ( Amer) Est GFR (Non-Af Amer) BUN/Creatinine Ratio (10-20) Glucose (70-99) mg/dl POC Glucose 136 H 142 H (70-99) mg/dl Calcium (8.5-10.1) mg/dl Total Bilirubin (0.2-1) mg/dl Direct Bilirubin (0-0.2) mg/dl AST (15-37) U/L ALT (12-78) U/L Alkaline Phosphatase (45-117) U/L Total Protein (6.4-8.2) gm/dl Albumin (3.4-5.0) gm/dl 03/05/20 03/05/20 03/05/20 Range/Units 06:18 06:18 06:18 WBC 10.31 (4.8-10.8) K/uL RBC 5.48 (4.7-6.1) M/uL Hgb 16.2 (14.0-18.0) g/dL Hct 48.0 (42-52) % MCV 87.6 (80-100) fL MCH 29.6 (25-34) pg MCHC 33.8 (32-36) g/dL RDW Std Deviation 54.0 H (36.4-46.3) fL RDW Coeff of Liss 17.5 H (11.5-14.5) % Plt Count 177 (130-400) K/uL MPV 11.4 H (7.4-10.4) fL PT (9.0-12.0) Seconds INR (0.9-1.1) APTT 57.3 H* (21.0-31.0) Seconds PTT Ratio 2.1 Sodium 135 L (136-145) mmol/L Potassium 4.4 (3.5-5.1) mmol/L Chloride 101 (98-107) mmol/L Carbon Dioxide 23 (21-32) mmol/L Anion Gap 11.0 (3-11) BUN 69 H (7-18) mg/dl Creatinine 3.78 H (0.6-1.4) mg/dl Est Cr Clr Drug Dosing 24.0 ml/min Est GFR ( Amer) 18.1 Est GFR (Non-Af Amer) 15.6 BUN/Creatinine Ratio 18.2 (10-20) Glucose 123 H (70-99) mg/dl POC Glucose (70-99) mg/dl Calcium 9.0 (8.5-10.1) mg/dl Total Bilirubin (0.2-1) mg/dl Direct Bilirubin (0-0.2) mg/dl AST (15-37) U/L ALT (12-78) U/L Alkaline Phosphatase (45-117) U/L Total Protein (6.4-8.2) gm/dl Albumin (3.4-5.0) gm/dl 03/04/20 Range/Units 20:23 WBC (4.8-10.8) K/uL RBC (4.7-6.1) M/uL Hgb (14.0-18.0) g/dL Hct (42-52) % MCV (80-100) fL MCH (25-34) pg MCHC (32-36) g/dL RDW Std Deviation (36.4-46.3) fL RDW Coeff of Liss (11.5-14.5) % Plt Count (130-400) K/uL MPV (7.4-10.4) fL PT (9.0-12.0) Seconds INR (0.9-1.1) APTT (21.0-31.0) Seconds PTT Ratio Sodium (136-145) mmol/L Potassium (3.5-5.1) mmol/L Chloride (98-107) mmol/L Carbon Dioxide (21-32) mmol/L Anion Gap (3-11) BUN (7-18) mg/dl Creatinine (0.6-1.4) mg/dl Est Cr Clr Drug Dosing ml/min Est GFR ( Amer) Est GFR (Non-Af Amer) BUN/Creatinine Ratio (10-20) Glucose (70-99) mg/dl POC Glucose 140 H (70-99) mg/dl Calcium (8.5-10.1) mg/dl Total Bilirubin (0.2-1) mg/dl Direct Bilirubin (0-0.2) mg/dl AST (15-37) U/L ALT (12-78) U/L Alkaline Phosphatase (45-117) U/L Total Protein (6.4-8.2) gm/dl Albumin (3.4-5.0) gm/dl PG Care Time/CCT Total # of Minutes Spent Total Time Spent with Patient: Total time spent is greater than 50% in coordination of care (as documented) at patient's floor/unit and/or counseling patient: Coding Level of Care Code 08389 Subseq Hosp Care Lvl 3 Diagnoses Acute confusion R41.0 XAVIER (acute kidney injury) N17.9 Type 2 diabetes mellitus E11.9 Elevated LFTs R79.89 Weight loss R63.4 Atrial fibrillation I48.91 Atrial fibrillation type: unspecified Back pain M54.9 Hypoxia R09.02 Hypertension I10 Cardiomyopathy I42.9 CKD (chronic kidney disease) N18.9 Pulmonary hypertension I27.20 Tobacco abuse Z72.0 Severe protein-calorie malnutrition E43 DVT prophylaxis Z29.9 (1) Atrial fibrillation Atrial fibrillation type: unspecified Qualified Code(s): I48.91 - Unspecified atrial fibrillation
[2020-03-05 13:33] LABS: INR 2.2 (0.9-1.1); Prothrombin Time 22.2 Seconds (9.0-12.0)
--- NOTE | 2020-03-05 13:33 | Palliative Care Consultation ---
Date of Consultation March 05, 2020 Assessment & Plan (1) Goals of care, counseling/discussion: -64 year old male patient with PMH atrial fibrillation supposed to be on Coumadin, COPD, pulmonary hypertension, cardiomyopathy with EF 35%, hypertension, type 2 diabetes and CKD stage III, and others, presented to the hospital three days ago with altered mental status and acute renal failure. Patient was last in hospital in November when he was found to be in afib with RVR, newly diagnosed cardiomyopathy with an EF 35%. Apparently patient has been having issues at home with increased weakness, periods of confusion per family, not managing his diabetes and not taking his Coumadin. Patient went and saw his PCP due to the failure to thrive. PCP wanted to get imaging studies done to evaluate unintentional weight loss, but there were insurance issues. Patient had labs drawn which showed acute kidney injury, but his PCP was unable to get a hold of patient. Patient's brother, Ivan, was contacted who had to drive here from [place], [place], to get patient and bring him to hospital. Patient's brother states that patient's house was in disarray, cluttered and dirty. In ED, CT head was negative, CXR negative. Creatinine was found to be 3.48 and patient is oliguric; creatinine was 1.61 when discharged from the hospital in November. Creatinine has continued to rise, nephrology is following. Questionable as to why patient has had this weight loss and recent decline, but unable to obtain CT abd/pelvis with contrast due to the kidney failure. This is unlikely to make a difference in current treatment plan anyway. Patient is heading towards needing dialysis, but is a poor candidate due to his comorbidities and difficulties with compliance. Patient's mental status is questionable and he apparently does not seem to comprehend the severity of his illness and lacks insight into complex medical issues. Attending physician contacted patient's brother, Ivan, yesterday and updated him. Palliative care is now consulted to assist with establishing goals of care. -Palliative MD visited patient this afternoon. He does lack insight, but is mostly oriented and answers appropriately. Patient stated that he would in fact want to try dialysis if that is what's needed. He also said he would be okay with his brother, Ivan, being involved in discharge planning and decision making. Patient is not , has no children. -I called patient's brother, Ivan, and spoke with him at length. Ivan has a very good understanding of patient's medical conditions and poor prognosis. He states that he does not think his brother would have a good quality of life living at a prison and being on dialysis. However, he plans to call patient today some time to discuss this with him further. Ivan states if it were up to him, he would just want to focus on patient's comfort. -Everyone, including patient, are in agreement that he will need SNF after hospitalization. Referral has been made to [facility] for rehab, and he may end up needing long-term placement there. This would be Ivan's preference for the patient. We also discussed a possible transition to comfort/hospice care in the future if patient's condition continues to deteriorate. -Ivan plans to call patient and discuss this evening. I will then call Ivan and touch base tomorrow. -We will continue to follow patient throughout hospitalization. (2) Weight loss: (3) Severe protein-calorie malnutrition: (4) XAVIER (acute kidney injury): Supervising Physician Co-Signing Physician Notes Chart reviewed, patient seen and examined. Patient was able to tell me where he was, gave the year as 2019, the month is August, the day of the week as Thursday. 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 Patient is single with no children, he does not have advanced directives or living will, he did name his brother as his medical healthcare surrogate. Asked patient if he knew anybody on hemodialysis-he replied yes, stated that the patient comes to [facility] daily for dialysis treatment. Discussed with patient what would be involved with dialysis-may be more difficult for him to tolerate with his cardiomyopathy-EF 30 to 35% on echo performed on 12/09/2019. Patient gives vague medical history-discussed his hemoglobin A1c, he commented it had been fine before, when asked who checked it he said nobody. Patient states he is lost 40 to 50 pounds in the past month, stated food did not taste good and was eating only [employer] bars. Patient's echo also showed severe pulmonary hypertension. Patient's creatinine in November was 1.61, on admission was 3.39-last set of labs it was 3.78. Patient's brother plans to speak with him this evening regarding possible future dialysis, patient may be a poor candidate due to his medical noncompliance and poor performance status in addition to his cardiomyopathy and severe pulmonary hypertension. PE: Patient awake and alert, no acute distress. Patient appears older than stated age HEENT: EOMI, hearing grossly within normal limits CV: Regular rate, no edema Respirations: Clear breath sounds bilaterally Abdomen: Soft, nontender, obese Extremities: No edema Neuro: Alert, not completely oriented, able to participate in medical decision making. Agree with above note, assessment and plan as per CHERI Kennedy-we will continue to follow and assist patient and brother with medical decision making. History of Present Illness Attending Physician: Mi Win MD History of Present Illness This 64 year old male patient with PMH atrial fibrillation supposed to be on Coumadin, COPD, pulmonary hypertension, cardiomyopathy with EF 35%, hypertension, type 2 diabetes and CKD stage III, and others, presented to the hospital three days ago with altered mental status and acute renal failure. Patient was last in hospital in November when he was found to be in afib with RVR, newly diagnosed cardiomyopathy with an EF 35%. Apparently patient has been having issues at home with increased weakness, periods of confusion per family, not managing his diabetes and not taking his Coumadin. Patient went and saw his PCP due to the failure to thrive. PCP wanted to get imaging studies done to evaluate unintentional weight loss, but there were insurance issues. Patient had labs drawn which showed acute kidney injury, but his PCP was unable to get a hold of patient. Patient's brother, Ivan, was contacted who had to drive here from [place], [place], to get patient and bring him to hospital. Patient's brother states that patient's house was in disarray, cluttered and dirty. In ED, CT head was negative, CXR negative. Creatinine was found to be 3.48 and patient is oliguric; creatinine was 1.61 when discharged from the hospital in November. Creatinine has continued to rise, nephrology is following. Questionable as to why patient has had this weight loss and recent decline, but unable to obtain CT abd/pelvis with contrast due to the kidney failure. This is unlikely to make a difference in current treatment plan anyway. Patient is heading towards needing dialysis, but is a poor candidate due to his comorbidities and difficulties with compliance. Patient's mental status is questionable and he apparently does not seem to comprehend the severity of his illness and lacks insight into complex medical issues. Attending physician contacted patient's brother, Ivan, yesterday and updated him. Palliative care is now consulted to assist with establishing goals of care. Thank you kindly for this consult. Palliative care team will follow as needed. Allergies Allergy/AdvReac Type Severity Reaction Status Date / Time No Known Allergies Allergy Mild Verified 03/02/20 11:50 Home Medications Home Medications Medication Instructions Recorded Confirmed Type aspirin 81 mg tablet,delayed 81 mg PO DAILY #30 tab 11/29/19 03/02/20 History release amlodipine 10 mg tablet 5 mg PO BID #30 tab 02/28/20 03/02/20 Rx furosemide 40 mg tablet 40 mg PO DAILY PRN #30 tab 02/28/20 03/02/20 Rx ipratropium 20 mcg-albuterol 100 1 puff INHALATION QID PRN #4 gm 02/28/20 03/02/20 Rx mcg/actuation mist for inhalation lisinopril 10 mg tablet 10 mg PO DAILY #30 tab 02/28/20 03/02/20 Rx metoprolol succinate 200 mg 200 mg PO DAILY #30 tab 02/28/20 03/02/20 Rx tablet,extended release 24 hr tramadol 50 mg tablet 50 mg PO Q8H PRN #30 tab 02/28/20 03/02/20 Rx Patient History Medical History (Updated 03/05/20 @ 13:28 by CHERI More) Atrial fibrillation (Acute) Back pain Cardiomyopathy CKD (chronic kidney disease) Elevated LFTs H/O: CVA (cerebrovascular accident) (Resolved) Hypertension (Chronic) Left bundle branch block (LBBB) (Acute) Pulmonary hypertension Tobacco abuse Type 2 diabetes mellitus (Chronic) Weight loss Surgical History History of facial surgery Family History Father Lymphoma Myocardial infarction Mother Lung cancer Social History Preferred Language: Occitan Communication Ability: Effective 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 Beliefs That Will Affect Care: None marital status: Single Current Living Situation: Alone Other Information That Helps Us Care for You: No Feels Safe at Home: Yes Safety Concerns: Feels Safe At This Time Smoking Status: Former smoker Tobacco Type: cigarettes ; Age Started Using Tobacco: 14 ; Age Quit Using Tobacco: 48 ; Cigarettes Per Day: 10 ; Do You Dip or Chew Tobacco: No ; Second Hand Exposure: No ; Tobacco Cessation Education Requested by Patient: No Hx Alcohol Use: Yes Alcohol type: beer Hx Substance Use: No Results & Data Vital Signs (Past 12 Hours) Vital Signs Temp Pulse Pulse Resp BP BP Pulse Ox 03/05/20 11:30 36.8 C 74 24 119/78 96 03/05/20 08:00 72 03/05/20 07:23 36.7 C 84 22 149/94 H 94 03/05/20 05:27 36.4 C L 79 20 126/89 93 Coding Level of Care Code 08269 Inpt Consult Level 3 Diagnoses Goals of care, counseling/discussion Z71.89 Weight loss R63.4 Severe protein-calorie malnutrition E43 XAVIER (acute kidney injury) N17.9 Time Spent (min) 80 Time Spent Midlevel A total of 50 minutes was spent by this PARK AIDE in reviewing chart, speaking with attending physician, collaborating with palliative MD and speaking with patient's family regarding goals of care and patient condition. Attending Spent 30 minutes in addition to the 50 minutes spent by CHERI Kennedy for a total of 80 minutes with greater than 50% of the time spent at bedside assessing patient's mental status, capacity to make complex medical decisions as well as addressing goals of care.
[2020-03-05 13:41] LABS: Albumin Level 2.9 gm/dl (3.4-5.0); Bilirubin Direct 0.8 mg/dl (0-0.2); Bilirubin,Total 1.8 mg/dl (0.2-1); Total Protein 5.7 gm/dl (6.4-8.2)
[2020-03-05] MEDS: WARFARIN SOD 2 MG TAB PO SCH (16:17)
--- NOTE | 2020-03-05 18:41 | Ultrasound Report ---
ULTRASOUND RIGHT UPPER QUADRANT ABDOMEN CLINICAL HISTORY: Right upper quadrant abdominal pain. Elevated hepatic transaminases. COMPARISON STUDY: No priors. TECHNIQUE: Real-time, grayscale, and color flow sonography of the right upper quadrant of the abdomen was performed. Images are reviewed in the transverse and longitudinal planes. FINDINGS: Liver: The liver is enlarged and demonstrates heterogeneously increased echotexture consistent with h epatic steatosis. There is nodularity of the hepatic surface contour. There is no intrahepatic biliar y ductal dilatation. The main portal vein is patent. A 2.2 cm cyst is noted in the right lobe. Gallbladder: Biliary sludge is noted. No shadowing gallstones are identified. The gallbladder wall is thickened measuring up to 6 mm there is trace pericholecystic fluid. A sonographic Frausto's sign is reportedly absent. The common bile duct measures up to 0.3 cm in diameter. Pancreas: Visualized portions of the pancreatic head are normal as imaged. The majority of the pancre as was not visualized. Right kidney: Survey images of the right kidney demonstrate mild cortical atrophy. There is no hydron ephrosis. Ascites: There is trace perihepatic free fluid. IMPRESSION: 1. The liver is enlarged and steatotic. Nodularity of the surface contour suggests early change of ci rrhosis. 2. Biliary sludge is noted within a thick-walled and edematous appearing gallbladder. No shadowing ga llstones are identified and there is trace pericholecystic fluid. A sonographic Frausto's sign is repo rtedly absent. These findings are nonspecific and could be related to adjacent hepatocellular disease . Acute cholecystitis is not excluded. If there strong clinical concern for acute cholecystitis a nuc lear hepatobiliary scan should be considered. 3. There is trace perihepatic fluid. 4. No intra or extrahepatic biliary ductal dilatation is identified. ACT 112: Negative or not required by law. Electronically signed by: Chirag Valles M.D. 03/05/2020 6:40 PM
[2020-03-05] MEDS ORDERED: ALBUTEROL HFA 8 GM INHALER INH PRN (18:58)
[2020-03-05] MEDS ORDERED: IPRATROPIUM BROMIDE HFA INHALER INH PRN (19:00)
[2020-03-05] MEDS ORDERED: PIPERACILL/TAZOBAC CONSULT ACTIVE PRN (19:00)
[2020-03-05] MEDS ORDERED: PIPERACILLIN/TAZOBACTAM 4.5 GM in DEXTROSE 5% 100 ML IV ONE (19:30)
[2020-03-05] MEDS: PIPERACILLIN/TAZOBACTAM 3.375 GM in DEXTROSE 5% 100 ML IV SCH (23:48)
[2020-03-06] MEDS ORDERED: PIPERACILLIN/TAZOBACTAM 4.5 GM in DEXTROSE 5% 100 ML IV SCH
[2020-03-06] MEDS: NYSTATIN 30 ML, DEXAMETHASONE CONC 3.75 MG, DiphenhydrAMINE Syrup 300 MG, ORA-SWEET SYR... PO SCH ×2 (04:05→08:39)
[2020-03-06] MEDS: PIPERACILLIN/TAZOBACTAM 3.375 GM in DEXTROSE 5% 100 ML IV SCH ×2 (07:34→19:37)
[2020-03-06] MEDS: METOPROLOL SUCC 50MG EXT REL TAB PO SCH (07:34)
[2020-03-06] MEDS: INSULIN ASPART 100 UNITS/ML 3 ML PEN SC SCH ×4 (07:35→20:45)
[2020-03-06 07:36] LABS: Basophils # (auto) 0.01 K/uL (0-0.2); Basophils % (auto) 0.1 %; Eosinophils # (auto) 0.05 K/uL (0-0.5); Eosinophils % (auto) 0.5 %; Hematocrit (blood only) 51.4 % (42-52); Hemoglobin 17.2 g/dL (14.0-18.0); Immature Granulocytes # (auto) 0.02 K/uL (0.00-0.02); Immature Granulocytes % (auto) 0.2 %; Lymphocytes # (auto) 1.48 K/uL (1.2-3.4); Lymphocytes % (auto) 14.4 %; Mean Corpuscular Hemoglobin 29.2 pg (25-34); Mean Corpuscular Hgb Conc 33.5 g/dL (32-36); Mean Corpuscular Volume 87.3 fL (80-100); Mean Platelet Volume 11.6 fL (7.4-10.4); Monocytes # (auto) 0.66 K/uL (0.11-0.59); Monocytes % (auto) 6.4 %; Neutrophils # (auto) 8.09 K/uL (1.4-6.5); Neutrophils % (auto) 78.4 %; Nucleated RBC # (auto) 0.08 K/uL (0-0); Nucleated RBC % (auto) 0.7 %; Platelet Count 163 K/uL (130-400); RDW Coefficient of Variation 18.1 % (11.5-14.5); RDW Standard Deviation 54.6 fL (36.4-46.3); Red Blood Count 5.89 M/uL (4.7-6.1); White Blood Count 10.31 K/uL (4.8-10.8)
[2020-03-06 07:45] LABS: INR 2.8 (0.9-1.1); Prothrombin Time 27.7 Seconds (9.0-12.0)
[2020-03-06 08:23] LABS: BUN Creatinine Ratio 17.5 (10-20); Bilirubin,Total 2.4 mg/dl (0.2-1); Calcium 9.1 mg/dl (8.5-10.1); Creatinine Clr Calc Pharmacy 22.3 ml/min; Est GFR (African American) 16.6; Est GFR (Non-African American) 14.3; Total Protein 6.1 gm/dl (6.4-8.2)
[2020-03-06 09:25] LABS: Potassium 4.6 mmol/L (3.5-5.1)
--- NOTE | 2020-03-06 11:08 | Hospitalist Progress Note ---
Date of Service March 06, 2020 Assessment & Plan (1) Acute confusion: Patient presented with acute metabolic encephalopathy-could be secondary to suspected acute cholecystitis as well as acute kidney injury Continues to be answering some questions appropriately, but overall does not grasp severity of his illness. Mental status does seem a little bit clearer today than before He continues to reiterate that he plans on going home tomorrow despite the fact that he can even stand on his own. 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 He was apparently not able to get out of bed much at all the last few weeks and was urinating in a bucket in his living room where he was sleeping. He was not eating or drinking much at all. Renal function worsening today with creatinine up to 4.08 and becoming acidotic Blood pressure is stable and continues to appear euvolemic He is urinating but it is having incontinence and is not being measured -Received gentle IV fluids for 48 hours without much change in renal function Renal ultrasound without evidence of obstruction Urinalysis is bland Appreciate nephrology consultation -Plan to restart gentle IV fluids today with D5 half-normal saline +75 mEq of sodium bicarbonate at 80 mL's per hour -Continue to hold lisinopril and lasix from home. -Continue to follow BMP and urine output-no indication for urgent dialysis -Patient stated to previous provider he would consider trying dialysis, however he still seems confused and does not comply with much medical treatment currently-hard to believe he would be compliant with dialysis. His brother is aware of the situation and also does not think his brother would be able to tolerate dialysis-the brother has been discussing the situation with the patient on the phone At this point, patient wants to wait and see the results of his testing today a nd how he is doing by tomorrow before he makes a decision about if he would want dialysis Appreciate palliative care consultation for goals of care (3) Elevated LFTs: LFTs continue to increase in an obstructive/cholestatic pattern although he no longer has any abdominal pain He had an episode of nausea with vomiting on 03/05 after eating fatty sausage for breakfast and has continued loss of appetite Right upper quadrant ultrasound obtained which showed thickened gallbladder with sludge and trace pericholecystic fluid, CBD normal in size, also with hepatic steatosis and nodular liver contour MRCP obtained shows no choledocholithiasis HIDA scan-incomplete study as patient would not cooperate by following instructions, however the portion that was completed did show possible acute cholecystitis No leukocytosis, remains afebrile, although mentation has improved with starting antibiotics -Follow blood cultures-no growth to date -Continue empiric antibiotics with IV Zosyn for acute cholecystitis -Appreciate GI consultation-no need for ERCP -Will consult surgery to see if cholecystectomy is indicated although he would be a very poor candidate for surgery given his acute kidney injury and CHF -We will hold Coumadin in case of need for surgery or procedure, but no need to reverse with vitamin K at this point -Follow LFTs in the morning, follow CBC -Can advance diet to clears after CT abdomen/pelvis (4) Weight loss: Patient reporting loss of 40 pounds over last couple of months. Has a loss of appetite and possible acute cholecystitis PSA is normal. No masses on head ct or cxr. -Check CT of the chest/abdomen/pelvis with oral contrast only to assess for malignancy (5) Type 2 diabetes mellitus: Patient currently not taking any medications for this at home. Metformin was previously held due to elevated creatinine Hemoglobin A1c is 8.5% here -Continue use Novolog SS, diabetic diet at home he says he just eats [place] bars no hypoglycemia per his brother, he was not making any effort to manage his DM at home (6) Atrial fibrillation: Remains rate controlled. Continue metoprolol 200 mg daily Was placed on heparin bridge as he was subtherapeutic-heparin drip was discontinued when INR became therapeutic INR remains therapeutic today at 2.8 -Hold Coumadin in case of need for surgical procedure for gallbladder -Follow INR in the morning Of note, was not compliant with Coumadin prior to admission, however with renal failure and no health insurance, he would not be able to use a DOAC (7) Back pain: Patient reports secondary to fall. Checked lumbar xray - no fracture or other abnormality He is very weak in the legs bilaterally but has been mostly laying around his house for many weeks PT/OT and will need rehab placement (8) Hypoxia: Patient with suspected, but no formal diagnosis of COPD. Intermittently requiring 2 L nasal cannula but I do not suspect volume overload MRCP did show small bilateral pleural effusions Continue combivent. Titrate o2 to keep pulse ox greater than 88% Pulm htn likely contributing. Patient will eventually need right heart cath. Patient was discharged with nocturnal oxygen last admission but has not been using. (9) Hypertension: Continue to hold amlodipine and lisinopril due to hypotension and acute renal failure. Will continue to monitor, continue metoprolol as above (10) Cardiomyopathy: With chronic systolic CHF, LVEF 30-35% and with severe pulmonary hypertension on echo in 11/2019 Was volume depleted at the time of this admission and was given gentle IV fluids x2 days Is now euvolemic but creatinine continues to rise -Continue holding home lisinopril and Lasix -Continue home Toprol-XL -Cardiology had discussed further workup including left heart cath when they saw him in November 2019 but declined at that time (11) CKD (chronic kidney disease): stage 3; baseline Cr about 1.5/1.6 Cr up to 4.0 here with acute kidney injury as above -Avoid nephrotoxins -renally dose meds when appropriate -follow BMP (12) Pulmonary hypertension: Severe as per echo 11/2019 -Likely secondary to lung disease (13) Tobacco abuse: Quit (14) Severe protein-calorie malnutrition: With significant weight loss and very poor appetite Dietary supplements will be encouraged once he is able to take p.o. (15) DVT prophylaxis: Coumadin Disposition-continued stay for acute kidney injury, possible acute cholecystitis Eventually will need rehab/SNF placement versus hospice care if continues to decline Admission and Anticipated Discharge Date Admission Date: March 02, 2020 Subjective Patient reports feeling okay today, is intermittently short of breath. Denies chest pain. Denies any further abdominal pain or nausea. Is actually feeling a little bit hungry. Had 2 large bowel movements today. He reports he does have a friend who was on dialysis and we reviewed what dialysis is. He is undecided if you would want to but is not sure he would want the alternative. We also discussed his potential gallbladder issue and he would like to see the results of the testing today before deciding what to do. I discussed his case with nephrology at the bedside as well as with the GI nurse practitioner on the phone. I also discussed his case with palliative care. Telemetry with atrial fibrillation with rates in the 60s to 70s Review of Systems Review of Systems: All systems reviewed & are unremarkable except as noted in HPI & below Physical Exam Constitutional: + ill appearing and + obese; no acute distress Eyes: + anicteric sclerae Neck: trachea midline, no thyromegaly Respiratory: normal respiratory effort, lungs clear to auscultation Cardiovascular: Rate/Rhythm: regular rate and + irregularly irregular Heart Sounds: no murmur Extremities: no edema Chest (Breasts): Chest: normal inspection of chest Gastrointestinal (Abdomen): normal bowel sounds, soft, nontender, no hepatosplenomegaly Musculoskeletal: Extremities: extremities normal to inspection; no cyanosis and no clubbing Skin: no rashes, warm and dry Neurologic: moves all extremities and awake Motor/Sensory: no tremor Psychiatric: Orientation: alert, oriented to person, oriented to place, oriented to time and cooperative Eye Contact: + fair eye contact Lymphatic: no lymphedema Results & Data Results & Data ([facility]) Vital Signs (Past 12 Hours) Vital Signs Temp Pulse Pulse Pulse Resp BP BP 03/06/20 07:57 36.2 C L 80 18 121/74 03/06/20 07:25 73 03/06/20 04:00 36.7 C 69 17 152/79 H 03/05/20 23:24 36.6 C 76 18 116/78 Pulse Ox 03/06/20 07:57 93 03/06/20 07:25 03/06/20 04:00 98 03/05/20 23:24 98 Laboratory Results 03/06/20 03/06/20 03/06/20 Range/Units 16:42 11:49 08:54 WBC (4.8-10.8) K/uL RBC (4.7-6.1) M/uL Hgb (14.0-18.0) g/dL Hct (42-52) % MCV (80-100) fL MCH (25-34) pg MCHC (32-36) g/dL RDW Std Deviation (36.4-46.3) fL RDW Coeff of Liss (11.5-14.5) % Plt Count (130-400) K/uL MPV (7.4-10.4) fL Immature Gran % (Auto) % Neut % (Auto) % Lymph % (Auto) % [place] % (Auto) % Eos % (Auto) % Baso % (Auto) % Immature Gran # (Auto) (0.00-0.02) K/uL Neut # (Auto) (1.4-6.5) K/uL Lymph # (Auto) (1.2-3.4) K/uL [place] # (Auto) (0.11-0.59) K/uL Eos # (Auto) (0-0.5) K/uL Baso # (Auto) (0-0.2) K/uL Absolute Nucleated RBC (0-0) K/uL Nucleated RBC % (auto) % PT (9.0-12.0) Seconds INR (0.9-1.1) Sodium (136-145) mmol/L Potassium 4.6 (3.5-5.1) mmol/L Chloride (98-107) mmol/L Carbon Dioxide (21-32) mmol/L Anion Gap (3-11) BUN (7-18) mg/dl Creatinine (0.6-1.4) mg/dl Est Cr Clr Drug Dosing ml/min Est GFR ( Amer) Est GFR (Non-Af Amer) BUN/Creatinine Ratio (10-20) Glucose (70-99) mg/dl POC Glucose 142 H 143 H (70-99) mg/dl Calcium (8.5-10.1) mg/dl Magnesium 2.0 (1.8-2.4) mg/dl Total Bilirubin (0.2-1) mg/dl Direct Bilirubin 1.0 H (0-0.2) mg/dl AST 276 H (15-37) U/L ALT (12-78) U/L Alkaline Phosphatase (45-117) U/L Total Protein (6.4-8.2) gm/dl Albumin (3.4-5.0) gm/dl 03/06/20 03/06/20 03/06/20 Range/Units 07:31 07:20 07:20 WBC (4.8-10.8) K/uL RBC (4.7-6.1) M/uL Hgb (14.0-18.0) g/dL Hct (42-52) % MCV (80-100) fL MCH (25-34) pg MCHC (32-36) g/dL RDW Std Deviation (36.4-46.3) fL RDW Coeff of Liss (11.5-14.5) % Plt Count (130-400) K/uL MPV (7.4-10.4) fL Immature Gran % (Auto) % Neut % (Auto) % Lymph % (Auto) % [place] % (Auto) % Eos % (Auto) % Baso % (Auto) % Immature Gran # (Auto) (0.00-0.02) K/uL Neut # (Auto) (1.4-6.5) K/uL Lymph # (Auto) (1.2-3.4) K/uL [place] # (Auto) (0.11-0.59) K/uL Eos # (Auto) (0-0.5) K/uL Baso # (Auto) (0-0.2) K/uL Absolute Nucleated RBC (0-0) K/uL Nucleated RBC % (auto) % PT 27.7 H (9.0-12.0) Seconds INR 2.8 H (0.9-1.1) Sodium 134 L (136-145) mmol/L Potassium (3.5-5.1) mmol/L Chloride 100 (98-107) mmol/L Carbon Dioxide 20 L (21-32) mmol/L Anion Gap 14.0 H (3-11) BUN 71 H (7-18) mg/dl Creatinine 4.06 H (0.6-1.4) mg/dl Est Cr Clr Drug Dosing 22.3 ml/min Est GFR ( Amer) 16.6 Est GFR (Non-Af Amer) 14.3 BUN/Creatinine Ratio 17.5 (10-20) Glucose 124 H (70-99) mg/dl POC Glucose 114 H (70-99) mg/dl Calcium 9.1 (8.5-10.1) mg/dl Magnesium (1.8-2.4) mg/dl Total Bilirubin 2.4 H (0.2-1) mg/dl Direct Bilirubin (0-0.2) mg/dl AST (15-37) U/L ALT 235 H (12-78) U/L Alkaline Phosphatase 100 (45-117) U/L Total Protein 6.1 L (6.4-8.2) gm/dl Albumin 3.0 L (3.4-5.0) gm/dl 03/06/20 03/05/20 Range/Units 07:20 20:06 WBC 10.31 (4.8-10.8) K/uL RBC 5.89 (4.7-6.1) M/uL Hgb 17.2 (14.0-18.0) g/dL Hct 51.4 (42-52) % MCV 87.3 (80-100) fL MCH 29.2 (25-34) pg MCHC 33.5 (32-36) g/dL RDW Std Deviation 54.6 H (36.4-46.3) fL RDW Coeff of Liss 18.1 H (11.5-14.5) % Plt Count 163 (130-400) K/uL MPV 11.6 H (7.4-10.4) fL Immature Gran % (Auto) 0.2 % Neut % (Auto) 78.4 % Lymph % (Auto) 14.4 % [place] % (Auto) 6.4 % Eos % (Auto) 0.5 % Baso % (Auto) 0.1 % Immature Gran # (Auto) 0.02 (0.00-0.02) K/uL Neut # (Auto) 8.09 H (1.4-6.5) K/uL Lymph # (Auto) 1.48 (1.2-3.4) K/uL [place] # (Auto) 0.66 H (0.11-0.59) K/uL Eos # (Auto) 0.05 (0-0.5) K/uL Baso # (Auto) 0.01 (0-0.2) K/uL Absolute Nucleated RBC 0.08 H (0-0) K/uL Nucleated RBC % (auto) 0.7 % PT (9.0-12.0) Seconds INR (0.9-1.1) Sodium (136-145) mmol/L Potassium (3.5-5.1) mmol/L Chloride (98-107) mmol/L Carbon Dioxide (21-32) mmol/L Anion Gap (3-11) BUN (7-18) mg/dl Creatinine (0.6-1.4) mg/dl Est Cr Clr Drug Dosing ml/min Est GFR ( Amer) Est GFR (Non-Af Amer) BUN/Creatinine Ratio (10-20) Glucose (70-99) mg/dl POC Glucose 127 H (70-99) mg/dl Calcium (8.5-10.1) mg/dl Magnesium (1.8-2.4) mg/dl Total Bilirubin (0.2-1) mg/dl Direct Bilirubin (0-0.2) mg/dl AST (15-37) U/L ALT (12-78) U/L Alkaline Phosphatase (45-117) U/L Total Protein (6.4-8.2) gm/dl Albumin (3.4-5.0) gm/dl PG Care Time/CCT Total # of Minutes Spent Total Time Spent with Patient: Total time spent is greater than 50% in coordination of care (as documented) at patient's floor/unit and/or counseling patient: Coding Level of Care Code 10921 Subseq Hosp Care Lvl 3 Diagnoses Acute confusion R41.0 XAVIER (acute kidney injury) N17.9 Elevated LFTs R79.89 Weight loss R63.4 Type 2 diabetes mellitus E11.9 Atrial fibrillation I48.91 Atrial fibrillation type: unspecified Back pain M54.9 Hypoxia R09.02 Hypertension I10 Cardiomyopathy I42.9 CKD (chronic kidney disease) N18.9 Pulmonary hypertension I27.20 Tobacco abuse Z72.0 Severe protein-calorie malnutrition E43 DVT prophylaxis Z29.9 (1) Atrial fibrillation Atrial fibrillation type: unspecified Qualified Code(s): I48.91 - Unspecified atrial fibrillation
--- NOTE | 2020-03-06 11:41 | Gastrointestinal Consultation ---
Date of Consultation March 06, 2020 Assessment & Plan (1) Elevated LFTs: Mildly elevated LFTs likely secondary to fatty liver though passage of gallbladder sludge and/or cholecystitis also considered. 1. HIDA 2. MRCP 3. Will consider ERCP if any choledocholithiasis. 4. Eventual OP management of what appears to be new cirrhosis on imaging. Present on Admission?: Yes Supervising Physician Co-Signing Physician Notes Late entry: Patient was seen and examined on 03/06 with CHERI Scott whose note reflects our findings and plan. Patient admitted with altered mental s tatus and XAVIER. Multiple comorbidities. Developed RUQ pain. LFTs noted to increase. US with fatty liver, ?early cirrhosis and GB sludge and wall thickening. No debo dil. Agree with HIDA and MRCP. May need to consider surgery consult. History of Present Illness Reason for Consultation: elevated LFTs Requesting Physician: Dr. Win Attending Physician: Mi Win MD History of Present Illness Mr. Wang is a 64 yr old male pt of Dr. Nora Womack with a hx of A-fib on coumadin, COPD, Pulmonary HTN, cardiomyopathy, HTN, DM-2, CKD 3 who was brought to [facility] by his brother on 03/02 for altered mental status and worsening renal labs (Cr 4 today). Notes mention a general decline in the past few months, with a 40 # weight loss. GI is consulted for elevated LFTs. US imaging with fatty liver, possible early cirrhosis. Portal vein is patent. There is gallbladder sludge and wall thickening are present. LFTs: T Bili 1.5->2.4, AST 0.8-> 1.0,. ALT 137->235, Alk Phos 72->100. Pt denies any current or recent abdominal pain, yellow skin or eyes. He is also not aware of any liver problems/cirrhosis. Allergies Allergy/AdvReac Type Severity Reaction Status Date / Time No Known Allergies Allergy Mild Verified 03/02/20 11:50 Home Medications Home Medications Medication Instructions Recorded Confirmed Type aspirin 81 mg tablet,delayed 81 mg PO DAILY #30 tab 11/29/19 03/02/20 History release amlodipine 10 mg tablet 5 mg PO BID #30 tab 02/28/20 03/02/20 Rx furosemide 40 mg tablet 40 mg PO DAILY PRN #30 tab 02/28/20 03/02/20 Rx ipratropium 20 mcg-albuterol 100 1 puff INHALATION QID PRN #4 gm 02/28/20 03/02/20 Rx mcg/actuation mist for inhalation lisinopril 10 mg tablet 10 mg PO DAILY #30 tab 02/28/20 03/02/20 Rx metoprolol succinate 200 mg 200 mg PO DAILY #30 tab 02/28/20 03/02/20 Rx tablet,extended release 24 hr tramadol 50 mg tablet 50 mg PO Q8H PRN #30 tab 02/28/20 03/02/20 Rx Patient History Medical History Atrial fibrillation (Acute) Back pain Cardiomyopathy CKD (chronic kidney disease) Elevated LFTs H/O: CVA (cerebrovascular accident) (Resolved) Hypertension (Chronic) Left bundle branch block (LBBB) (Acute) Pulmonary hypertension Tobacco abuse Type 2 diabetes mellitus (Chronic) Weight loss Surgical History History of facial surgery Family History Father Lymphoma Myocardial infarction Mother Lung cancer Social History Preferred Language: [place] Communication Ability: Effective Home Support Worker Required: No Beliefs That Will Affect Care: None marital status: Single Current Living Situation: Alone Other Information That Helps Us Care for You: No Feels Safe at Home: Yes Safety Concerns: Feels Safe At This Time Smoking Status: Former smoker Tobacco Type: cigarettes ; Age Started Using Tobacco: 14 ; Age Quit Using Tobacco: 48 ; Cigarettes Per Day: 10 ; Do You Dip or Chew Tobacco: No ; Second Hand Exposure: No ; Tobacco Cessation Education Requested by Patient: No Hx Alcohol Use: Yes Alcohol type: beer Hx Substance Use: No Review of Systems Review of Systems: ROS: Gen: + weakness, denies fevers, + weight loss Eyes: No eye redness, or pain, no recent vision changes Resp: + cough, mild SOB Cardio: + palpitations/irregular beats with hx A-fib, no chest pain GI: No abdominal pain, had one episode of nausea/vomiting yesterday, denies any today. : Denies pain on urination Skin: No jaundice, itching or new rashes Physical Exam Constitutional: WD/WN, vitals as above + obese Eyes: PERRL, conjunctivae normal, anicteric sclerae ENMT: external ear and nose normal, oropharynx normal Neck: trachea midline, no thyromegaly Respiratory: normal respiratory effort, lungs clear to auscultation Cardiovascular: RRR, no murmur, no edema Gastrointestinal (Abdomen): normal bowel sounds, soft, nontender, no hepatosplenomegaly Skin: no rashes, warm and dry Neurologic: PERRL, EOMI, accommodation nl, no face palsy, no dysarthria Psychiatric: A+Ox3, euthymic affect Affect: + flat affect Judgement: + limited judgement Results & Data ([place]) Vital Signs (Past 12 Hours) Vital Signs Temp Pulse Pulse Pulse Resp BP Pulse Ox 03/06/20 07:57 36.2 C L 80 18 121/74 93 03/06/20 07:25 73 03/06/20 04:00 36.7 C 69 17 152/79 H 98 Laboratory Results WBC 10, Hb 17, platelets 163. LFTs: T Bili 1.5->2.4, AST 0.8-> 1.0,. ALT 137->235, Alk Phos 72->100. Diagnostic Findings US: 1. The liver is enlarged and steatotic. Nodularity of the surface contour suggests early change of cirrhosis. 2. Biliary sludge is noted within a thick-walled and edematous appearing gallbladder. No shadowing gallstones are identified and there is trace pericholecystic fluid. A sonographic Frausto's sign is reportedly absent. These findings are nonspecific and could be related to adjacent hepatocellular disease. Acute cholecystitis is not excluded. If there strong clinical concern for acute cholecystitis a nuclear hepatobiliary scan should be considered. 3. There is trace perihepatic fluid.
[2020-03-06] MEDS: SODIUM BICARBONATE 8.4% 75 MEQ in D5W AND 1/2NSS 1,000 ML IV SCH (11:45)
--- NOTE | 2020-03-06 12:05 | Palliative Care Progress Note ---
Date of Service March 06, 2020 Assessment & Plan (1) Goals of care, counseling/discussion: -Palliative MD visited patient this afternoon. I spoke with his brother, Ivan, on phone. -Ivan feels that patient still lacks insight into the situation. Patient is not fully comprehending--stating to Ivan that he is ready to go home and that he is doing well. -Laura attempted to speak with patient about goals of care, and patient said he would be okay with dialysis "if that's what has to be done." Then in another sentence he would tell Ivan that he knew things weren't good, alluding to the realization that his prognosis is poor. -Ivan still favors a palliative approach, stating, "I dont want my brother to suffer." However he does not want to deny patient a trial of dialysis if needed. We will continue to discuss with the patient and his brother. -current plan is for SNF after hospitalization. -We will continue to follow. (2) Weight loss: (3) Severe protein-calorie malnutrition: (4) XAVIER (acute kidney injury): Subjective chart and labs reviewed. Cr 4.08, LFTs are worse today . Gall bladder US was done yesterday--concerning for cholecystitis. patient is on abx. HIDA scan today. Spoke with patient's brother, Ivan. Ivan was able to speak with patient several times yesterday and today. He states that patient is still not fully comprehending the gravity of the situation. Patient told his brother several times that he was well enough and ready to go home. Ivan had to remind him of how ill he is. Results & Data Vital Signs (Past 12 Hours) Vital Signs Temp Pulse Pulse Pulse Resp BP Pulse Ox 03/06/20 07:57 36.2 C L 80 18 121/74 93 03/06/20 07:25 73 03/06/20 04:00 36.7 C 69 17 152/79 H 98 Coding Level of Care Code 67656 Subseq Hosp Care Lvl 2 Diagnoses Goals of care, counseling/discussion Z71.89 Weight loss R63.4 Severe protein-calorie malnutrition E43 XAVIER (acute kidney injury) N17.9 Time Spent (min) 30 Time Spent Midlevel A total of 30 minutes spent by this ECLECTIC DOCTOR in reviewing chart, speaking with palliative MD, and speaking with patients brother regarding condition and goals.
--- NOTE | 2020-03-06 12:09 | Nephrology Progress Note ---
Date of Service March 06, 2020 Assessment & Plan (1) XAVIER (acute kidney injury): 64 Year old male with past medical history of hypertension, diabetes, stage III CKD, admitted to the hospital with XAVIER, generalized weakness and weight loss over last 1 month. Renal function has been relatively stable since admission, electrolyte acceptable. Remained nonoliguric. Urinalysis with trace proteinuria but no hematuria or pyuria. Unclear etiology for XAVIER, could be hemodynamically mediated with volume depletion with history of poor p.o. intake with concomitant use of diuretics and lisinopril. Urinalysis is not suggestive of any intrinsic renal pathology. History dense not suggestive of postrenal obstruction however cannot rule out the possibility. Renal function has been relatively stable without any changes, creatinine has been stable around 3.6-2 in 3.8, electrolyte acceptable. Volume status, blood pressure stable, decent urine output. Renal ultrasound showed otherwise normal size kidney without any hydronephrosis. Renal function continues to worsen with some electrolyte abnormality including metabolic acidosis however continues to have decent urine output, blood pressure and volume status acceptable. --as patient has been NPO, suggest starting on IV fluid with bicarb --continue to hold CHARITO-inhibitor/ARB, diuretics, monitor renal function electrolyte with daily renal panel --no acute indication for dialysis at this time, may need to discuss about dialysis if renal function continues to worsen in next 24-48 hours --hold discharge until we see definitive indication for improvement in renal function Will follow Admission and Anticipated Discharge Date Admission Date: March 02, 2020 Clinton Hernandez was seen and examined in his room this morning. He denies any shortness of breath or chest pain. Has been voiding normally. Blood pressure decent. Volume status acceptable. HIS currently NPO after his LFT was elevated and found to have a cholecystitis, waiting on HIDA scan and CT abdomen and pelvis. Renal function continues to worsen with metabolic acidosis. Review of Systems Review of Systems: All systems reviewed & are unremarkable except as noted in HPI & below Physical Exam Constitutional: WD/WN, vitals as above no acute distress Respiratory: normal respiratory effort, lungs clear to auscultation Cardiovascular: RRR, no murmur, no edema Skin: no rashes, warm and dry Neurologic: moves all extremities and awake; no focal motor deficits and not confused Psychiatric: A+Ox3, euthymic affect Results & Data ([facility]) Vital Signs (Past 12 Hours) Vital Signs Temp Pulse Pulse Pulse Resp BP Pulse Ox 03/06/20 07:57 36.2 C L 80 18 121/74 93 03/06/20 07:25 73 03/06/20 04:00 36.7 C 69 17 152/79 H 98 PG Care Time/CCT Total # of Minutes Spent Total Time Spent with Patient: Total time spent is greater than 50% in coordination of care (as documented) at patient's floor/unit and/or counseling patient: Coding Level of Care Code 96415 Subseq Hosp Care Lvl 3 Diagnoses XAVIER (acute kidney injury) N17.9
--- NOTE | 2020-03-06 13:46 | Magnetic Resonance Report ---
MRCP CLINICAL HISTORY: elevated bilirubin TECHNIQUE: Utilizing a 1.5 Hermila magnet and dedicated coil, multiplanar, multiecho imaging of the upp er abdomen was performed utilizing heavily T2 weighted pulsing sequences without IV contrast. COMPARISON STUDY: Right upper quadrant ultrasound March 05, 2020. FINDINGS: This exam is moderately compromised by motion artifact. Imaged portions of the chest demons trate small bilateral pleural effusions. There is moderate cardiomegaly. There is mild dilatation of the IVC and hepatic veins. A small amount of ascites is noted within the abdomen. There is evidence f or mild volume overload. No intra or extrahepatic biliary ductal dilatation is present. Common bile m easures 3 mm in caliber. Sensitivity for detection of common bile duct calculi is diminished on this exam given motion artifact but none are identified. There is pancreatic glandular atrophy without holder creatic ductal dilatation. There is no hydronephrosis. Unenhanced images of the spleen, adrenal gland s and kidneys are unremarkable. The caliber of visualized small and large bowel are normal. IMPRESSION: 1. No biliary ductal dilatation. No common bile duct calculi identified although sensitivity diminish ed on this exam given motion artifact. 2. Evidence for volume overload. Small amount of ascites and small bilateral pleural effusions. 3. Moderate cardiomegaly. ACT 112: Negative or not required by law. Electronically signed by: Sukhwinder Womack M.D. 03/06/2020 1:45 PM
--- NOTE | 2020-03-06 14:01 | Palliative Care Progress Note ---
Date of Service March 06, 2020 Assessment & Plan (1) Goals of care, counseling/discussion: -. Patient does not fully understand his current multiple medical issues--stating he is ready to go home tomorrow and take care of himself. Patient is ignoring the fact that he was unable to stand with therapy earlier today. Patient's understanding of his current diseases is that they are mild and fixable. -Patient with waxing and waning confusion-can certainly be due to metabolic imbalances. Will await GI input as well as nephrology. Patient would likely benefit from at least short-term dialysis to see if mentation improves -We will continue to follow and assist patient and family with medical decision making. (2) Weight loss: Review of medical records shows patient's weight was 272 pounds in May 2019, was 254 pounds this past November and was 225 on admission. (3) XAVIER (acute kidney injury): May be contributing to confusion-patient is agreeable to give dialysis a try, may benefit from at least some short-term dialysis to see if his mentation improves (4) Elevated LFTs: AST/ALT and bilirubin continue to rise, can be contributing to his confusion. Abdominal ultrasound shows biliary sludge with thick-walled, edematous gallbladder, no gallstones. (5) Weakness: Patient will likely require rehab at skilled facility to regain strength, improve ambulation in order to return home (6) Acute confusion: Await input from GI regarding etiology of elevated LFTs. Will likely require at least short-term dialysis to see if mentation improves due to increasing BUN/creatinine Subjective Patient seen and examined-patient sitting upright with bed in chair position. Patient appears more short of breath on exam today. Patient denies feeling more short of breath, also appears to be slightly more confused. Patient's confusion has waxed and waned throughout the day. Patient was seen by therapy-was unable to stand. Collaborated with patient's attending physician as well as his nurses. Also spoke to longtime family friend, Dr. Rodriguez, with patient's permission. Patient states he did speak with his brother yesterday regarding hemodialysis- stated his decision is "still up in the air" Review of Systems Review of Systems: Patient denies pain, fever, chills, chest pain, increased shortness of breath, or abdominal pain Physical Exam Physical Exam: PE: Patient awake, alert, slight increased shortness of breath with conversation and at rest HEENT: EOMI, hearing within normal limits Respiration: Increased respiratory rate, no rales on exam CV: Regular rate, no lower extremity edema Abdomen: Soft, nontender, obese Extremities: Generalized weakness Neuro: Awake, alert, slightly more confused compared to exam yesterday Psych: Poor insight in regards to his medical health Results & Data Vital Signs (Past 12 Hours) Vital Signs Temp Pulse Pulse Pulse Resp BP BP 03/06/20 12:13 98.6 F 88 18 118/63 03/06/20 07:57 97.2 F L 80 18 121/74 03/06/20 07:25 73 03/06/20 04:00 98.1 F 69 17 152/79 H Pulse Ox 03/06/20 12:13 95 03/06/20 07:57 93 03/06/20 07:25 03/06/20 04:00 98 PG Care Time/CCT Total # of Minutes Spent Total Time Spent with Patient: Total time spent is with greater than 50% of the time spent at bedside evaluating patient's current condition as well as his ability to make medical decisions. Collaborated with Dr. Rodriguez as well as attending physician on patient's floor/unit Coding Level of Care Code 48244 Subseq Hosp Care Lvl 3 Diagnoses Goals of care, counseling/discussion Z71.89 Weight loss R63.4 XAVIER (acute kidney injury) N17.9 Elevated LFTs R79.89 Weakness R53.1 Acute confusion R41.0 Time Spent (min) 45
[2020-03-06] MEDS ORDERED: SODIUM CHLORIDE 0.9% IV SCH (14:30)
[2020-03-06] MEDS ORDERED: SINCALIDE IV SCH (14:30)
--- NOTE | 2020-03-06 15:11 | Nuclear Medicine Report ---
NM hepatobiliary HISTORY: Pain. Nausea. r/o acute cholecystitis COMPARISON: None. TECHNIQUE: Immediately following the intravenous administration of 5.3 mCi Tc-99m Choletec, dynamic a nterior abdominal imaging was performed. FINDINGS: Limited or nondiagnostic study. Patient declined additional diagnostic images. Initial images 250 minutes demonstrate activity present within the small bowel as well as common bile duct. The gallbladder is not identified. Patient declined further images. IMPRESSION: 1. Very limited and/or near nondiagnostic study. 2. Probable incomplete and/or nonvisibility of the gallbladder raising the possibility of acute christopher cystitis. 3. Note is made that this is an incomplete exam ACT 112: Negative or not required by law. The above report was generated using voice recognition software. It may contain grammatical, syntax or spelling errors. Electronically signed by: Jose A Baker M.D. 03/06/2020 3:10 PM
--- NOTE | 2020-03-06 16:39 | Surgery Consultation ---
Date of Consultation March 06, 2020 Assessment & Plan (1) Elevated LFTs: This is a 64yM with a PMH significant for afib on coumadin, cardiomyopathy, pulmonary hypertension, DM2, h/o CVA, who presents to the [facility] ED on 03/02 with loss of appetite leading to weakness and XAVIER as evident on recent labs recently ordered by his PCP. During this admission it was noted that the patient had elevated LFT's prompting further workup. Of significance RUQ US showed concern for cirrhosis along with biliary sludge & trace pericholecystic fluid, without stones. Both MRCP and HIDA were limited studies that revealed no CBD stones or ductal dilation, with the HIDA scan raising possibility of acute cholecystitis due to probable incomplete vs nonvisualization of the gallbladder. Today Tbili: 2.4, Dbili: 1, AST: 276, ALT: 100, AlkP: 235. On examination patient's abdomen is soft, non-distended, and non tender in the RUQ. He denies nausea and has been tolerating liquid diet. Patient has significant medical issues including DM2, cardiomyopathy, and recent XAVIER of which nephrology is following for possible dialysis needs and palliative following regarding goals of care. Regarding patient's abdominal exam, normal WBC of 10, and imaging studies it is not clear that this patient has acute cholecystitis. Elevated LFT's could be an element of liver disease and possibility of cirrhosis seen on RUQ US? At this time we would not opt for surgical intervention for this patient. Will follow up on his CT a/p. Would continue to trend labs and advance diet as tolerates. Supervising Physician Co-Signing Physician Notes Patient seen and examined, labs and imaging reviewed, agree with above. 64 y/o male with mult med problems admitted with confusion. Afib on coumadin, chf with LVEF 30%, stage III/IV CKD, dm, pulm hypertension. Reported weight loss, loss of appetite. Elevated LFT's, RUQUS with sludge and contracted gbw with moderate thickening, also signs of early cirrhosis. MRCP with normal CBD, no stones, no filling defect. HIDA incomplete study, non filling of GB but may indicate cholecystitis. Denies post prandial pain. AFVSS, abd soft, nd, nt. No RUQ TTP. labs as above, normal wbc. CT Abd/pel with no acute process. Overall this does not appear to be acute cholecystitis, and given multiple significant medical problems and progressive decline, would not recommend surgical intervention. May consider percutaneous cholecystostomy tube if acalculus cholecystitis is still clinical concern, but do not think this is necessary at this time. May be primary hepatic problem with early cirrhosis. Will follow peripherally, Please call with questions or concerns. History of Present Illness Attending Physician: Mi Win MD History of Present Illness This is a 64yM with a PMH significant for afib on coumadin, cardiomyopathy, pulmonary hypertension, DM2, & h/o CVA, who presents to the [facility] ED on 03/02 with loss of appetite leading to weakness and XAVIER as evident on recent labs ordered by his PCP who called him to come to the ED for evaluation. The patient has been monitored by the hospitalist and nephrology for management of his XAVIER. During this admission it was noted that the patient had elevated LFT's and he had vomited on the AM of 03/05 prompting imaging of his gallbladder. Of his studies- RUQ US showed concern for cirrhosis, no stones or ductal dilation, with trace pericholecystic fluid. MRCP showed no ductal dilation or CBD stones and HIDA obtained thereafter was a limited study and showed probable incomplete or non- visibility of the gallbladder, raising the possibility of acute cholecystitis. The patient reports a loss of appetite over the past few weeks and states that food is not as appetizing to him anymore. Outside of the episode of emesis on 03/05 he states he has not vomited in a long time. He says he usually steers away from greasy foods, but never had an issue with greasy or spicy foods in the past. He denies any change in bowel habits, fevers/chills, or abdominal pain at this time. He is currently drinking contrast for a CT chest/abd/pelvis to be performed this evening. Allergies Allergy/AdvReac Type Severity Reaction Status Date / Time No Known Allergies Allergy Mild Verified 03/02/20 11:50 Home Medications Home Medications Medication Instructions Recorded Confirmed Type aspirin 81 mg tablet,delayed 81 mg PO DAILY #30 tab 11/29/19 03/02/20 History release amlodipine 10 mg tablet 5 mg PO BID #30 tab 02/28/20 03/02/20 Rx furosemide 40 mg tablet 40 mg PO DAILY PRN #30 tab 02/28/20 03/02/20 Rx ipratropium 20 mcg-albuterol 100 1 puff INHALATION QID PRN #4 gm 02/28/20 03/02/20 Rx mcg/actuation mist for inhalation lisinopril 10 mg tablet 10 mg PO DAILY #30 tab 02/28/20 03/02/20 Rx metoprolol succinate 200 mg 200 mg PO DAILY #30 tab 02/28/20 03/02/20 Rx tablet,extended release 24 hr tramadol 50 mg tablet 50 mg PO Q8H PRN #30 tab 02/28/20 03/02/20 Rx Patient History Medical History Atrial fibrillation (Acute) Back pain Cardiomyopathy CKD (chronic kidney disease) Elevated LFTs H/O: CVA (cerebrovascular accident) (Resolved) Hypertension (Chronic) Left bundle branch block (LBBB) (Acute) Pulmonary hypertension Tobacco abuse Type 2 diabetes mellitus (Chronic) Weight loss Surgical History History of facial surgery Family History Father Lymphoma Myocardial infarction Mother Lung cancer Social History Preferred Language: Spanish Communication Ability: Effective Early Breastfeeding Care Specialist Required: No Beliefs That Will Affect Care: None marital status: Single Current Living Situation: Alone Other Information That Helps Us Care for You: No Feels Safe at Home: Yes Safety Concerns: Feels Safe At This Time Smoking Status: Former smoker Tobacco Type: cigarettes ; Age Started Using Tobacco: 14 ; Age Quit Using Tobacco: 48 ; Cigarettes Per Day: 10 ; Do You Dip or Chew Tobacco: No ; Second Hand Exposure: No ; Tobacco Cessation Education Requested by Patient: No Hx Alcohol Use: Yes Alcohol type: beer Hx Substance Use: No Review of Systems Constitutional: no fever and no chills Ear, Nose, Mouth, Throat: + sore throat Gastrointestinal: + vomiting (once, 2 days ago); no abdominal pain, no bloating, no heartburn, no nausea and no change in bowel habits Physical Exam Physical Exam: awake/alert Constitutional: no acute distress Respiratory: normal respiratory effort Gastrointestinal (Abdomen): Inspection/Auscultation: abdomen not distended Percussion/Palpation: abdomen soft; abdomen nontender Results & Data Vital Signs (Past 12 Hours) Vital Signs Temp Pulse Pulse Resp BP BP Pulse Ox 03/06/20 15:23 36.2 C L 77 17 120/95 93 03/06/20 12:13 37.0 C 88 18 118/63 95 03/06/20 07:57 36.2 C L 80 18 121/74 93 03/06/20 07:25 73 ULTRASOUND RIGHT UPPER QUADRANT ABDOMEN CLINICAL HISTORY: Right upper quadrant abdominal pain. Elevated hepatic t ransaminases. COMPARISON STUDY: No priors. TECHNIQUE: Real-time, grayscale, and color flow sonography of the right upper quadrant of the abdomen was performed. Images are reviewed in the transverse and longitudinal planes. FINDINGS: Liver: The liver is enlarged and demonstrates heterogeneously increased echotexture consistent with hepatic steatosis. There is nodularity of the hepatic surface contour. There is no intrahepatic biliary ductal dilatation. The main portal vein is patent. A 2.2 cm cyst is noted in the right lobe. Gallbladder: Biliary sludge is noted. No shadowing gallstones are identified. The gallbladder wall is thickened measuring up to 6 mm there is trace pericholecystic fluid. A sonographic Frausto's sign is reportedly absent. The common bile duct measures up to 0.3 cm in diameter. Pancreas: Visualized portions of the pancreatic head are normal as imaged. The majority of the pancreas was not visualized. Right kidney: Survey images of the right kidney demonstrate mild cortical atrophy. There is no hydronephrosis. Ascites: There is trace perihepatic free fluid. IMPRESSION: 1. The liver is enlarged and steatotic. Nodularity of the surface contour suggests early change of cirrhosis. 2. Biliary sludge is noted within a thick-walled and edematous appearing gallbladder. No shadowing gallstones are identified and there is trace pericholecystic fluid. A sonographic Frausto's sign is reportedly absent. These findings are nonspecific and could be related to adjacent hepatocellular disease. Acute cholecystitis is not excluded. If there strong clinical concern for acute cholecystitis a nuclear hepatobiliary scan should be considered. 3. There is trace perihepatic fluid. 4. No intra or extrahepatic biliary ductal dilatation is identified. ACT 112: Negative or not required by law. Electronically signed by: Chirag Valles M.D. 03/05/2020 6:40 PM MRCP CLINICAL HISTORY: elevated bilirubin TECHNIQUE: Utilizing a 1.5 Hermila magnet and dedicated coil, multiplanar, multiecho imaging of the upper abdomen was performed utilizing heavily T2 weighted pulsing sequences without IV contrast. COMPARISON STUDY: Right upper quadrant ultrasound March 05, 2020. FINDINGS: This exam is moderately compromised by motion artifact. Imaged portions of the chest demonstrate small bilateral pleural effusions. There is moderate cardiomegaly. There is mild dilatation of the IVC and hepatic veins. A small amount of ascites is noted within the abdomen. There is evidence for mild volume overload. No intra or extrahepatic biliary ductal dilatation is present. Common bile measures 3 mm in caliber. Sensitivity for detection of common bile duct calculi is diminished on this exam given motion artifact but none are identified. There is pancreatic glandular atrophy without pancreatic ductal dilatation. There is no hydronephrosis. Unenhanced images of the spleen, adrenal glands and kidneys are unremarkable. The caliber of visualized small and large bowel are normal. IMPRESSION: 1. No biliary ductal dilatation. No common bile duct calculi identified although sensitivity diminished on this exam given motion artifact. 2. Evidence for volume overload. Small amount of ascites and small bilateral pleural effusions. 3. Moderate cardiomegaly. ACT 112: Negative or not required by law. Electronically signed by: Sukhwinder Womack M.D. 03/06/2020 1:45 PM NM hepatobiliary HISTORY: Pain. Nausea. r/o acute cholecystitis COMPARISON: None. TECHNIQUE: Immediately following the intravenous administration of 5.3 mCi Tc- 99m Choletec, dynamic anterior abdominal imaging was performed. FINDINGS: Limited or nondiagnostic study. Patient declined additional diagnostic images. Initial images 250 minutes demonstrate activity present within the small bowel as well as common bile duct. The gallbladder is not identified. Patient declined further images. IMPRESSION: 1. Very limited and/or near nondiagnostic study. 2. Probable incomplete and/or nonvisibility of the gallbladder raising the possibility of acute cholecystitis. 3. Note is made that this is an incomplete exam ACT 112: Negative or not required by law. The above report was generated using voice recognition software. It may contain grammatical, syntax or spelling errors. Electronically signed by: Jose A Baker M.D. 03/06/2020 3:10 PM PG Care Time/CCT Total # of Minutes Spent Total Time Spent with Patient: Total time spent is greater than 50% in coordination of care (as documented) at patient's floor/unit and/or counseling patient: Coding Level of Care Code 72225 Initial Inpt Care Lvl 2 Diagnoses Elevated LFTs R79.89
--- NOTE | 2020-03-06 18:48 | CT Scan Report ---
CT chest wo con, CT abd pelvis oral con only CT DOSE: 2317.14 mGy.cm CLINICAL HISTORY: 64 years-old Male with weight loss,h/osmoking,r/o CA. Acute weight loss with histo ry of tobacco abuse. TECHNIQUE: Multiaxial CT images of the chest, abdomen and pelvis were performed without IV contrast.. Enteric contrast was utilized. A dose lowering technique was utilized adhering to the principles of ALARA. COMPARISON: MRCP 03/06/2020, lumbar spine radiographs 03/02/2020, chest radiographs 05/03/2007. FINDINGS: CT CHEST: No thyroid nodule. Nonspecific mildly enlarged subcarinal lymph node measures 11 mm. Additionally, th ere are prominent and mildly enlarged paratracheal lymph nodes, measuring up to 10 mm. Moderate cardi omegaly. No pericardial effusion. Extensive coronary artery calcifications. Mild fusiform dilation of the ascending thoracic aorta, 4.1 x 4.1 cm. Mild dilation of the main pulmonary artery. Small layering bilateral pleural effusions. No pneumothorax. Left greater than right bibasilar depend ent groundglass densities suggest atelectasis. No lobar airspace consolidation or overt pulmonary ronaldo ma. The central airways appear patent. 1.3 cm central upper chest dermal lesion is noted on image 48 series 6, possibly reflective of a sebaceous cyst. Degenerative changes of the shoulders and spine. N o acute fracture or suspicious bone lesion identified. Multilevel spondylitic spurring and facet arth rosis. CT ABDOMEN/PELVIS: There is no pneumatosis or pneumoperitoneum. Limited evaluation of the solid abdominal organs without the use of IV contrast. Within the limitations of the study, the spleen and adrenal glands are unrem arkable. Moderate generalized pancreatic atrophy. Hypodense lesion of the inferior right hepatic lobe measures 2.4 cm with water attenuation suggestive of a probable cyst. The liver is otherwise unremar kable. Mildly increased density of the gallbladder may reflect underlying gallbladder sludge. No bili nate ductal dilation. Trace abdominopelvic ascites. Mild nonspecific bilateral perinephric stranding. No obstructive uropathy. Partial distention of the bladder. Mild prostatomegaly. Calcified plaque of the abdominal aorta without aneurysm. Unremarkable IVC. There is no adenopathy. No bowel obstruction or bowel wall thickening. Motion degradation limits the study. Mild colonic diverticulosis without acute diverticulitis. Visualized appendix appears non inflamed. Small fat filled periumbilical hernia, diastasis 2.2 cm. No ascites or mesenteric inflammat ion. Diffuse generalized body wall edema. Degenerative changes of the spine, pelvis and hips. No acut e fracture or suspicious bone lesion. Severe disc space narrowing with circumferential disc osteophyt e complex at L5-S1. IMPRESSION: 1. Cardiomegaly with volume overload, manifested by small pleural effusions, trace abdominopelvic asc ites and generalized body wall edema. 2. No infectious or inflammatory process identified within the chest, abdomen or pelvis. 3. No bowel obstruction or bowel wall thickening. 4. Additional findings as above. ACT 112: Negative or not required by law. Dictated: 03/06/2020 5:40 PM Transcribed: 03/06/2020 6:25 PM Giulia [id number] LANA_[facility] Electronically signed by: Osmin Shirley M.D. 03/06/2020 6:46 PM
[2020-03-07] MEDS: SODIUM BICARBONATE 8.4% 75 MEQ in D5W AND 1/2NSS 1,000 ML IV SCH ×2 (01:27→14:59)
[2020-03-07 07:27] LABS: Basophils # (auto) 0.01 K/uL (0-0.2); Basophils % (auto) 0.1 %; Eosinophils # (auto) 0.16 K/uL (0-0.5); Eosinophils % (auto) 1.5 %; Hemoglobin 15.8 g/dL (14.0-18.0); Immature Granulocytes # (auto) 0.03 K/uL (0.00-0.02); Immature Granulocytes % (auto) 0.3 %; Lymphocytes # (auto) 1.42 K/uL (1.2-3.4); Lymphocytes % (auto) 13.1 %; Mean Corpuscular Hemoglobin 29.4 pg (25-34); Mean Corpuscular Hgb Conc 33.6 g/dL (32-36); Mean Corpuscular Volume 87.5 fL (80-100); Mean Platelet Volume 11.4 fL (7.4-10.4); Monocytes # (auto) 0.81 K/uL (0.11-0.59); Monocytes % (auto) 7.5 %; Neutrophils # (auto) 8.39 K/uL (1.4-6.5); Neutrophils % (auto) 77.5 %; Nucleated RBC # (auto) 0.05 K/uL (0-0); Nucleated RBC % (auto) 0.5 %; Platelet Count 135 K/uL (130-400); RDW Standard Deviation 55.3 fL (36.4-46.3); Red Blood Count 5.37 M/uL (4.7-6.1); White Blood Count 10.82 K/uL (4.8-10.8)
[2020-03-07 07:39] LABS: INR 2.4 (0.9-1.1); Prothrombin Time 23.7 Seconds (9.0-12.0)
[2020-03-07 07:53] LABS: Albumin Level 2.8 gm/dl (3.4-5.0); BUN Creatinine Ratio 17.8 (10-20); Bilirubin Direct 0.8 mg/dl (0-0.2); Calcium 8.6 mg/dl (8.5-10.1); Creatinine Clr Calc Pharmacy 24.2 ml/min; Est GFR (African American) 18.1; Est GFR (Non-African American) 15.6; Magnesium 1.9 mg/dl (1.8-2.4); Phosphorus 3.7 mg/dl (2.5-4.9); Potassium 3.9 mmol/L (3.5-5.1); Total Protein 5.6 gm/dl (6.4-8.2)
[2020-03-07] MEDS: INSULIN ASPART 100 UNITS/ML 3 ML PEN SC SCH ×4 (08:02→21:14)
[2020-03-07] MEDS: METOPROLOL SUCC 50MG EXT REL TAB PO SCH (08:02)
[2020-03-07] MEDS: PIPERACILLIN/TAZOBACTAM 3.375 GM in DEXTROSE 5% 100 ML IV SCH ×2 (08:16→21:06)
--- NOTE | 2020-03-07 11:15 | Nephrology Progress Note ---
Date of Service March 07, 2020 Assessment & Plan (1) XAVIER (acute kidney injury): 64 Year old male with past medical history of hypertension, diabetes, stage III CKD, admitted to the hospital with XAVIER, generalized weakness and weight loss over last 1 month. Renal function has been relatively stable since admission, electrolyte acceptable. Remained nonoliguric. Urinalysis with trace proteinuria but no hematuria or pyuria. Unclear etiology for XAVIER, could be hemodynamically mediated with volume depletion with history of poor p.o. intake with concomitant use of diuretics and lisinopril. Urinalysis is not suggestive of any intrinsic renal pathology. History dense not suggestive of postrenal obstruction however cannot rule out the possibility. Renal function has been relatively stable without any changes, creatinine has been stable around 3.6-2 in 3.8, electrolyte acceptable. Volume status, blood pressure stable, decent urine output. Renal ultrasound showed otherwise normal size kidney without any hydronephrosis. Renal function relatively stable, continues to have decent urine output, blood pressure and volume status acceptable. --continue on IV fluid with bicarb @ 80 ml/h --continue to hold CHARITO-inhibitor/ARB, diuretics, monitor renal function electrolyte with daily renal panel --no acute indication for dialysis at this time, may need to discuss about dialysis if renal function continues to worsen in next 24-48 hours --hold discharge until we see definitive indication for improvement in renal function Will follow Admission and Anticipated Discharge Date Admission Date: March 02, 2020 Physical Exam Constitutional: WD/WN, vitals as above + obese; no acute distress Respiratory: normal respiratory effort Auscultation: + diminished lung sounds Cardiovascular: Rate/Rhythm: regular rate and + irregularly irregular Heart Sounds: normal S1 and normal S2 Neurologic: moves all extremities and awake; no focal motor deficits and not confused Psychiatric: A+Ox3, euthymic affect Results & Data ([facility]) Vital Signs (Past 12 Hours) Vital Signs Temp Pulse Pulse Resp BP Pulse Ox 03/07/20 07:55 36.5 C 124 H 18 126/64 98 03/07/20 07:14 132 H 03/07/20 03:33 36.3 C L 79 22 116/84 98 03/07/20 00:13 74 03/06/20 23:26 36.4 C L 76 17 112/74 94 PG Care Time/CCT Total # of Minutes Spent Total Time Spent with Patient: Total time spent is greater than 50% in coordination of care (as documented) at patient's floor/unit and/or counseling patient: Coding Level of Care Code 17614 Subseq Hosp Care Lvl 3 Diagnoses XAVIER (acute kidney injury) N17.9
[2020-03-07] MEDS: ASPIRIN 81 MG ECTAB PO SCH (11:17)
--- NOTE | 2020-03-07 15:06 | Hospitalist Progress Note ---
Date of Service March 07, 2020 Assessment & Plan (1) Acute confusion: Patient presented with acute metabolic encephalopathy-could be secondary to suspected acute cholecystitis as well as acute kidney injury Mentation much improved on 03/07 with improvement in renal function and after starting tx for suspected cholecystitis -Work-up and treatment for acute cholecystitis as below -Treatment for XAVIER as below (2) XAVIER (acute kidney injury): Multifactorial as patient was hypotensive, appeared dry and is on multiple nephrotoxic medications. He was apparently not able to get out of bed much at all the last few weeks and was urinating in a bucket in his living room where he was sleeping. He was not eating or drinking much at all. Renal function worsened with creatinine up to 4.08 and becoming acidotic--> now improving with continued hydration and with NaHCO3, certified professional midwife down to 3.78 Blood pressure is stable and continues to appear euvolemic He is urinating and is increasing today Renal ultrasound without evidence of obstruction Urinalysis is bland Appreciate nephrology consultation -continue gentle IV fluids today with D5 half-normal saline +75 mEq of sodium bicarbonate at 80 mL's per hour -Continue to hold lisinopril and lasix from home. -Continue to follow BMP and urine output-no indication for urgent dialysis -Patient states would consider trying dialysis, however he still seems confused and does not comply with much medical treatment currently-hard to believe he would be compliant with dialysis. His brother is aware of the situation and also does not think his brother would be able to tolerate dialysis-the brother has been discussing the situation with the patient on the phone -with renal function improving, no need for urgent HD at this time Appreciate palliative care consultation for goals of care (3) Elevated LFTs: LFTs increased in an obstructive/cholestatic pattern although he no longer has any abdominal pain He had an episode of nausea with vomiting on 03/05 after eating fatty sausage for breakfast and has continued loss of appetite Right upper quadrant ultrasound obtained which showed thickened gallbladder with sludge and trace pericholecystic fluid, CBD normal in size, also with hepatic steatosis and nodular liver contour MRCP obtained shows no choledocholithiasis HIDA scan-incomplete study as patient would not cooperate by following instructions, however the portion that was completed did show possible acute cholecystitis No leukocytosis, remains afebrile, although mentation has significantly improved with starting antibiotics CT Abd/pel not concerning for acute christopher Surgery says overall picture likely not acute christopher, but could consider percutaneous cholecystostomy tube if worsening; no surgical intervention here at this time LFTs improving today -Follow blood cultures-no growth to date -Continue empiric antibiotics with IV Zosyn for acute cholecystitis -Appreciate GI consultation-no need for ERCP -Follow LFTs in the morning, follow CBC -Can advance diet to full liquids and then likely to low fat diet tomorrow if LFTs ok (4) Weight loss: Patient reporting loss of 40 pounds over last couple of months. Has a loss of appetite and possible acute cholecystitis PSA is normal. No masses on head ct or cxr. -Checked CT of the chest/abdomen/pelvis with oral contrast only to assess for malignancy--no evidence of malignancy (5) Type 2 diabetes mellitus: Patient currently not taking any medications for this at home. Metformin was previously held due to elevated creatinine Hemoglobin A1c is 8.5% here -Continue use [employer] SS, diabetic diet at home he says he just eats [place] bars no hypoglycemia per his brother, he was not making any effort to manage his DM at home (6) Atrial fibrillation: Remains rate controlled. Continue metoprolol 200 mg daily Was placed on heparin bridge as he was subtherapeutic-heparin drip was discontinued when INR became therapeutic INR remains therapeutic today at 2.4 -ok to restart Coumadin as no planned surgical procedure for gallbladder -Follow INR in the morning Of note, was not compliant with Coumadin prior to admission, however with renal failure and no health insurance, he would not be able to use a DOAC (7) Back pain: Patient reports secondary to fall. Checked lumbar xray - no fracture or other abnormality He is very weak in the legs bilaterally but has been mostly laying around his house for many weeks--> improving today PT/OT and will need rehab placement (8) Hypoxia: Patient with suspected, but no formal diagnosis of COPD. Intermittently requiring 2 L nasal cannula but I do not suspect volume overload MRCP did show small bilateral pleural effusions Continue combivent. Titrate o2 to keep pulse ox greater than 88% Pulm htn likely contributing. Patient will eventually need right heart cath. Patient was discharged with nocturnal oxygen last admission but has not been using. (9) Hypertension: Continue to hold amlodipine and lisinopril due to hypotension and acute renal failure. Will continue to monitor, continue metoprolol as above (10) Cardiomyopathy: With chronic systolic CHF, LVEF 30-35% and with severe pulmonary hypertension on echo in 11/2019 Was volume depleted at the time of this admission and was given gentle IV fluids x2 days Is now euvolemic and certified professional midwife improving, good UOP -Continue holding home lisinopril and Lasix -Continue home Toprol-XL -Cardiology had discussed further workup including left heart cath when they saw him in November 2019 but declined at that time (11) CKD (chronic kidney disease): stage 3; baseline Cr about 1.5/1.6 Cr up to 4.0 here with acute kidney injury as above, now improving -Avoid nephrotoxins -renally dose meds when appropriate -follow BMP (12) Pulmonary hypertension: Severe as per echo 11/2019 -Likely secondary to lung disease (13) Tobacco abuse: Quit (14) Severe protein-calorie malnutrition: With significant weight loss and very poor appetite Dietary supplements will be encouraged once he is able to take p.o. (15) Thoracic aortic aneurysm: noted on CT CHest in ascending thoracic aorta--> measures 4.1 cm follow as outpt (16) DVT prophylaxis: Coumadin Disposition-continued stay for acute kidney injury, possible acute cholecystitis Eventually will need rehab/SNF placement versus hospice care if declines further Admission and Anticipated Discharge Date Admission Date: March 02, 2020 Subjective Pt reports feeling "much better" today. Feels stronger and is eager to start working with PT. Denies any abd pain and is having multiple large BMs in the last 24 hours. Is making urine. Denies nausea/vomiting. Denies chest pain or SOB. He seems pleased that his renal and liver function are both improving. Reports he talked to his brother today on the phone about everything regarding his situation. Also seems accepting of the fact he will need to go to rehab prior to returning home again. Much less confused today. Tele with Afib, rates in the 70s-80s Review of Systems Review of Systems: All systems reviewed & are unremarkable except as noted in HPI & below Physical Exam Constitutional: + obese; no acute distress Eyes: + anicteric sclerae Neck: trachea midline, no thyromegaly Respiratory: normal respiratory effort, lungs clear to auscultation Cardiovascular: Rate/Rhythm: regular rate and + irregularly irregular Heart Sounds: no murmur Extremities: no edema Chest (Breasts): Chest: normal inspection of chest Gastrointestinal (Abdomen): normal bowel sounds, soft, nontender, no hepatosplenomegaly Musculoskeletal: Extremities: extremities normal to inspection; no cyanosis and no clubbing Skin: no rashes, warm and dry Neurologic: moves all extremities and awake; no focal motor deficits (today with 5/5 strength throughout lower extremities bilat) and not confused Motor/Sensory: no tremor Psychiatric: Orientation: alert, oriented to person, oriented to place, oriented to time and cooperative Lymphatic: no lymphedema Results & Data Results & Data ([facility]) Vital Signs (Past 12 Hours) Vital Signs Temp Pulse Pulse Resp BP Pulse Ox 03/07/20 11:55 36.9 C 108 H 18 132/69 03/07/20 07:55 36.5 C 124 H 18 126/64 98 03/07/20 07:14 132 H 03/07/20 03:33 36.3 C L 79 22 116/84 98 Laboratory Results 03/07/20 03/07/20 03/07/20 Range/Units 21:13 16:44 11:24 WBC (4.8-10.8) K/uL RBC (4.7-6.1) M/uL Hgb (14.0-18.0) g/dL Hct (42-52) % MCV (80-100) fL MCH (25-34) pg MCHC (32-36) g/dL RDW Std Deviation (36.4-46.3) fL RDW Coeff of Liss (11.5-14.5) % Plt Count (130-400) K/uL MPV (7.4-10.4) fL Immature Gran % (Auto) % Neut % (Auto) % Lymph % (Auto) % Posey % (Auto) % Eos % (Auto) % Baso % (Auto) % Immature Gran # (Auto) (0.00-0.02) K/uL Neut # (Auto) (1.4-6.5) K/uL Lymph # (Auto) (1.2-3.4) K/uL Posey # (Auto) (0.11-0.59) K/uL Eos # (Auto) (0-0.5) K/uL Baso # (Auto) (0-0.2) K/uL Absolute Nucleated RBC (0-0) K/uL Nucleated RBC % (auto) % PT (9.0-12.0) Seconds INR (0.9-1.1) Sodium (136-145) mmol/L Potassium (3.5-5.1) mmol/L Chloride (98-107) mmol/L Carbon Dioxide (21-32) mmol/L Anion Gap (3-11) BUN (7-18) mg/dl Creatinine (0.6-1.4) mg/dl Est Cr Clr Drug Dosing ml/min Est GFR ( Amer) Est GFR (Non-Af Amer) BUN/Creatinine Ratio (10-20) Glucose (70-99) mg/dl POC Glucose 142 H 224 H 135 H (70-99) mg/dl Calcium (8.5-10.1) mg/dl Phosphorus (2.5-4.9) mg/dl Magnesium (1.8-2.4) mg/dl Total Bilirubin (0.2-1) mg/dl Direct Bilirubin (0-0.2) mg/dl AST (15-37) U/L ALT (12-78) U/L Alkaline Phosphatase (45-117) U/L Total Protein (6.4-8.2) gm/dl Albumin (3.4-5.0) gm/dl 03/07/20 03/07/20 03/07/20 Range/Units 07:29 06:56 06:56 WBC (4.8-10.8) K/uL RBC (4.7-6.1) M/uL Hgb (14.0-18.0) g/dL Hct (42-52) % MCV (80-100) fL MCH (25-34) pg MCHC (32-36) g/dL RDW Std Deviation (36.4-46.3) fL RDW Coeff of Liss (11.5-14.5) % Plt Count (130-400) K/uL MPV (7.4-10.4) fL Immature Gran % (Auto) % Neut % (Auto) % Lymph % (Auto) % Posey % (Auto) % Eos % (Auto) % Baso % (Auto) % Immature Gran # (Auto) (0.00-0.02) K/uL Neut # (Auto) (1.4-6.5) K/uL Lymph # (Auto) (1.2-3.4) K/uL Posey # (Auto) (0.11-0.59) K/uL Eos # (Auto) (0-0.5) K/uL Baso # (Auto) (0-0.2) K/uL Absolute Nucleated RBC (0-0) K/uL Nucleated RBC % (auto) % PT 23.7 H (9.0-12.0) Seconds INR 2.4 H (0.9-1.1) Sodium 135 L (136-145) mmol/L Potassium 3.9 D (3.5-5.1) mmol/L Chloride 102 (98-107) mmol/L Carbon Dioxide 23 (21-32) mmol/L Anion Gap 10.0 (3-11) BUN 67 H (7-18) mg/dl Creatinine 3.78 H (0.6-1.4) mg/dl Est Cr Clr Drug Dosing 24.2 ml/min Est GFR ( Amer) 18.1 Est GFR (Non-Af Amer) 15.6 BUN/Creatinine Ratio 17.8 (10-20) Glucose 152 H (70-99) mg/dl POC Glucose 160 H (70-99) mg/dl Calcium 8.6 (8.5-10.1) mg/dl Phosphorus 3.7 (2.5-4.9) mg/dl Magnesium 1.9 (1.8-2.4) mg/dl Total Bilirubin 2.0 H (0.2-1) mg/dl Direct Bilirubin 0.8 H (0-0.2) mg/dl AST 126 H (15-37) U/L ALT 171 H (12-78) U/L Alkaline Phosphatase 88 (45-117) U/L Total Protein 5.6 L (6.4-8.2) gm/dl Albumin 2.8 L (3.4-5.0) gm/dl 03/07/20 Range/Units 06:56 WBC 10.82 H (4.8-10.8) K/uL RBC 5.37 (4.7-6.1) M/uL Hgb 15.8 (14.0-18.0) g/dL Hct 47.0 (42-52) % MCV 87.5 (80-100) fL MCH 29.4 (25-34) pg MCHC 33.6 (32-36) g/dL RDW Std Deviation 55.3 H (36.4-46.3) fL RDW Coeff of Liss 18.0 H (11.5-14.5) % Plt Count 135 (130-400) K/uL MPV 11.4 H (7.4-10.4) fL Immature Gran % (Auto) 0.3 % Neut % (Auto) 77.5 % Lymph % (Auto) 13.1 % Posey % (Auto) 7.5 % Eos % (Auto) 1.5 % Baso % (Auto) 0.1 % Immature Gran # (Auto) 0.03 H (0.00-0.02) K/uL Neut # (Auto) 8.39 H (1.4-6.5) K/uL Lymph # (Auto) 1.42 (1.2-3.4) K/uL Posey # (Auto) 0.81 H (0.11-0.59) K/uL Eos # (Auto) 0.16 (0-0.5) K/uL Baso # (Auto) 0.01 (0-0.2) K/uL Absolute Nucleated RBC 0.05 H (0-0) K/uL Nucleated RBC % (auto) 0.5 % PT (9.0-12.0) Seconds INR (0.9-1.1) Sodium (136-145) mmol/L Potassium (3.5-5.1) mmol/L Chloride (98-107) mmol/L Carbon Dioxide (21-32) mmol/L Anion Gap (3-11) BUN (7-18) mg/dl Creatinine (0.6-1.4) mg/dl Est Cr Clr Drug Dosing ml/min Est GFR ( Amer) Est GFR (Non-Af Amer) BUN/Creatinine Ratio (10-20) Glucose (70-99) mg/dl POC Glucose (70-99) mg/dl Calcium (8.5-10.1) mg/dl Phosphorus (2.5-4.9) mg/dl Magnesium (1.8-2.4) mg/dl Total Bilirubin (0.2-1) mg/dl Direct Bilirubin (0-0.2) mg/dl AST (15-37) U/L ALT (12-78) U/L Alkaline Phosphatase (45-117) U/L Total Protein (6.4-8.2) gm/dl Albumin (3.4-5.0) gm/dl PG Care Time/CCT Total # of Minutes Spent Total Time Spent with Patient: Total time spent is greater than 50% in coordination of care (as documented) at patient's floor/unit and/or counseling patient: Coding Level of Care Code 77162 Subseq Hosp Care Lvl 3 Diagnoses Acute confusion R41.0 XAVIER (acute kidney injury) N17.9 Elevated LFTs R79.89 Weight loss R63.4 Type 2 diabetes mellitus E11.9 Atrial fibrillation I48.91 Atrial fibrillation type: unspecified Back pain M54.9 Hypoxia R09.02 Hypertension I10 Cardiomyopathy I42.9 CKD (chronic kidney disease) N18.9 Pulmonary hypertension I27.20 Tobacco abuse Z72.0 Severe protein-calorie malnutrition E43 Thoracic aortic aneurysm I71.2 DVT prophylaxis Z29.9 (1) Atrial fibrillation Atrial fibrillation type: unspecified Qualified Code(s): I48.91 - Unspecified atrial fibrillation
[2020-03-07] MEDS: WARFARIN SOD 2 MG TAB PO SCH (16:55)
[2020-03-08] MEDS: SODIUM BICARBONATE 8.4% 75 MEQ in D5W AND 1/2NSS 1,000 ML IV SCH (03:40)
[2020-03-08 07:30] LABS: Basophils # (auto) 0.01 K/uL (0-0.2); Basophils % (auto) 0.1 %; Eosinophils # (auto) 0.16 K/uL (0-0.5); Eosinophils % (auto) 1.8 %; Hematocrit (blood only) 46.6 % (42-52); Hemoglobin 15.6 g/dL (14.0-18.0); Immature Granulocytes # (auto) 0.02 K/uL (0.00-0.02); Immature Granulocytes % (auto) 0.2 %; Lymphocytes # (auto) 1.45 K/uL (1.2-3.4); Mean Corpuscular Hemoglobin 29.7 pg (25-34); Mean Corpuscular Hgb Conc 33.5 g/dL (32-36); Mean Corpuscular Volume 88.8 fL (80-100); Mean Platelet Volume 11.2 fL (7.4-10.4); Monocytes # (auto) 0.83 K/uL (0.11-0.59); Monocytes % (auto) 9.2 %; Neutrophils # (auto) 6.58 K/uL (1.4-6.5); Neutrophils % (auto) 72.7 %; Platelet Count 113 K/uL (130-400); RDW Coefficient of Variation 18.4 % (11.5-14.5); RDW Standard Deviation 57.2 fL (36.4-46.3); Red Blood Count 5.25 M/uL (4.7-6.1); White Blood Count 9.05 K/uL (4.8-10.8)
[2020-03-08 07:39] LABS: INR 2.3 (0.9-1.1); Prothrombin Time 23.5 Seconds (9.0-12.0)
[2020-03-08 07:59] LABS: Albumin Level 2.9 gm/dl (3.4-5.0); BUN Creatinine Ratio 18.2 (10-20); Bilirubin Direct 0.6 mg/dl (0-0.2); Calcium 8.3 mg/dl (8.5-10.1); Creatinine Clr Calc Pharmacy 28.6 ml/min; Est GFR (African American) 22.2; Est GFR (Non-African American) 19.1; Potassium 3.5 mmol/L (3.5-5.1)
[2020-03-08 08:05] LABS: Bilirubin,Total 1.7 mg/dl (0.2-1); Phosphorus 3.1 mg/dl (2.5-4.9); Total Protein 5.6 gm/dl (6.4-8.2)
[2020-03-08] MEDS: ASPIRIN 81 MG ECTAB PO SCH (08:27)
[2020-03-08] MEDS: METOPROLOL SUCC 50MG EXT REL TAB PO SCH (08:27)
[2020-03-08] MEDS: PIPERACILLIN/TAZOBACTAM 3.375 GM in DEXTROSE 5% 100 ML IV SCH ×2 (08:27→17:45)
[2020-03-08] MEDS: INSULIN ASPART 100 UNITS/ML 3 ML PEN SC SCH ×4 (08:28→21:22)
--- NOTE | 2020-03-08 11:55 | Hospitalist Progress Note ---
Date of Service March 08, 2020 Assessment & Plan (1) Acute confusion: Patient presented with acute metabolic encephalopathy-could be secondary to suspected acute cholecystitis as well as acute kidney injury Mentation much improved with improvement in renal function and after starting tx for suspected cholecystitis, however continues to have poor insight into his prognosis -Work-up and treatment for acute cholecystitis as below -Treatment for XAVIER as below (2) XAVIER (acute kidney injury): Multifactorial as patient was hypotensive, appeared dry and is on multiple nephrotoxic medications. He was apparently not able to get out of bed much at all the last few weeks and was urinating in a bucket in his living room where he was sleeping. He was not eating or drinking much at all. Renal function worsened with creatinine up to 4.08 and becoming acidotic--> now continues to improve with continued hydration and with NaHCO3, charge operator down to 3.2 Blood pressure is stable and continues to appear euvolemic, however has orthopnea Nonoliguric Renal ultrasound without evidence of obstruction Urinalysis is bland Appreciate nephrology consultation -DC bicarbonate drip -Continue to hold lisinopril and lasix from home. -Continue to follow BMP and urine output-no indication for urgent dialysis -No dialysis needed at this time but patient was accepting of it if needed at least temporarily Appreciate palliative care consultation for goals of care (3) Elevated LFTs: LFTs increased in an obstructive/cholestatic pattern although he no longer has any abdominal pain He had an episode of nausea with vomiting on 03/05 after eating fatty sausage for breakfast and has continued loss of appetite Right upper quadrant ultrasound obtained which showed thickened gallbladder with sludge and trace pericholecystic fluid, CBD normal in size, also with hepatic steatosis and nodular liver contour MRCP obtained shows no choledocholithiasis HIDA scan-incomplete study as patient would not cooperate by following instructi ons, however the portion that was completed did show possible acute cholecystitis No leukocytosis, remains afebrile, although mentation has significantly improved with starting antibiotics CT Abd/pel not concerning for acute christopher Surgery says overall picture likely not acute christopher, but could consider percutaneous cholecystostomy tube if worsening; no surgical intervention here at this time LFTs continue to improve today -Follow blood cultures-no growth to date -Continue empiric antibiotics with IV Zosyn for acute cholecystitis -Appreciate GI consultation-no need for ERCP -Follow LFTs in the morning, follow CBC -Can advance diet to low fat diet (4) Weight loss: Patient reporting loss of 40 pounds over last couple of months. Has a loss of appetite and possible acute cholecystitis PSA is normal. No masses on head ct or cxr. -Checked CT of the chest/abdomen/pelvis with oral contrast only to assess for malignancy--no evidence of malignancy (5) Type 2 diabetes mellitus: Patient currently not taking any medications for this at home. Metformin was previously held due to elevated creatinine Hemoglobin A1c is 8.5% here -Continue use Novolog SS, diabetic diet at home he says he just eats [place] bars no hypoglycemia per his brother, he was not making any effort to manage his DM at home (6) Atrial fibrillation: Remains rate controlled. Continue metoprolol 200 mg daily He had self discontinued his Coumadin at home prior to admission Bridged with heparin drip and now therapeutic on Coumadin -Follow INR Of note, was not compliant with Coumadin prior to admission, however with renal failure and no health insurance, he would not be able to use a DOAC (7) Back pain: Patient reports secondary to fall. Checked lumbar xray - no fracture or other abnormality He is very weak in the legs bilaterally but has been mostly laying around his house for many weeks--> improving today PT/OT and will need rehab placement (8) Hypoxia: Patient with suspected, but no formal diagnosis of COPD. Intermittently requiring 2 L nasal cannula MRCP did show small bilateral pleural effusions Continue combivent. Titrate o2 to keep pulse ox greater than 88% Pulm htn likely contributing. Patient will eventually need right heart cath. Patient was discharged with nocturnal oxygen last admission but has not been using. (9) Hypertension: Continue to hold amlodipine and lisinopril due to hypotension and acute renal failure. Will continue to monitor, continue metoprolol as above (10) Cardiomyopathy: With chronic systolic CHF, LVEF 30-35% and with severe pulmonary hypertension on echo in 11/2019 Was volume depleted at the time of this admission and was given gentle IV fluids Is now euvolemic and charge operator improving, good UOP -Continue holding home lisinopril and Lasix -Continue home Toprol-XL -Cardiology had discussed further workup including left heart cath when they saw him in November 2019 but declined at that time and now cannot due to renal failure -No utility in repeating echocardiogram at this point in time (11) CKD (chronic kidney disease): stage 3; baseline Cr about 1.5/1.6 Cr up to 4.0 here with acute kidney injury as above, now improving -Avoid nephrotoxins -renally dose meds when appropriate -follow BMP (12) Pulmonary hypertension: Severe as per echo 11/2019 -Likely secondary to lung disease (13) Tobacco abuse: Quit (14) Severe protein-calorie malnutrition: With significant weight loss and very poor appetite Dietary supplements will be encouraged once he is able to take p.o. (15) Thoracic aortic aneurysm: noted on CT CHest in ascending thoracic aorta--> measures 4.1 cm follow as outpt (16) DVT prophylaxis: Coumadin Disposition-continued stay for acute kidney injury, possible acute cholecystitis Plan for placement at [facility] as early as tomorrow if renal function continues to improve DNR/DNI His brother Ivan is his designated decision maker and has been in touch daily with palliative care team-appreciate palliative care consultation Admission and Anticipated Discharge Date Admission Date: March 02, 2020 Anticipated date of discharge: 03/09/20 Subjective Patient reports feeling okay today. Is intermittently short of breath especially with lying flat. He denies any abdominal pain or nausea. When asked if he wants to eat regular food, he states "yes I will have a popsicle." Denies chest pains. He did get up with physical therapy today and walked 3 steps in each direction. I discussed his case with nephrology. Telemetry with atrial fibrillation with rates in the 70s to 90s After discussing his condition and that his renal function and liver tests were improving but that he would need to go to rehab for his significant weakness, he replied "okay so I can go home tomorrow? I just live right down the hill. " Review of Systems Review of Systems: All systems reviewed & are unremarkable except as noted in HPI & below Physical Exam Constitutional: + obese; no acute distress (But is tachypneic when lying flat which resolved with sitting him up in bed) Neck: trachea midline, no thyromegaly Respiratory: normal respiratory effort, lungs clear to auscultation Cardiovascular: Rate/Rhythm: regular rate and + irregularly irregular Heart Sounds: no murmur Extremities: no edema Chest (Breasts): Chest: normal inspection of chest Gastrointestinal (Abdomen): normal bowel sounds, soft, nontender, no hepatosplenomegaly Musculoskeletal: Extremities: extremities normal to inspection; no cyanosis and no clubbing Skin: no rashes, warm and dry Neurologic: moves all extremities and awake; no focal motor deficits (today with 5/5 strength throughout lower extremities bilat) and not confused Motor/Sensory: no tremor Psychiatric: Orientation: alert, oriented to person, oriented to place, oriented to time and cooperative Lymphatic: no lymphedema Results & Data Results & Data ([facility]) Vital Signs (Past 12 Hours) Vital Signs Temp Pulse Resp BP BP Pulse Ox 03/08/20 07:48 37.0 C 86 20 124/73 95 03/08/20 03:45 36.6 C 81 22 120/89 96 03/08/20 00:00 36.6 C 71 20 115/77 96 Laboratory Results 03/08/20 03/08/20 03/08/20 Range/Units 16:20 11:32 07:20 WBC (4.8-10.8) K/uL RBC (4.7-6.1) M/uL Hgb (14.0-18.0) g/dL Hct (42-52) % MCV (80-100) fL MCH (25-34) pg MCHC (32-36) g/dL RDW Std Deviation (36.4-46.3) fL RDW Coeff of Liss (11.5-14.5) % Plt Count (130-400) K/uL MPV (7.4-10.4) fL Immature Gran % (Auto) % Neut % (Auto) % Lymph % (Auto) % Person % (Auto) % Eos % (Auto) % Baso % (Auto) % Immature Gran # (Auto) (0.00-0.02) K/uL Neut # (Auto) (1.4-6.5) K/uL Lymph # (Auto) (1.2-3.4) K/uL Person # (Auto) (0.11-0.59) K/uL Eos # (Auto) (0-0.5) K/uL Baso # (Auto) (0-0.2) K/uL PT (9.0-12.0) Seconds INR (0.9-1.1) Sodium (136-145) mmol/L Potassium (3.5-5.1) mmol/L Chloride (98-107) mmol/L Carbon Dioxide (21-32) mmol/L Anion Gap (3-11) BUN (7-18) mg/dl Creatinine (0.6-1.4) mg/dl Est Cr Clr Drug Dosing ml/min Est GFR ( Amer) Est GFR (Non-Af Amer) BUN/Creatinine Ratio (10-20) Glucose (70-99) mg/dl POC Glucose 102 H 149 H 114 H (70-99) mg/dl Calcium (8.5-10.1) mg/dl Phosphorus (2.5-4.9) mg/dl Total Bilirubin (0.2-1) mg/dl Direct Bilirubin (0-0.2) mg/dl AST (15-37) U/L ALT (12-78) U/L Alkaline Phosphatase (45-117) U/L Total Protein (6.4-8.2) gm/dl Albumin (3.4-5.0) gm/dl 03/08/20 03/08/20 03/08/20 Range/Units 07:10 07:10 07:10 WBC 9.05 (4.8-10.8) K/uL RBC 5.25 (4.7-6.1) M/uL Hgb 15.6 (14.0-18.0) g/dL Hct 46.6 (42-52) % MCV 88.8 (80-100) fL MCH 29.7 (25-34) pg MCHC 33.5 (32-36) g/dL RDW Std Deviation 57.2 H (36.4-46.3) fL RDW Coeff of Liss 18.4 H (11.5-14.5) % Plt Count 113 L (130-400) K/uL MPV 11.2 H (7.4-10.4) fL Immature Gran % (Auto) 0.2 % Neut % (Auto) 72.7 % Lymph % (Auto) 16.0 % Person % (Auto) 9.2 % Eos % (Auto) 1.8 % Baso % (Auto) 0.1 % Immature Gran # (Auto) 0.02 (0.00-0.02) K/uL Neut # (Auto) 6.58 H (1.4-6.5) K/uL Lymph # (Auto) 1.45 (1.2-3.4) K/uL Person # (Auto) 0.83 H (0.11-0.59) K/uL Eos # (Auto) 0.16 (0-0.5) K/uL Baso # (Auto) 0.01 (0-0.2) K/uL PT 23.5 H (9.0-12.0) Seconds INR 2.3 H (0.9-1.1) Sodium 137 (136-145) mmol/L Potassium 3.5 (3.5-5.1) mmol/L Chloride 102 (98-107) mmol/L Carbon Dioxide 27 (21-32) mmol/L Anion Gap 9.0 (3-11) BUN 58 H (7-18) mg/dl Creatinine 3.20 H D (0.6-1.4) mg/dl Est Cr Clr Drug Dosing 28.6 ml/min Est GFR ( Amer) 22.2 Est GFR (Non-Af Amer) 19.1 BUN/Creatinine Ratio 18.2 (10-20) Glucose 131 H (70-99) mg/dl POC Glucose (70-99) mg/dl Calcium 8.3 L (8.5-10.1) mg/dl Phosphorus 3.1 (2.5-4.9) mg/dl Total Bilirubin 1.7 H (0.2-1) mg/dl Direct Bilirubin 0.6 H (0-0.2) mg/dl AST 80 H (15-37) U/L ALT 140 H (12-78) U/L Alkaline Phosphatase 92 (45-117) U/L Total Protein 5.6 L (6.4-8.2) gm/dl Albumin 2.9 L (3.4-5.0) gm/dl 03/07/20 Range/Units 21:13 WBC (4.8-10.8) K/uL RBC (4.7-6.1) M/uL Hgb (14.0-18.0) g/dL Hct (42-52) % MCV (80-100) fL MCH (25-34) pg MCHC (32-36) g/dL RDW Std Deviation (36.4-46.3) fL RDW Coeff of Liss (11.5-14.5) % Plt Count (130-400) K/uL MPV (7.4-10.4) fL Immature Gran % (Auto) % Neut % (Auto) % Lymph % (Auto) % Person % (Auto) % Eos % (Auto) % Baso % (Auto) % Immature Gran # (Auto) (0.00-0.02) K/uL Neut # (Auto) (1.4-6.5) K/uL Lymph # (Auto) (1.2-3.4) K/uL Person # (Auto) (0.11-0.59) K/uL Eos # (Auto) (0-0.5) K/uL Baso # (Auto) (0-0.2) K/uL PT (9.0-12.0) Seconds INR (0.9-1.1) Sodium (136-145) mmol/L Potassium (3.5-5.1) mmol/L Chloride (98-107) mmol/L Carbon Dioxide (21-32) mmol/L Anion Gap (3-11) BUN (7-18) mg/dl Creatinine (0.6-1.4) mg/dl Est Cr Clr Drug Dosing ml/min Est GFR ( Amer) Est GFR (Non-Af Amer) BUN/Creatinine Ratio (10-20) Glucose (70-99) mg/dl POC Glucose 142 H (70-99) mg/dl Calcium (8.5-10.1) mg/dl Phosphorus (2.5-4.9) mg/dl Total Bilirubin (0.2-1) mg/dl Direct Bilirubin (0-0.2) mg/dl AST (15-37) U/L ALT (12-78) U/L Alkaline Phosphatase (45-117) U/L Total Protein (6.4-8.2) gm/dl Albumin (3.4-5.0) gm/dl PG Care Time/CCT Total # of Minutes Spent Total Time Spent with Patient: Total time spent is greater than 50% in coordination of care (as documented) at patient's floor/unit and/or counseling patient: Coding Level of Care Code 33510 Subseq Hosp Care Lvl 3 Diagnoses Acute confusion R41.0 XAVIER (acute kidney injury) N17.9 Elevated LFTs R79.89 Weight loss R63.4 Type 2 diabetes mellitus E11.9 Atrial fibrillation I48.91 Atrial fibrillation type: unspecified Back pain M54.9 Hypoxia R09.02 Hypertension I10 Cardiomyopathy I42.9 CKD (chronic kidney disease) N18.9 Pulmonary hypertension I27.20 Tobacco abuse Z72.0 Severe protein-calorie malnutrition E43 Thoracic aortic aneurysm I71.2 DVT prophylaxis Z29.9 (1) Atrial fibrillation Atrial fibrillation type: unspecified Qualified Code(s): I48.91 - Unspecified atrial fibrillation
--- NOTE | 2020-03-08 12:17 | Nephrology Progress Note ---
Date of Service March 08, 2020 Assessment & Plan (1) XAVIER (acute kidney injury): 64 Year old male with past medical history of hypertension, diabetes, stage III CKD, admitted to the hospital with XAVIER, generalized weakness and weight loss over last 1 month. Renal function has been relatively stable since admission, electrolyte acceptable. Remained nonoliguric. Urinalysis with trace proteinuria but no hematuria or pyuria. Unclear etiology for XAVIER, could be hemodynamically mediated with volume depletion with history of poor p.o. intake with concomitant use of diuretics and lisinopril. Urinalysis is not suggestive of any intrinsic renal pathology. History dense not suggestive of postrenal obstruction however cannot rule out the possibility. Renal function has been relatively stable without any changes, creatinine has been stable around 3.6-2 in 3.8, electrolyte acceptable. Volume status, blood pressure stable, decent urine output. Renal ultrasound showed otherwise normal size kidney without any hydronephrosis. Renal function slightly improved continues to have decent urine output, blood pressure and volume status acceptable. Denies any shortness of breath or chest pain. No lower extremity edema edema. Has been on IV fluid for last 2 days. Although clinically no clear sign of volume overload however imaging study showed abdominal wall edema and ascites and pulmonary congestion --DC IV fluid, encourage p.o. intake --continue to hold CHARITO-inhibitor/ARB, diuretics, monitor renal function electrolyte with daily renal panel --will need some physical therapy prior to discharge Will follow Admission and Anticipated Discharge Date Admission Date: March 02, 2020 Clinton Hernandez was seen and examined in his room this morning. He was lying in bed comfortably, denies any shortness of breath or chest pain. Has been voiding normally. Blood pressure decent. Volume status acceptable. Renal function slightly improved creatinine down to 3.2, electrolyte acceptable. Review of Systems Review of Systems: All systems reviewed & are unremarkable except as noted in HPI & below Physical Exam Constitutional: WD/WN, vitals as above + ill appearing and + obese; no a cute distress Respiratory: normal respiratory effort; no respiratory distress Auscultation: + diminished lung sounds Cardiovascular: RRR, no murmur, no edema Rate/Rhythm: regular rate and + irregularly irregular Heart Sounds: normal S1 and normal S2 Skin: no rashes, warm and dry Neurologic: moves all extremities and awake; no focal motor deficits and not confused Psychiatric: A+Ox3, euthymic affect Results & Data ([facility]) Vital Signs (Past 12 Hours) Vital Signs Temp Pulse Resp BP BP Pulse Ox 03/08/20 11:57 36.9 C 82 19 112/79 96 03/08/20 07:48 37.0 C 86 20 124/73 95 03/08/20 03:45 36.6 C 81 22 120/89 96 PG Care Time/CCT Total # of Minutes Spent Total Time Spent with Patient: Total time spent is greater than 50% in coordination of care (as documented) at patient's floor/unit and/or counseling patient: Coding Level of Care Code 10382 Subseq Hosp Care Lvl 3 Diagnoses XAVIER (acute kidney injury) N17.9
--- NOTE | 2020-03-08 13:57 | Palliative Care Progress Note ---
Date of Service March 08, 2020 Assessment & Plan (1) Goals of care, counseling/discussion: -Palliative MD visited patient this afternoon. I spoke with his brother, Ivan, on phone. -Ivan is pleased to hear that patient's condition is somewhat improving. Plan remains for allan to go to [facility] for rehab after hospitalization. Per case management notes, bed available on 03/09. -Ivan will continue to discuss goals of care with the patient. Again, he feels that patient would not do well with dialysis if it came to that, but doesn't want to deny his brother treatment if that's what patient wants. He is hoping patient's mental status continues to clear enough to make sound decision. -Please contact palliative care team with any further needs. We will just follow peripherally at this time. (2) Weight loss: (3) Severe protein-calorie malnutrition: (4) XAVIER (acute kidney injury): Subjective Per documentation, patient's mental status seems to be improving. Creatinine improving. Patient still having some lack of insight into his condition, but he is pleasant and cooperative per the patient's brother and palliative MD. Results & Data Vital Signs (Past 12 Hours) Vital Signs Temp Pulse Resp BP BP Pulse Ox 03/08/20 11:57 36.9 C 82 19 112/79 96 03/08/20 07:48 37.0 C 86 20 124/73 95 03/08/20 03:45 36.6 C 81 22 120/89 96 Supervising Physician Co-Signing Physician Notes Patient seen and examined, collaborated with CHERI Kennedy Patient awake and alert, less short of breath at rest compared to prior exams. PE: Awake and alert, NAD Respiratory: Shortness of breath with minimal exertion, diminished breath sounds at bases CV: Regular rate Abdomen: Soft, nontender, obese Extremities: Severe generalized weakness Neuro: Alert and oriented Psych: Poor insight to his multiple medical issues Agree with above note, assessment and plan as per CHERI Kennedy-plan is for transfer to [facility] for rehab on 03/09. Coding Level of Care Code 02093 Subseq Hosp Care Lvl 3 Diagnoses Goals of care, counseling/discussion Z71.89 Weight loss R63.4 Severe protein-calorie malnutrition E43 XAVIER (acute kidney injury) N17.9 Time Spent (min) 40 Time Spent Midlevel A total of 25 minutes spent by this PARTS ASSEMBLER in reviewing chart, speaking with zan garcia MD, and speaking with patients brother regarding condition and plan of care. Attending Spent 15 minutes in addition to the 25 minutes spent by CHERI Kennedy for a total of 40 minutes with greater than 50% of the time spent at bedside assessing patient's current status and reviewing goals of care.
[2020-03-08] MEDS: WARFARIN SOD 2 MG TAB PO SCH (17:41)
[2020-03-09] MEDS: PIPERACILLIN/TAZOBACTAM 3.375 GM in DEXTROSE 5% 100 ML IV SCH ×2 (00:08→08:16)
[2020-03-09 05:56] LABS: Prothrombin Time 20.6 Seconds (9.0-12.0)
[2020-03-09 06:17] LABS: BUN Creatinine Ratio 18.3 (10-20); Bilirubin Direct 0.6 mg/dl (0-0.2); Calcium 8.6 mg/dl (8.5-10.1); Creatinine Clr Calc Pharmacy 32.6 ml/min; Est GFR (Non-African American) 22.4; Potassium 3.8 mmol/L (3.5-5.1)
[2020-03-09 06:20] LABS: Bilirubin,Total 1.8 mg/dl (0.2-1); Phosphorus 3.4 mg/dl (2.5-4.9); Total Protein 5.9 gm/dl (6.4-8.2)
[2020-03-09 06:54] VITALS: TEMP 97.5; O2SAT 96
[2020-03-09] MEDS: METOPROLOL SUCC 50MG EXT REL TAB PO SCH (08:15)
[2020-03-09] MEDS: ASPIRIN 81 MG ECTAB PO SCH (08:15)
[2020-03-09] MEDS: INSULIN ASPART 100 UNITS/ML 3 ML PEN SC SCH ×2 (08:19→12:49)
[2020-03-09 11:57] VITALS: BP 118/86; PULSE 69
--- NOTE | 2020-03-09 11:58 | Nephrology Progress Note ---
Date of Service March 09, 2020 Assessment & Plan (1) XAVIER (acute kidney injury): 64 Year old male with past medical history of hypertension, diabetes, stage III CKD, admitted to the hospital with XAVIER, generalized weakness and weight loss over last 1 month. Renal function has been relatively stable since admission, electrolyte acceptable. Remained nonoliguric. Urinalysis with trace proteinuria but no hematuria or pyuria. Unclear etiology for XAVIER, could be hemodynamically mediated with volume depletion with history of poor p.o. intake with concomitant use of diuretics and lisinopril. Urinalysis is not suggestive of any intrinsic renal pathology. History dense not suggestive of postrenal obstruction however cannot rule out the possibility. Renal function has been relatively stable without any changes, creatinine has been stable around 3.6-2 in 3.8, electrolyte acceptable. Volume status, blood pressure stable, decent urine output. Renal ultrasound showed otherwise normal size kidney without any hydronephrosis. Renal function slightly improved continues to have decent urine output, blood pressure and volume status acceptable. Denies any shortness of breath or chest pain. No lower extremity edema edema. --continue to hold CHARITO-inhibitor/ARB and diuretics on discharge while recovering from XAVIER, suggest monitoring renal function and electrolyte with labs early next week and then in a week after that. Continue to encourage p.o. intake, avoid nephrotoxic medications including NSAIDs. --outpatient follow-up can be scheduled in 4-6 weeks with lab prior to the visit Will follow while inpatient. Admission and Anticipated Discharge Date Admission Date: March 02, 2020 Clinton Hernandez was seen and examined in his room this morning. He seems comfortable, denies any shortness of breath or chest pain. Has been voiding normally. Blood pressure decent. Volume status acceptable. Renal function slowly improving creatinine down to 2.8, electrolyte acceptable. Review of Systems Review of Systems: All systems reviewed & are unremarkable except as noted in HPI & below Physical Exam Constitutional: WD/WN, vitals as above + ill appearing and + obese; no acute distress Respiratory: normal respiratory effort; no respiratory distress Auscultation: + diminished lung sounds and + crackles (b/l bases) Skin: no rashes, warm and dry Neurologic: moves all extremities Psychiatric: A+Ox3, euthymic affect Results & Data ([facility]) Vital Signs (Past 12 Hours) Vital Signs Temp Pulse Resp BP Pulse Ox 03/09/20 06:52 36.4 C L 88 20 119/83 96 PG Care Time/CCT Total # of Minutes Spent Total Time Spent with Patient: Total time spent is greater than 50% in coordination of care (as documented) at patient's floor/unit and/or counseling patient: Coding Level of Care Code 88677 Subseq Hosp Care Lvl 3 Diagnoses XAVIER (acute kidney injury) N17.9
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
== END 2020-03-09 14:16 | DRG 444 ==
LOC: ED 11:02 → 2S 13:35 → SUATTDRO 13:35 → 2S 14:18 → 3E 03-08 19:29